=== PATIENT | male | born 1945 | race Caucasian/White ===

== ENCOUNTER 2024-06-14 10:34 | Outpatient (AMB) | payer MEDICAID, SELFPAY ==
--- NOTE | 2024-06-14 10:36 | A.OFFVIS_ITS ---
Vital Signs 06/14/24 10:45 Height 5 ft 6 in Weight 235 lb BMI 37.9 BP 143/76 H Blood Pressure Location Lt brachial Position Sitting Pulse 69 Intake Visit Reasons: Recurrent pilonidal cyst Intake Note: Patient is seen in office for a recurrent pilonidal cyst. Pt c/o: onset one month, irritated, no discharge Manager Gaming Required: No Accompanied by: Other Relationship Allergies Penicillins Allergy (Mild, Verified 06/14/24 10:43) Unknown HPI Comments Details: 70-year-old male patient presenting with complaints of pain over the lower spine for the past month. He reports a prior history of a pilonidal cyst which drained spontaneously in 1971. He denies any subsequent problems following this. He denies any recent fall or other trauma to his spine. He feels he has a new abscess which needs to be drained. He denies fever or chills. [facility] Medical History (Updated 06/14/24 @ 11:01 by Jeff Holder MD) Pilonidal cyst Surgical History Hx of melanoma excision (~2016) Hx of appendectomy (~1954) Hx of lithotripsy (~11/2021) Hx of cardiac pacemaker (~08/2021) Family History Sister FH: ovarian cancer Review of Systems Const Unobtainable due to mental condition Physical Exam Const General: no acute distress Nutritional Appearance: well nourished Orientation/consciousness: patient oriented x3 Limitations: wheelchair Resp Effort & Inspection: normal respiratory effort Back/Spine/Pelvis Other: Intergluteal cleft with an area of slight redness measuring approximately 3 cm in diameter. No fluctuance is palpable and no evidence of an active pilonidal cyst abscess. Area is tender to palpation however. Skin Other: Warm and dry Neuro General: patient oriented x3 Assessment & Plan Assessment & Plan (1) Cellulitis of buttock: Code(s): L03.317 - Cellulitis of buttock Category: Medical Plan 78-year-old male patient presenting with an area of tenderness in the intergluteal cleft suggestive of a pilonidal cyst however on examination there is some skin redness but no evidence of underlying fluctuance to indicate an abscess. I recommended starting antibiotics for 10 days and returning in 2 weeks for follow-up examination. He expressed understanding and agrees with the plan. Coding Level of Care Code New Pt Level 4 (91610) Diagnoses Cellulitis of buttock L03.317
[2024-06-14 10:45] VITALS: BP 143/76; PULSE 69; BMI 37.9
== END 2024-06-14 10:59 | disposition home or self-care (01) ==
PROVIDERS: PCP Emergency Medicine; Visit Provider Surgery
DX: L03.317 Cellulitis of buttock (principal)
CPT/HCPCS: 99204

== ENCOUNTER → 2024-06-14 10:34 | Outpatient (BNVA) | payer MEDICAID, SELFPAY | PROVIDERS: PCP Emergency Medicine; Visit Provider Surgery | DX: L03.317 Cellulitis of buttock (principal) | CPT/HCPCS: 99202 ==

== ENCOUNTER 2024-06-28 08:37 | Outpatient (AMB) | payer MEDICAID, SELFPAY ==
[2024-06-28 08:53] VITALS: BMI 37.9
--- NOTE | 2024-06-28 08:53 | A.OFFVIS_ITS ---
Vital Signs 06/28/24 08:53 Height 5 ft 6 in Weight 234 lb 15.992 oz BMI 37.9 Intake Visit Reasons: 2 week follow up Recurrent pilonidal cyst Intake Note: Patient is seen in office for 2 week follow up, following recurrent pilonidal cyst. Pt c/o: reports no complaints at this time. Hoop Flaring Machine Operator Required: No Accompanied by: IT WEB DEVELOPMENT CONSULTANT Allergies Penicillins Allergy (Mild, Verified 06/28/24 08:59) Unknown Medication List - Last Reconciled 06/28/24 by Jeff Holder MD acetaminophen 650 mg PO Q6H PRN albuterol sulfate 90 mcg/actuation 1 inh inhalation QID allopurinol 200 mg PO DAILY apixaban 5 mg PO BID aspirin (Adult Aspirin Regimen) 81 mg PO DAILY atorvastatin 80 mg PO DAILY cholecalciferol (vitamin D3) (Optimal D3) 1,250 mcg PO QWEEK dextrose 40% 10 grams PO Q15M PRN docusate sodium 100 mg PO DAILY epinephrine 0.3 mg IM Q10M PRN fluoride (sodium) 1.1% (PreviDent 5000 Booster Plus) 1 appl dental BEDTIME furosemide 40 mg PO QAM gabapentin 100 mg PO BID glucagon mg subcut guaifenesin ER 600 mg PO Q12H PRN ipratropium-albuterol 18-103 mcg/actuation sprays inhalation mecobalamin (vitamin B12) mcg PO metoprolol succinate ER 12.5 mg PO DAILY naloxone 0.4 mg subcut Q2M PRN polyethylene glycol 3350 17 grams PO DAILY potassium chloride ER 10 mEq PO DAILY tamsulosin 0.4 mg PO DAILY thiamine HCl (vitamin B1) 100 mg PO DAILY umeclidinium 62.5 mcg/actuation (Incruse Ellipta) 1 inh inhalation DAILY HPI Comments Details: Patient returns for follow-up examination for possible pilonidal cyst. He reports continued pain but denies any redness. He does report a history of trauma to the area several years ago while being transported to the hospital. He is concerned that it could be bone injury to the spine. Denies any bleeding or discharge from the skin. [facility] Medical History Pilonidal cyst Surgical History Hx of melanoma excision (~2016) Hx of appendectomy (~195) Hx of lithotripsy (~11/2021) Hx of cardiac pacemaker (~08/2021) Family History Sister FH: ovarian cancer Social History Unable to assess alcohol history related to: Unknown Patient Tobacco Use Status: Tobacco use Unknown Review of Systems Const Unobtainable due to mental condition Physical Exam Vital Signs: BMI result Body Mass Index 37.9 Const General: no acute distress Nutritional Appearance: well nourished Orientation/consciousness: patient oriented x3 Limitations: wheelchair Resp Effort & Inspection: normal respiratory effort Back/Spine/Pelvis Other: Intergluteal cleft with an area of slight redness measuring approximately 3 cm in diameter. No fluctuance is palpable and no evidence of an active pilonidal cyst abscess. Area is tender to palpation however over the coccyx, well below the area of redness.. Skin Other: Warm and dry Neuro General: patient oriented x3 Assessment & Plan Assessment & Plan (1) Coccydynia: Code(s): M53.3 - Sacrococcygeal disorders, not elsewhere classified Category: Medical Plan Finding is suggestive of coccydynia possibly arthritic or posttraumatic. Suggest obtaining CT of the pelvis to evaluate region of pain. Patient will return following the study to discuss results. Orders: Orders CT pelvis wo IV con Today M53.3 - Sacrococcygeal disorders, not elsewhere classified Coding Level of Care Code Est Pt Level 3 (50938) Diagnoses Coccydynia M53.3
== END 2024-06-28 09:24 | disposition home or self-care (01) ==
LOC: HO.HGS 08:37
PROVIDERS: PCP Emergency Medicine; Visit Provider Surgery
DX: M53.3 Sacrococcygeal disorders, not elsewhere classified (principal)
CPT/HCPCS: 99213

== ENCOUNTER → 2024-06-28 08:37 | Outpatient (BNVA) | payer MEDICAID, SELFPAY | PROVIDERS: PCP Emergency Medicine; Visit Provider Surgery | DX: M53.3 Sacrococcygeal disorders, not elsewhere classified (principal) | CPT/HCPCS: 99212 ==

== ENCOUNTER 2024-08-09 12:48 | Outpatient (REF) | payer MEDICAID, SELFPAY | END 2024-08-09 12:49 | disposition home or self-care (01) | LOC: HO.CT 12:48 | PROVIDERS: PCP Emergency Medicine; Visit Provider Surgery | DX: M53.3 Sacrococcygeal disorders, not elsewhere classified (principal) | CPT/HCPCS: 72192 ==

== ENCOUNTER → 2024-08-09 12:51 | Outpatient (BNV) | payer MEDICAID, SELFPAY | PROVIDERS: PCP Emergency Medicine; Visit Provider Radiology Diagnostic Radiology | DX: M53.3 Sacrococcygeal disorders, not elsewhere classified (principal) | CPT/HCPCS: 72192 ==

== ENCOUNTER 2024-09-17 08:17 | Outpatient (AMB) | payer MEDICAID, SELFPAY ==
--- OUTSIDE RECORDS SUMMARY | 2024-09-17 08:38 | XMS_ITS | Encounter Summary ---
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 Social History Tobacco Use Types Packs/Day Years Used Date Smoking Tobacco: Never Assessed Sex and Gender Information Value Date Recorded Sex Assigned at Not on file Gender Identity Not on file Sexual Orientation Not on file documented as of this encounter Plan of Treatment Not on file documented as of this encounter Procedures Procedure Name Priority Date/Time Associated Diagnosis Comments DRUG ABUSE SCREEN, URINE Routine 08/05/2024 12:00 AM EST Other snf (current) drug therapy documented in this encounter Results * Drug abuse screen, urine (08/05/2024 12:00 AM EST) Amphetamines Urine Negative Cutoff=10 00 ng/mL 08/08/2024 11:05 AM EST [facility] Comment:Amphetamine test inc ludes Amphetamine and Methamphetamine. Barbiturate Negative Cutoff=30 0 ng/mL 08/08/2024 11:05 AM EST [facility] Benzodiazepines Negative Cutoff=30 0 ng/mL 08/08/2024 11:05 AM EST [facility] Cannabinoid Negative Cutoff=50 ng/mL 08/08/2024 11:05 AM EST [facility] Cocaine (Metabolite) Screen Urine Negative Cutoff=30 0 ng/mL 08/08/2024 11:05 AM EST [facility] Opiates Negative Cutoff=30 0 ng/mL 08/08/2024 11:05 AM EST [facility] Comment:Opiate test includes Codeine and Morphine only. Phencyclidine (PCP) Negative Cutoff=25 ng/mL 08/08/2024 11:05 AM EST [facility] Ethanol Urine Negative Cutoff=0. 020 % 08/08/2024 11:05 AM EST [facility] Urine Urine specimen obtained by clean catch procedure / Unknown Non-blood Collection / Unknown 08/05/2024 08/06/2024 11:10 AM EST Narrative [facility] - 08/08/2024 11:05 AM EST Performed at: ??01 - [facility] [address] [place], [place] ??[id number] R Programmer: Lavelle Johnson PhD, Phone: ??[phone] Homar Watson MD LAB URINE ORDERABLES [facility] documented in this encounter Visit Diagnoses Diagnosis Other snf (current) drug therapy documented in this encounter Care Teams Manager Night Relationship Specialty Start Date End Date Homar Watson MD [address] [place] [address] PCP - General Family Medicine 07/11/24 documented as of this encounter
--- OUTSIDE RECORDS SUMMARY | 2024-09-17 08:39 | XMS_ITS | Encounter Summary ---
Author Organization [employer] Address [address] [place] [address] Care Team Providers Care Digital Marketing Lead Name Role Phone Homar Watson MD Primary Care Provider Encounter Details Date Type Department Care Team (Latest Contact Info) Description 07/11/2024 Lab Requisition [facility] - Main Lab [address] [facility] [place] [address] Homar Watson MD [facility] [address] [place], [place] [id number] Chronic kidney disease, unspecified; Type 2 diabetes mellitus without complications (CMS/HCC) Social History Tobacco Use Types Packs/Day Years Used Date Smoking Tobacco: Never Assessed Sex and Gender Information Value Date Recorded Sex Assigned at Not on file Gender Identity Not on file Sexual Orientation Not on file documented as of this encounter Plan of Treatment Not on file documented as of this encounter Procedures Procedure Name Priority Date/Time Associated Diagnosis Comments BASIC METABOLIC PANEL Routine 07/11/2024 5:11 AM EST Chronic kidney disease, unspecified Type 2 diabetes mellitus without complications (CMS/HCC) documented in this encounter Results * (ABNORMAL) Basic metabolic panel (07/11/2024 5:11 AM EST) Sodium 141 133 - 145 mmol/L LAB CHEMISTRY METHOD 07/11/2024 9:03 AM [facility] LAB Potassium 4.5 3.5 - 5.5 mmol/L LAB CHEMISTRY METHOD 07/11/2024 9:03 AM EST [facility] LAB Chloride 102 96 - 110 mmol/L LAB CHEMISTRY METHOD 07/11/2024 9:03 AM [facility] LAB CO2 34(H) 21 - 32 mmol/L LAB CHEMISTRY METHOD 07/11/2024 9:03 AM EST [facility] LAB Anion Gap 5 3 - 11 LAB CHEMISTRY METHOD 07/11/2024 9:03 AM [facility] LAB Glucose 134(H) 70 - 100 mg/dL LAB CHEMISTRY METHOD 07/11/2024 9:03 AM [facility] BUN 21 5 - 25 mg/dL LAB CHEMISTRY METHOD 07/11/2024 9:03 AM [facility] LAB Creatinine 1.31(H) 0.70 - 1.30 mg/dL LAB CHEMISTRY METHOD 07/11/2024 9:03 AM [facility] LAB eGFR 56(L) >=60 mL/min/1. 73m2 LAB CHEMISTRY METHOD 07/11/2024 9:03 AM [facility] LAB Comment:Calculation based on the??Chronic Kidney Disease Epidemiology Collaboration (CKD-EPI) equation refit??without adjustment for race. BUN/Creatinine Ratio 16.0 LAB CHEMISTRY METHOD 07/11/2024 9:03 AM [facility] LAB Calcium 9.3 8.5 - 10.5 mg/dL LAB CHEMISTRY METHOD 07/11/2024 9:03 AM [facility] LAB Blood Venous blood specimen / Unknown Venipuncture / Unknown 07/11/2024 5:11 AM EST 07/11/2024 7:54 AM EST Homar Watson MD LAB BLOOD ORDERABLES [facility] LAB [address] [place] [address], documented in this encounter Visit Diagnoses Diagnosis Chronic kidney disease, unspecified Type 2 diabetes mellitus without complications (CMS/HCC) documented in this encounter Care Teams Digital Marketing Lead Relationship Specialty Start Date End Date Homar Watson MD [address] [place] [address] PCP - General Family Medicine 07/11/24 documented as of this encounter
--- OUTSIDE RECORDS SUMMARY | 2024-09-17 08:39 | XMS_ITS | Encounter Summary ---
Author Organization [employer] Address [address] [place] [address] Care Team Providers Care Recreational Therapy Technician Name Role Phone Homar Watson MD Primary Care Provider Encounter Details Date Type Department Care Team (Late st Contact Info) Description 07/22/2024 Lab Requisition [facility] - Main Lab [address] [facility] [place] [address] Homar Watson MD [address] [place] [address] Elevated urine levels of drugs, medicaments and biological substances; Encounter for blood-alcohol and blood-drug test Social History Tobacco Use Types Packs/Day Years Used Date Smoking Tobacco: Never Assessed Sex and Gender Information Value Date Recorded Sex Assigned at Not on file Gender Identity Not on file Sexual Orientation Not on file documented as of this encounter Plan of Treatment Not on file documented as of this encounter Procedures Procedure Name Priority Date/Time Associated Diagnosis Comments DRUG ABUSE SCREEN 8A PANEL, URINE Routine 07/21/2024 11:00 AM EST Elevated urine levels of drugs, medicaments and biological substances Encounter for blood-alcohol and blood-drug test documented in this encounter Results * Drug abuse screen 8a panel, urine (07/21/2024 11:00 AM EST) Amphetamine Screen, Ur Negative Negative LAB CHEMISTRY METHOD 07/22/2024 3:17 PM EST [facility] Comment:Certain OTC medicati ons containing ephedrine, phenylephrine, pseudoephedrine and phenylpropanolamine can cause false positive results. Barbiturate Screen, Ur Negative Negative LAB CHEMISTRY METHOD 07/22/2024 3:17 PM EST [facility] Benzodiazepine Screen, Ur Negative Negative LAB CHEMISTRY METHOD 07/22/2024 3:17 PM EST [facility] Cocaine Screen, Ur Negative Negative LAB CHEMISTRY METHOD 07/22/2024 3:17 PM EST [facility] Opiate Screen, Ur Negative Negative LAB CHEMISTRY METHOD 07/22/2024 3:17 PM EST [facility] Cannabinoid (THC) Screen, Ur Negative Negative LAB CHEMISTRY METHOD 07/22/2024 3:17 PM EST [facility] Comment:Specimens from patie nts taking pantoprazole sodium (Protonix) have been shown to produce false positive results. Oxycodone Screen, Ur Negative Negative LAB CHEMISTRY METHOD 07/22/2024 3:17 PM EST [facility] Fentanyl, Ur Negative Negative LAB CHEMISTRY METHOD 07/22/2024 3:17 PM EST [facility] Urine Urine specimen obtained by clean catch procedure / Unknown 07/21/2024 11:00 AM EST 07/22/2024 11:41 AM EST Narrative [facility] - 07/22/2024 3:17 PM EST Assay cutoffs: Amphetamines ? 1000 ng/mL Barbiturates ?200 ng/mL Benzodiazepines ?? 200 ng/mL Cocaine ? 300 ng/mL Fentanyl ?1 ng/mL Opiates ? 300 ng/mL Oxycodone ? 100 ng/mL THC ?50 ng/mL Semi-quantitative assay for screening purposes only. Unconfirmed screening result should not be used for non-medical purposes. *ALTERNATE METHOD CONFIRMATION DONE UPON REQUEST ONLY* Homar Watson MD LAB URINE ORDERABLES [facility] LAB [address] [place] [address], documented in this encounter Visit Diagnoses Diagnosis Elevated urine levels of drugs, medicaments and biological substances Encounter for blood-alcohol and blood-drug test documented in this encounter Care Teams Recreational Therapy Technician Relationship Specialty Start Date End Date Homar Watson MD [address] [place] [address] PCP - General Family Medicine 07/11/24 documented as of this encounter
--- OUTSIDE RECORDS SUMMARY | 2024-09-17 08:40 | XMS_ITS | Clinical Summary ---
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 07/22/2024 Lab Requisition [facility] Lab [address] [place] [phone] Homar Watson MD Elevated urine levels of drugs, medicaments and biological substances; Encounter for blood-alcohol and blood-drug test 07/11/2024 Lab Requisition [facility] Lab [address] [place] [phone] Homar Watson MD Chronic kidney disease, unspecified; Type 2 diabetes mellitus without complications (CMS/HCC) from Last 3 Months Social History Tobacco Use Types Packs/Day Years Used Date Smoking Tobacco: Never Assessed Sex and Gender Information Value Date Recorded Sex Assigned at Not on file Gender Identity Not on file Sexual Orientation Not on file Plan of Treatment Health Maintenance Due Date Last Done Comments Pneumococcal Vaccine: 65+ Ye ars (1 of 2 - PCV) 1951 Diabetes: Annual Foot Exam 1955 Diabetes: Annual Retina Eye Exam 1955 DTaP,Tdap,and Td Vaccines (1 - Tdap) 1964 Zoster Vaccines (1 of 2) 1995 RSV Immunization Patients 60 + Years Old (1 - 1-dose 75+ series) 2020 COVID-19 Vaccine ( - 2023-2 5 season) 2024 Influenza Vaccine (#1) 2024 Cholesterol Screening (Lipid Panel) 06/16/2024 Depression Screening 06/16/2024 Falls Risk Assessment 06/16/2024 Hepatitis C Screening 06/16/2024 Social Influencers of Health Screening 06/16/2024 Diabetes: Annual Urine Albumin-Creatinine Ratio (uACR) 07/11/2024 Diabetes: Blood Sugar Contro l Test (HGBA1C) 07/11/2024 Diabetes: Annual GFR (Glomer ular Filtration Rate) 07/11/2025 07/11/2024 HIB Vaccines Aged Out No longer eligi ble based on patient's age to complete this topic HPV Vaccines Aged Out No longer eligi ble based on patient's age to complete this topic Hepatitis A Vaccines Aged Out No long er eligible based on patient's age to complete this topic Hepatitis B Vaccines Aged Out No long er eligible based on patient's age to complete this topic IPV Vaccines Aged Out No longer eligi ble based on patient's age to complete this topic MMR Vaccines Aged Out No longer eligi ble based on patient's age to complete this topic Meningococcal ACWY Vaccine Aged Out N o longer eligible based on patient's age to complete this topic RSV Immunization Patients Un mayo 20 months Aged Out No longer eligible b ased on patient's age to complete this topic Varicella Vaccines Aged Out No longer eligible based on patient's age to complete this topic Procedures Procedure Name Priority Date/Time Associated Diagnosis Comments DRUG ABUSE SCREEN, URINE Routine 08/05/2024 12:00 AM EST Other fci (current) drug therapy DRUG ABUSE SCREEN 8A PANEL, URINE Routine 07/21/2024 11:00 AM EST Elevated urine levels of drugs, medicaments and biological substances Encounter for blood-alcohol and blood-drug test BASIC METABOLIC PANEL Routine 07/11/2024 5:11 AM EST Chronic kidney disease, unspecified Type 2 diabetes mellitus without complications (CMS/HCC) from Last 3 Months Results * Drug abuse screen, urine (08/05/2024 [...] AM EST Performed at: ??01 - [facility] [address] [place], [place] ??[id number] Mechanics Supervisor: Lavelle Johnson PhD, Phone: ??[phone] Homar Watson MD LAB URINE ORDERABLES [facility] * Drug abuse screen 8a panel, urine [...] Negative LAB CHEMISTRY METHOD 07/22/2024 3:[address] [facility] Urine Urine specimen obtained by clean catch procedure / Unknown 07/21/2024 11:00 AM EST 07/22/2024 11:41 AM EST [facility] - 07/22/2024 3:17 PM EST Assay [...] ONLY* Homar Watson MD LAB URINE ORDERABLES [facility] LAB [address] [place] [address], * (ABNORMAL) Basic metabolic panel (07/11/2024 5:11 AM EST) Sodium 141 133 - 145 mmol/L LAB CHEMISTRY METHOD 07/11/2024 9:[address] [facility] Potassium 4.5 3.5 - 5.5 mmol/L LAB CHEMISTRY METHOD 07/11/2024 9:[address] [facility] Chloride 102 96 - 110 mmol/L LAB CHEMISTRY METHOD 07/11/2024 9:[address] [facility] CO2 34(H) 21 - 32 mmol/L LAB CHEMISTRY METHOD 07/11/2024 9:[address] [facility] Anion Gap 5 3 - 11 LAB CHEMISTRY METHOD 07/11/2024 9:[address] [facility] Glucose 134(H) 70 - 100 mg/dL LAB CHEMISTRY METHOD 07/11/2024 9:[address] [facility] BUN 21 5 - 25 mg/dL LAB CHEMISTRY METHOD 07/11/2024 9:[address] [facility] Creatinine 1.31(H) 0.70 - 1.30 mg/dL LAB CHEMISTRY METHOD 07/11/2024 9:[address] [facility] eGFR 56(L) >=60 mL/min/1. 73m2 LAB CHEMISTRY METHOD 07/11/2024 9:[address] [facility] Comment:Calculation based on the??Chronic Kidney Disease Epidemiology Collaboration (CKD-EPI) equation refit??without adjustment for race. BUN/Creatinine Ratio 16.0 LAB CHEMISTRY METHOD 07/11/2024 9:[address] [facility] Calcium 9.3 8.5 - 10.5 mg/dL LAB CHEMISTRY METHOD 07/11/2024 9:[address] [facility] Blood Venous blood specimen / Unknown Venipuncture / Unknown 07/11/2024 5:11 AM EST 07/11/2024 7:54 AM EST Homar Watson MD LAB BLOOD ORDERABLES [facility] LAB [address] [place] [address], from Last 3 Months Care Teams Wheel Assembler Relationship Specialty Start Date End Date Homar Watson MD [address] [place] [address] PCP - General Family Medicine 07/11/24
--- NOTE | 2024-09-17 08:47 | MHC.OFFVIS ---
Vital Signs 09/17/24 08:55 Height 5 ft 6 in Weight 230 lb BMI 37.1 BP 124/58 L Blood Pressure Location Lt brachial Position Sitting Pulse 70 Intake Visit Reasons: CT Reults (Dr Holder patient) Intake Note: Dr. Holder out this morning. Patient being seen by Dr. Florez. Patient here to discuss Pelvis CT results. CT~ 08-09-2024. Director Commercial Sales Required: No Accompanied by: Thelma BENNETT from [facility] Allergies Penicillins Allergy (Mild, Verified 09/17/24 08:57) Unknown HPI Comments Details: Patient presents with a family member. He is wheelchair bound. Dr. Holder was unable to see the patient this morning and I am reviewing the patient's CT scan results with him. 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 A copy of the scan results were given to the patient. [facility] Medical History Pilonidal cyst Surgical History Hx of melanoma excision (~2016) Hx of appendectomy (~1954) Hx of lithotripsy (~11/2021) Hx of cardiac pacemaker (~08/2021) Family History Sister FH: ovarian cancer Social History Unable to assess alcohol history related to: Unknown Patient Tobacco Use Status: Tobacco use Unknown Physical Exam Vital Signs: Last Vital Signs Pulse 70 09/17/24 08:55 BP 124/58 L 09/17/24 08:55 BMI result Body Mass Index 37.1 Back/Spine/Pelvis Other: Status quo Assessment & Plan Assessment & Plan (1) Coccydynia: Code(s): M53.3 - Sacrococcygeal disorders, not elsewhere classified Category: Surgical Plan I discussed with the patient therapeutic options which include conservative therapy with is taking analgesics, consideration for evaluation by other chronic pain clinic or neurosurgery. He would like to pursue chronic pain clinic and arrangements were made for this. All questions answered. Patient will otherwise follow-up p.r.n.. No acute surgical issues to be addressed at this time. Coding Level of Care Code Est Pt Level 3 (53428) Diagnoses Coccydynia M53.3
[2024-09-17 08:55] VITALS: BP 124/58; PULSE 70; BMI 37.1
== END 2024-09-17 09:14 | disposition home or self-care (01) ==
PROVIDERS: PCP Emergency Medicine; Visit Provider Surgery
DX: M53.3 Sacrococcygeal disorders, not elsewhere classified (principal)
CPT/HCPCS: 99213

== ENCOUNTER → 2024-09-17 08:17 | Outpatient (BNVA) | payer MEDICAID, SELFPAY | PROVIDERS: PCP Emergency Medicine; Visit Provider Surgery | DX: M53.3 Sacrococcygeal disorders, not elsewhere classified (principal) | CPT/HCPCS: 99212 ==

== ENCOUNTER 2025-05-02 04:59 | Observation (INO) | payer MEDICAID, SELFPAY ==
--- NOTE | 2025-05-02 | ECG_ITS ---
Test Reason : CP Blood Pressure : */* mmHG Vent. Rate : 70 BPM Atrial Rate : 256 BPM P-R Int : * ms QRS Dur : 188 ms QT Int : 520 ms P-R-T Axes : * -84 93 degrees QTcB Int : 561 ms Atrial flutter with Ventricular-paced rhythm Abnormal ECG No previous ECGs available Referred By: Generic ED Physician Electronically Signed By: RODOLFO FITZGERALD MD
--- NOTE | ~2025-05-02 | XR_ITS ---
CLINICAL HISTORY: chest pain 1 view chest x-ray. Comparison: None Findings: Normal lung volumes. Mild pleural-parenchymal disease left lower lobe. No pneumothorax Cardiomegaly. Single chamber pacemaker. Post median sternotomy aortic closure device placement. No passive venous congestion. No midline shift or tracheal deviation. No acute fracture. Impression: 1. Mild pleural-parenchymal disease left lower lobe. This document has been electronically signed by: Sea Stoner MD on 05/02/2025 05:48:48
[2025-05-02 05:06] VITALS: BP 122/67; BP 146/74; PULSE 69; PULSE 80; RESP 16; TEMP 36.4; O2SAT 95; O2SAT 96; BMI 36.6
[2025-05-02 05:11] VITALS: BP 122/67; PULSE 69; RESP 16; TEMP 36.4; O2SAT 95
--- NOTE | 2025-05-02 05:15 | ED.CHESTPAIN ---
HPI - Chest Pain General Chief Complaint: Chest Pain Stated Complaint: CHEST PAIN Time Seen by Provider: 05/02/25 05:09 Source: patient and EMS Limitations: no limitations History of Present Illness ED Provider: HPI narrative: 79-year-old male reports history of [place] in the past, quadruple bypass, reports woke up from sleep with midsternal chest pain nonradiating no nausea no vomiting no diaphoresis, but he was given aspirin and nitroglycerin by the time of my evaluation he was chest pain-free. He reports to be a remote smoker but not in many years. Related Data Home Medications ?Medication ?Instructions ?Recorded ?Confirmed acetaminophen 325 mg capsule 650 mg PO Q6H PRN 06/14/24 09/17/24 albuterol sulfate 90 mcg/actuation 1 inh inhalation QID 06/14/24 09/17/24 aerosol inhaler allopurinol 200 mg tablet 200 mg PO DAILY 06/14/24 09/17/24 apixaban 5 mg tablet 5 mg PO BID 06/14/24 09/17/24 aspirin 81 mg tablet,delayed 81 mg PO DAILY 06/14/24 09/17/24 release (Adult Aspirin Regimen) atorvastatin 80 mg tablet 80 mg PO DAILY 06/14/24 09/17/24 cholecalciferol (vitamin D3) 1,250 1,250 mcg PO QWEEK 06/14/24 09/17/24 mcg (50,000 unit) capsule (Optimal D3) dextrose 40 % oral gel 10 g PO Q15M PRN 06/14/24 09/17/24 docusate sodium 100 mg capsule 100 mg PO DAILY 06/14/24 09/17/24 epinephrine 0.3 mg/0.3 mL 0.3 mg IM Q10M PRN 06/14/24 09/17/24 injection syringe fluoride (sodium) 1.1 % dental 1 appl dental BEDTIME 06/14/24 09/17/24 paste (PreviDent 5000 Booster Plus) furosemide 20 mg tablet 40 mg PO QAM 06/14/24 09/17/24 gabapentin 100 mg capsule 100 mg PO BID 06/14/24 09/17/24 glucagon 1 mg/0.2 mL subcutaneous mg subcut 06/14/24 09/17/24 auto-injector guaifenesin 600 mg tablet, 600 mg PO Q12H PRN 06/14/24 09/17/24 extended release 12 hr ipratropium 18 mcg-albuterol 103 spray inhalation 06/14/24 09/17/24 mcg/actuation aerosol inhaler mecobalamin (vitamin B12) 500 mcg mcg PO 06/14/24 09/17/24 chewable tablet metoprolol succinate 25 mg 12.5 mg PO DAILY 06/14/24 09/17/24 tablet,extended release 24 hr naloxone 0.4 mg/mL injection 0.4 mg subcut Q2M PRN 06/14/24 09/17/24 solution polyethylene glycol 3350 17 17 g PO DAILY 06/14/24 09/17/24 gram/dose oral powder potassium chloride 10 mEq 10 meq PO DAILY 06/14/24 09/17/24 capsule,extended release tamsulosin 0.4 mg capsule 0.4 mg PO DAILY 06/14/24 09/17/24 thiamine HCl (vitamin B1) 100 mg 100 mg PO DAILY 06/14/24 09/17/24 tablet umeclidinium 62.5 mcg/actuation 1 inh inhalation DAILY 06/14/24 09/17/24 blister powder for inhalation (Incruse Ellipta) Allergies Allergy/AdvReac Type Severity Reaction Status Date / Time Penicillins Allergy Mild Unknown Verified 05/02/25 05:11 Review of Systems Constitutional: Constitutional: Reports as per [facility] Past Medical History Medical History Pilonidal cyst Surgical History Hx of melanoma excision (~2016) Hx of appendectomy (~1954) Hx of lithotripsy (~11/2021) Hx of cardiac pacemaker (~08/2021) Family History Family History Sister FH: ovarian cancer Social History Social History Unable to assess alcohol history related to: Unknown Patient Tobacco Use Status: Tobacco use Unknown Smoked in Last 30 Days: No Use of substances other than those prescribed or required for medical reasons: No Advance Directives: No Advance Directives Information Provided: Yes Physical Exam Vital Signs: Vital Signs: Last Vital Signs Temp 97.6 F 05/02/25 05:11 Pulse 70 05/02/25 09:07 Resp 14 05/02/25 09:07 BP 124/37 L 05/02/25 09:07 Pulse Ox 97 05/02/25 09:07 O2 Del Method Room Air 05/02/25 09:07 BMI result Body Mass Index 36.6 Const: Other: Gen: ?Overall well-appearing patient HEENT: PERRLA, EOMI, MMM, Neck: Supple, no LAD CV: S1-S2 radial pulses +2, mid incisional scar Resp: ?No wheezing rales rhonchi no stridor moving air well Abd: ?Bowel sounds are present, no tenderness no rebound no rigidity MSK: FROM, strength 5/5 all extremities, no lower extremity edema Skin: Warm, dry, intact, Neuro: ?Alert and oriented x3, moving upper and lower extremities symmetrically, no obvious facial asymmetry noted Course Reevaluation(s) Reevaluation #1: Patient was signed out to me pending repeat troponin, who presented from the intermediate with chest pain he has a paced rhythm by EKG,initial tropi 111 repeat 121.8 I spoke with the taker off braker machine on-call Dr. Aponte because history of CABG in the past because of the EKG he is full paste he recommend admission he recommend cardiac echo. Discussed with the hospitalist Time: 09:29 Medical Decision Making Medical Decision Making [facility] Narrative: 5:39 AM 05/02/2025 (Dr. Julio Breen): Patient is presenting with chest pain, in the setting of CAD, he was given nitroglycerin and aspirin EN route, currently chest pain-free, anticipate cardiac enzymes x2 2 hours apart, ECG with V paced rhythm negative Sgarbossa criteria, chest x-ray without pneumothorax, no mediastinal widening, this is not severe chest pain radiating to the back to suspect aortic dissection and no hypoxia tachycardic to suspect PE. Patient's care will be signed out to incoming provider pending 2nd troponin at 7:30 AM Differential Diagnosis Differential Diagnoses: The differential diagnosis associated with the presentation includes (ACS, pneumothorax, aortic dissection, PE, Boerhaave syndrome) Admission/Observation Consideration of admission/observation: Escalation of care including admission/observation considered Lab Data [facility] Lab Attestation statement: I reviewed the patient's lab results. 05/02/25 05:20 05/02/25 05:20 Labs: Lab Results 05/02/25 05/02/25 Range/Units 05:20 07:57 WBC 8.8 (4.8-10.8) X10*3/uL RBC 3.72 L (4.60-5.80) X10*6/uL Hgb 12.8 L (14.0-18.0) g/dl Hct 36.7 L (42.0-52.0) % MCV 98.7 H (80.0-98.0) fL MCH 34.4 H (27.0-33.0) pg MCHC 34.9 (31.0-36.0) g/dl RDW 13.8 (11.0-16.0) % Plt Count 163 (160-400) X10*3/uL MPV 11.0 (9.4-12.4) fL Immature Gran % (Auto) 0.3 (0.0-0.4) % Neut % (Auto) 70.9 (45-73) % Lymph % (Auto) 15.0 L (20-40) % Saunders % (Auto) 10.5 (2-11) % Eos % (Auto) 2.8 (0-4) % Baso % (Auto) 0.5 (0-2) % Lymph # (Auto) 1.3 (1.2-4.9) X10*3/uL Saunders # (Auto) 0.9 (0.1-1.2) X10*3/uL Eos # (Auto) 0.3 (0.0-0.4) X10*3/uL Baso # (Auto) 0.0 (0.0-0.2) X10*3/uL Abs Immat Gran (auto) 0.03 (0.00-0.03) X10*3/uL Absolute Neuts (auto) 6.2 (2.0-8.3) x10*3/uL Absolute Nucleated RBC 0.000 (0.0-0.012) X10*3/uL Nucleated RBC % (auto) 0.0 (0.0-0.2) /100WBC Sodium 141 (135-145) mmol/L Potassium 3.6 (3.3-5.1) mmol/L Chloride 103 (96-108) mmol/L Carbon Dioxide 27 (22-29) mmol/L Anion Gap 15 (12-20) BUN 25 H (9-16) mg/dL Creatinine 1.15 (0.5-1.4) mg/dL Estim Creat Clear Calc 58.5 Estimated GFR > 60 Random Glucose 148 H (60-115) mg/dL Calcium 9.0 (8.4-10.2) mg/dL Total Bilirubin 0.7 (0.0-1.0) mg/dL AST 36 (5-37) U/L ALT 31 (0-40) U/L Alkaline Phosphatase 98 (39-117) U/L Troponin I High Sens 111.5 H* 121.8 H* (<3.5-35.0) ng/L Total Protein 7.1 (6.5-8.0) g/dL Albumin 3.9 (3.5-5.0) g/dL Lipase 17 (8-78) U/L Independent Interpretation I performed an independent interpretation of an: EKG (70 beats per minute, ventricular paced rhythm) and Plain X-Ray (Pacemaker in place, sternotomy wires in place, no consolidations no mediastinal widening, no pneumothorax) Radiology Impression Discussion of test interpretation with radiology: I have reviewed the radiologist's reading. Independent Historian Clinical information obtained from an independent historian. History obtained from or confirmed by: EMS Chronic Conditions Patient?s care impacted by: Hypertension Discharge Plan Discharge Clinical Impression: Chest pain, precordial Patient Disposition: Admitted As Inpatient Print Language: Latvian
--- NOTE | 2025-05-02 05:23 | MHC.EDTECH ---
Patient BIBA,changed into hospital attire,EKG completed per order and signed by provider, pt placed on the potline monitor, vitals taken,labs drawn and sent to lab,call weiss in reach
[2025-05-02 05:25] LABS: MANUAL DIFF FLAG NO
[2025-05-02 05:26] LABS: Hematocrit 36.7 % (42.0-52.0); Hemoglobin 12.8 g/dl (14.0-18.0); Imm Gran Abs Auto 0.03 X10*3/uL (0.00-0.03); Imm Gran Pct Auto 0.3 % (0.0-0.4); Lymphocytes Absolute Auto 1.3 X10*3/uL (1.2-4.9); Mean Corpuscular HGB Conc 34.9 g/dl (31.0-36.0); Mean Corpuscular Hemoglobin 34.4 pg (27.0-33.0); Mean Corpuscular Volume 98.7 fL (80.0-98.0); NRBC Abs Auto 0.000 X10*3/uL (0.0-0.012); NRBC Pct Auto 0.0 /100WBC (0.0-0.2); Platelet Count 163 X10*3/uL (160-400); Red Blood Count 3.72 X10*6/uL (4.60-5.80); White Blood Count 8.8 X10*3/uL (4.8-10.8)
[2025-05-02 05:39] LABS: Alanine Aminotransferase 31 U/L (0-40); Albumin Level 3.9 g/dL (3.5-5.0); Alkaline Phosphatase 98 U/L (39-117); Anion Gap 15 (12-20); Aspartate Amino Transferase 36 U/L (5-37); Blood Urea Nitrogen 25 mg/dL (9-16); Calcium 9.0 mg/dL (8.4-10.2); Carbon Dioxide 27 mmol/L (22-29); Chloride 103 mmol/L (96-108); Creatinine Clr Calc Pharmacy 58.5; Estimated Glomerular Filt Rate > 60; Lipase 17 U/L (8-78); Potassium 3.6 mmol/L (3.3-5.1); Sodium 141 mmol/L (135-145); Total Protein 7.1 g/dL (6.5-8.0)
[2025-05-02 05:49] LABS: Troponin-I High Sensitivity 111.5 ng/L (<3.5-35.0)
--- OUTSIDE RECORDS SUMMARY | 2025-05-02 06:12 | XMS_ITS | Encounter Summary ---
Author Organization [employer] Address [address] [place] [address] Care Team Providers Care Postdoctoral Scientist Name Role Phone Homar Watson MD Primary Care Provider [phone] Encounter Details Date Type Department Care Team (Late st Contact Info) Description 10/15/2024 Lab Requisition [facility] - Main Lab [address] [facility] [place] [address] Homar Watson MD [facility] [address] Chronic systolic (congestive) heart failure (CMS/HCC V24, CMS/HCC V28); Anemia, unspecified; Chronic kidney disease, unspecified; Chronic obstructive pulmonary disease, unspecified (CMS/HCC V24, CMS/HCC V28) Social History Tobacco Use Types Packs/Day Years Used Date Smoking Tobacco: Never Assessed Sex and Gender Information Value Date Recorded Sex Assigned at Not on file Legal Sex Male 3:40 PM EDT Gender Identity Not on file Sexual Orientation Not on file documented as of this encounter Plan of Treatment Not on file documented as of this encounter Procedures Procedure Name Priority Date/Time Associated Diagnosis Comments COMPLETE BLOOD COUNT Routine 10/15/2024 6:14 AM EST Chronic systolic (congestive) heart failure (CMS/HCC) Anemia, unspecified Chronic kidney disease, unspecified Chronic obstructive pulmonary disease, unspecified (CMS/HCC) B-TYPE NATRIURETIC PEPTIDE Routine 10/15/2024 6:14 AM EST Chronic systolic (congestive) heart failure (CMS/HCC) Anemia, unspecified Chronic kidney disease, unspecified Chronic obstructive pulmonary disease, unspecified (CMS/HCC) BASIC METABOLIC PANEL Routine 10/15/2024 6:14 AM EST Chronic systolic (congestive) heart failure (CMS/HCC) Anemia, unspecified Chronic kidney disease, unspecified Chronic obstructive pulmonary disease, unspecified (CMS/HCC) documented in this encounter Results * (ABNORMAL) B-type natriuretic peptide (10/15/2024 6:14 AM EST) Pathologist [facility] BNP 113(H) <=100 pcg/mL LAB CHEMISTRY METHOD 10/15/2024 12:22 PM [facility] Blood Venous blood specimen / Unknown Venipuncture / Unknown 10/15/2024 6:14 AM EST 10/15/2024 10:50 AM EST us Homar Watson MD LAB BLOOD ORDERABLES Final R esult [facility] [address] [place] [address], [place] [phone] * (ABNORMAL) Basic metabolic panel (10/15/2024 6:14 AM EST) [facility] Sodium 139 133 - 145 mmol/L LAB CHEMISTRY METHOD 10/15/2024 1:01 PM [facility] Potassium 4.4 3.5 - 5.5 mmol/L LAB CHEMISTRY METHOD 10/15/2024 1:01 PM [facility] Chloride 100 96 - 110 mmol/L LAB CHEMISTRY METHOD 10/15/2024 1:01 PM [facility] CO2 30 21 - 32 mmol/L LAB CHEMISTRY METHOD 10/15/2024 1:01 PM [facility] Anion Gap 9 3 - 11 LAB CHEMISTRY METHOD 10/15/2024 1:01 PM [facility] Glucose 107(H) 70 - 100 mg/dL LAB CHEMISTRY METHOD 10/15/2024 1:01 PM [facility] BUN 30(H) 5 - 25 mg/dL LAB CHEMISTRY METHOD 10/15/2024 1:01 PM [facility] Creatinine 1.57(H) 0.70 - 1.30 mg/dL LAB CHEMISTRY METHOD 10/15/2024 1:01 PM [facility] eGFR 45(L) >=60 mL/min/1. 73m2 LAB CHEMISTRY METHOD 10/15/2024 1:01 PM [facility] Comment:Calculation based on the Chronic Kidney Disease Epidemiology Collaboration (CKD-EPI) equation refit without adjustment for race. BUN/Creatinine Ratio 19.1 LAB CHEMISTRY METHOD 10/15/2024 1:01 PM [facility] Calcium 8.9 8.5 - 10.5 mg/dL LAB CHEMISTRY METHOD 10/15/2024 1:01 PM [facility] Blood Venous blood specimen / Unknown Venipuncture / Unknown 10/15/2024 6:14 AM EST 10/15/2024 10:50 AM EST Homar Watson MD LAB BLOOD ORDERABLES Final R esult [facility] [address] [place] [address], * (ABNORMAL) Complete blood count (10/15/2024 6:14 AM EST) WBC 7.0 4.8 - 10.8 K/[facility] LAB HEMETOLOGY METHOD 10/15/2024 12:09 PM [facility] RBC 3.70(L) 4.50 - 5.50 M/[facility] LAB HEMETOLOGY METHOD 10/15/2024 12:09 PM [facility] Hemoglobin 12.2(L) 13.5 - 17.5 g/dL LAB HEMETOLOGY METHOD 10/15/2024 12:09 PM [facility] Hematocrit 38.4(L) 42.0 - 54.0 % LAB HEMETOLOGY METHOD 10/15/2024 12:09 PM [facility] MCV 104.6(H) 79.0 - 98.0 FL LAB HEMETOLOGY METHOD 10/15/2024 12:09 PM [facility] MCH 33.2(H) 27.0 - 32.0 pcg LAB HEMETOLOGY METHOD 10/15/2024 12:09 PM [facility] MCHC 31.8(L) 32.0 - 37.0 g/dL LAB HEMETOLOGY METHOD 10/15/2024 12:09 PM [facility] RDW 13.7 11.0 - 15.0 % LAB HEMETOLOGY METHOD 10/15/2024 12:09 PM [facility] Platelets 168 130 - 400 K/mcL LAB HEMETOLOGY METHOD 10/15/2024 12:09 PM [facility] MPV 12.2(H) 7.0 - 11.0 FL LAB HEMETOLOGY METHOD 10/15/2024 12:09 PM [facility] NRBC 0.0 <1.0 % LAB HEMETOLOGY METHOD 10/15/2024 12:09 PM [facility] NRBC Absolute 0.00 <0.10 K/mcL LAB HEMETOLOGY METHOD 10/15/2024 12:09 PM [facility] Blood Venous blood specimen / Unknown Venipuncture / Unknown 10/15/2024 6:14 AM EST 10/15/2024 10:50 AM EST us Homar Watson MD LAB BLOOD ORDERABLES Final R esult [facility] [address] [place] [address], documented in this encounter Visit Diagnoses Diagnosis Chronic systolic (congestive) heart failure (CMS/HCC V24, CMS/HCC V28) Anemia, unspecified Chronic kidney disease, unspecified Chronic obstructive pulmonary disease, unspecified (CMS/HCC V24, CMS/HCC V28) documented in this encounter Care Teams Postdoctoral Scientist Relationship Specialty Start Date End Date Homar Watson MD [address] [place] [address] PCP - General Family Medicine 07/11/24 documented as of this encounter
--- OUTSIDE RECORDS SUMMARY | 2025-05-02 06:12 | XMS_ITS | Encounter Summary ---
Author Organization [employer] Address [address] [place] [address] Care Team Providers Care Cane Weigher Name Role Phone Homar Watson MD Primary Care Provider [phone] Encounter Details Date Type Department Care Team (Late st Contact Info) Description 03/18/2025 Lab Requisition [facility] - Main Lab [address] [facility] [place] [address] Homar Watson MD [address] [place] [address] Other dietary vitamin B12 deficiency anemia; Anemia, unspecified Social History Tobacco Use Types Packs/Day Years [...] Procedure Name Priority Date/Time Associated Diagnosis Comments SST - GOLD Routine 03/18/2025 8:16 AM EDT Other dietary vitamin B12 deficiency anemia Anemia, unspecified SST - GOLD Routine 03/18/2025 8:16 AM EDT Other dietary vitamin B12 deficiency anemia Anemia, unspecified SST - GOLD Routine 03/18/2025 8:16 AM EDT Other dietary vitamin B12 deficiency anemia Anemia, unspecified SJOGRENS ANTIBODIES, SSA AND SSB Routine 03/18/2025 8:16 AM EDT Other dietary vitamin B12 deficiency anemia Anemia, unspecified CYCLIC CITRULLINATED PEPTIDE, IGG AND IGA Routine 03/18/2025 8:16 AM EDT Other dietary vitamin B12 deficiency anemia Anemia, unspecified ROGER IFA WITH TITER AND PATTERN Routine 03/18/2025 8:16 AM EDT Other dietary vitamin B12 deficiency anemia Anemia, unspecified IRON AND TIBC Routine 03/18/2025 8:16 AM EDT Other dietary vitamin B12 deficiency anemia Anemia, unspecified ANTI-SCLERODERMA ANTIBODY Routine 03/18/2025 8:16 AM EDT Other dietary vitamin B12 deficiency anemia Anemia, unspecified RHEUMATOID FACTOR Routine 03/18/2025 8:1 6 AM EDT Other dietary vitamin B12 deficiency anemia Anemia, unspecified FOLATE Routine 03/18/2025 8:16 AM EDT Other dietary vitamin B12 deficiency anemia Anemia, unspecified FERRITIN Routine 03/18/2025 8:16 AM EDT Other dietary vitamin B12 deficiency anemia Anemia, unspecified VITAMIN B12 Routine 03/18/2025 8:16 AM EDT Other dietary vitamin B12 deficiency anemia Anemia, unspecified documented in this encounter Results * SST tube (03/18/2025 8:16 AM EDT) Extra Tube Hold for add-ons. 03/18/2025 11:01 AM EDT [facility] Comment:Auto resulted. Blood Venous blood specimen / Unknown Venipuncture / Unknown 03/18/2025 8:16 AM EDT 03/18/2025 9:07 AM EDT us Homar Watson MD LAB BLOOD ORDERABLES Final R esult [facility] [address] [place] [address], * SST tube (03/18/2025 8:16 AM EDT) Extra Tube Hold for add-ons. 03/18/2025 11:01 AM EDT [facility] Comment:Auto resulted. Blood Venous blood specimen / Unknown Venipuncture / Unknown 03/18/2025 8:16 AM EDT 03/18/2025 9:07 AM EDT Homar Watson MD LAB BLOOD ORDERABLES Final R esult Performing Organization Address City/[facility]/ZIP Co de Phone Number [facility] [address] [place] [address], [place] [phone] * SST tube (03/18/2025 8:16 AM EDT) Pathologist [facility] Extra Tube Hold for add-ons. 03/18/2025 11:01 AM EDT [facility] Comment:Auto resulted. Blood Venous blood specimen / Unknown Venipuncture / Unknown 03/18/2025 8:16 AM EDT 03/18/2025 9:07 AM EDT Homar Watson MD LAB BLOOD ORDERABLES Final R esult Performing Organization Address [facility] Co de Phone Number [facility] [address] [place] [address], [place] [phone] * Rheumatoid factor (03/18/2025 8:16 AM EDT) Rheumatoid Factor <10.0 <15.0 I Unit/mL LAB CHEMISTRY METHOD 03/18/2025 10:46 AM EDT [facility] Blood Venous blood specimen / Unknown Venipuncture / Unknown 03/18/2025 8:16 AM EDT 03/18/2025 9:07 AM EDT us Homar Watson MD LAB BLOOD ORDERABLES Final R esult Performing Organization Address City/[facility]/ZIP Co de Phone Number [facility] [address] [place] [address], [place] [phone] * Anti-scleroderma antibody (03/18/2025 8:16 AM EDT) Scleroderma SCL - 70 Negative Negative LAB CHEMISTRY METHOD 03/22/2025 1:11 PM EDT [facility] Blood Venous blood specimen / Unknown Venipuncture / Unknown 03/18/2025 8:16 AM EDT 03/18/2025 9:07 AM EDT Homar Watson MD LAB BLOOD ORDERABLES Final R esult Performing Organization Address [facility]/ZIP Co de Phone Number [facility] [address] [place] [address], * Sjogrens antibodies, SSA and SSB (03/18/2025 8:16 AM EDT) Sjogren's SS-A (Ro) Ab Quant 1 <20 units LAB CHEMISTRY METHOD 03/22/2025 1:11 PM EDT [facility] Sjogren's SS-A (Ro) Ab Negative Negative LAB CHEMISTRY METHOD 03/22/2025 1:11 PM EDT [facility] Sjogren's SS-B (La) Ab Quant 3 <20 units LAB CHEMISTRY METHOD 03/22/2025 1:11 PM EDT [facility] Sjogren's SS-B (La) Ab Negative Negative LAB CHEMISTRY METHOD 03/22/2025 1:11 PM EDT [facility] Blood Venous blood specimen / Unknown Venipuncture / Unknown 03/18/2025 8:16 AM EDT 03/18/2025 9:07 AM EDT Homar Watson MD LAB BLOOD ORDERABLES Final R esult Performing Organization Address City/[facility]/ZIP Co de Phone Number [facility] [address] [place] [address], * Cyclic citrullinated peptide, IgG and IgA (03/18/2025 8:16 AM EDT) [facility] CCP AB Quant 7 <20 Units LAB CHEMISTRY METHOD 03/25/2025 10:29 AM EDT [facility] Cyclic Citrullinated Peptide (CCP) Antibody Negative Negative LAB CHEMISTRY METHOD 03/25/2025 10:29 AM EDT [facility] Blood Venous blood specimen / Unknown Venipuncture / Unknown 03/18/2025 8:16 AM EDT 03/18/2025 9:07 AM EDT us Homar Watson MD LAB BLOOD ORDERABLES Final R esult Performing Organization Address City/[facility]/ZIP Co de Phone Number [facility] [address] [place] [address], [place] [phone] * ROGER IFA with titer and pattern (03/18/2025 8:16 AM EDT) [facility] ROGER Negative Negative 03/19/2025 10:12 AM EDT [facility] Blood Venous blood specimen / Unknown Venipuncture / Unknown 03/18/2025 8:16 AM EDT 03/18/2025 9:07 AM EDT Homar Watson MD LAB BLOOD ORDERABLES Final R esult [facility] [address] [place] [address], [place] [phone] * Vitamin B12 (03/18/2025 8:16 AM EDT) [facility] Vitamin B-12 772 250 - 900 pcg/mL LAB CHEMISTRY METHOD 03/18/2025 11:08 AM EDT [facility] Blood Venous blood specimen / Unknown Venipuncture / Unknown 03/18/2025 8:16 AM EDT 03/18/2025 9:07 AM EDT Homar Watson MD LAB BLOOD ORDERABLES Final R esult Performing Organization Address City/[facility]/ZIP Co de Phone Number [facility] [address] [place] [address], [place] [phone] * Folate (03/18/2025 8:16 AM EDT) Folate 9.6 2.8 - 17.0 ng/ml LAB CHEMISTRY METHOD 03/18/2025 11:08 AM EDT [facility] Blood Venous blood specimen / Unknown Venipuncture / Unknown 03/18/2025 8:16 AM EDT 03/18/2025 9:07 AM EDT Homar Watson MD LAB BLOOD ORDERABLES Final R esult Performing Organization Address [facility] Co de Phone Number [facility] [address] [place] [address], [place] [phone] * Iron and TIBC (03/18/2025 8:16 AM EDT) [facility] Iron 66 50 - 160 mcg/dL LAB CHEMISTRY METHOD 03/18/2025 10:46 AM EDT [facility] TIBC 320 250 - 450 mcg/dL LAB CHEMISTRY METHOD 03/18/2025 10:46 AM EDT [facility] Iron Saturation 21 20 - 50 % LAB CHEMISTRY METHOD 03/18/2025 10:46 AM EDT [facility] Blood Venous blood specimen / Unknown Venipuncture / Unknown 03/18/2025 8:16 AM EDT 03/18/2025 9:07 AM EDT Homar Watson MD LAB BLOOD ORDERABLES Final R esult Performing Organization Address City/[facility]/ZIP Co de Phone Number [facility] [address] [place] [address], [place] [phone] * Ferritin (03/18/2025 8:16 AM EDT) Ferritin 156 26 - 388 ng/mL LAB CHEMISTRY METHOD 03/18/2025 11:08 AM EDT [facility] Blood Venous blood specimen / Unknown Venipuncture / Unknown 03/18/2025 8:16 AM EDT 03/18/2025 9:07 AM EDT Homar Watson MD LAB BLOOD ORDERABLES Final R esult [facility] [address] [place] [address], [place] [phone] documented in this encounter Visit Diagnoses Diagnosis Other dietary vitamin B12 deficiency anemia Anemia, unspecified documented in this encounter Care Teams Cane Weigher Relationship Specialty Start Date End Date Homar Watson MD [address] [place] [address] PCP - General Family Medicine 07/11/24 documented as of this encounter
--- OUTSIDE RECORDS SUMMARY | 2025-05-02 06:12 | XMS_ITS | Clinical Summary ---
Author Organization [address] [facility] Address [address] [place] [address] Phone Care Team Providers Care Dairy Hand Name Role Phone Homar Watson MD Primary Care Provider Encounters Date Type Department Care Team Description 04/22/2025 Lab Requisition [facility] [address] [place] [phone] Homar Watson MD Encounter for screening, unspecified; Encounter for other administrative examinations 03/19/2025 Lab Requisition [facility] [address] [place] [phone] Homar Watson MD Anemia, unspecified; Type 2 diabetes mellitus without complications ([facility] V24, [facility] V28) 03/18/2025 Lab Requisition [facility] [address] [place] [phone] Homar Watson MD Anemia, unspecified; Type 2 diabetes mellitus without complications ([facility] V24, [facility] V28) 03/18/2025 Lab Requisition [facility] [address] [place] [phone] Homar Watson MD Other dietary vitamin B12 deficiency anemia; Anemia, unspecified 03/13/2025 Lab Requisition [facility] [address] [place] [phone] Homar Watson MD Essential (primary) hypertension 02/17/2025 Lab Requisition [facility] [address] [place] [phone] Homar Watson MD Personal history of other diseases of the respiratory system; Anemia, unspecified from Last 3 Months Social History Tobacco Use Types Packs/Day Years Used Date Smoking Tobacco: Never Assessed Sex and Gender Information Value Date Recorded Sex Assigned at Not on file Legal Sex Male 3:40 PM EDT Gender Identity Not on file Sexual Orientation Not on file Plan of Treatment Health Maintenance Due Date Last Done Comments Diabetes: Annual Foot Exam 1955 Diabetes: Annual Retina Eye Exam 1955 DTaP,Tdap,and Td Vaccines (1 - Tdap) 1964 Hepatitis A Vaccines (1 of 2 - Risk 2-dose series) 1964 Pneumococcal Vaccine: 50+ Years (1 of 2 - PCV) 1964 Zoster Vaccines (1 of 2) 1995 RSV Immunization Adult Patients (1 - 1-dose 75+ series) 2020 Cholesterol Screening (Lipid Panel) 06/16/2024 Falls Risk Assessment 06/16/2024 Hepatitis C Screening 06/16/2024 Social Influencers of Health Screening 06/16/2024 Depression Screening 08/21/2024 Diabetes: Annual Urine Albumin-Creatinine Ratio (uACR) 03/18/2025 Diabetes: Blood Sugar Control Test (HGBA1C) 03/18/2025 COVID-19 Vaccine ( season) 2025 Influenza Vaccine (#1) 2025 Diabetes: Annual GFR (Glomerular Filtration Rate) 03/13/2026 03/13/2025, 02/17/2025, 10/15/2024, Additional history exists Hypertension/CHF/CAD Annual BMP Blood Test 03/13/2026 03/13/2025, 02/17/2025, 10/15/2024, Additional history exists HIB Vaccines Aged Out No longer eligi [...] patient's age to complete this topic Meningococcal B Vaccine Aged Out No l onger eligible based on patient's age to complete this topic RSV Immunization Patients Under 20 months Aged Out No longer eligible based on patient's age to complete this topic Varicella Vaccines Aged Out No longer eligible based on patient's age to complete this topic Procedures Procedure Name Priority Date/Time Associated Diagnosis Comments DRUG ABUSE SCREEN 8A PANEL, URINE Routine 04/21/2025 7:00 AM EDT Encounter for screening, unspecified Encounter for other administrative examinations SST - GOLD Routine 03/18/2025 8:16 AM [...] dietary vitamin B12 deficiency anemia Anemia, unspecified BASIC METABOLIC PANEL Routine 03/13/2025 5:59 AM EDT Essential (primary) hypertension COMPLETE BLOOD COUNT Routine 03/13/2025 5:59 AM EDT Essential (primary) hypertension BASIC METABOLIC PANEL Routine 02/17/2025 7:17 AM EDT Personal history of other diseases of the respiratory system Anemia, unspecified COMPLETE BLOOD COUNT Routine 02/17/2025 7:17 AM EDT Personal history of other diseases of the respiratory system Anemia, unspecified from Last 3 Months Results * Drug abuse screen 8a panel, urine (04/21/2025 7:00 AM EDT) [facility] Amphetamine Screen, Ur Negative Negative LAB CHEMISTRY METHOD 04/22/2025 1:[address] [facility] Comment:Certain OTC medicati ons containing ephedrine, phenylephrine, pseudoephedrine and phenylpropanolamine can cause false positive results. Barbiturate Screen, Ur Negative Negative LAB CHEMISTRY METHOD 04/22/2025 1:[address] [facility] Benzodiazepine Screen, Ur Negative Negative LAB CHEMISTRY METHOD 04/22/2025 1:[address] [facility] Cocaine Screen, Ur Negative Negative [facility] Opiate Screen, Ur Negative Negative LAB CHEMISTRY METHOD 04/22/2025 1:[address] [facility] Cannabinoid (THC) Screen, Ur Negative Negative LAB CHEMISTRY METHOD 04/22/2025 1:[address] [facility] Comment:Specimens from patie nts taking pantoprazole sodium (Protonix) have been shown to produce false positive results. Oxycodone Screen, Ur Negative Negative LAB CHEMISTRY METHOD 04/22/2025 1:[address] [facility] Fentanyl, Ur Negative Negative LAB CHEMISTRY METHOD 04/22/2025 1:[address] [facility] Urine Urine specimen from urethra / Unknown Non-blood Collection / Unknown 04/21/2025 7:00 AM EDT 04/22/2025 10:[address] [facility] - 04/22/2025 1:20 PM EDT Assay cutoffs: Amphetamines 1000 ng/mL Barbiturates 200 ng/mL Benzodiazepines 200 ng/mL Cocaine 300 ng/mL Fentanyl 1 ng/mL Opiates 300 ng/mL Oxycodone 100 ng/mL THC 50 ng/mL Semi-quantitative assay for screening purposes only. Unconfirmed screening result should not be used for non-medical purposes. *ALTERNATE METHOD CONFIRMATION DONE UPON REQUEST ONLY* Homar Watson MD LAB URINE ORDERABLES Final R esult Performing Organization Address City/[facility]/ZIP Co de Phone Number [facility] [address] [place] [address], [place] [phone] * SST tube (03/18/2025 8:16 AM EDT) Only the most recent of3 resultswithin the time period is included. Extra Tube Hold for add-ons. 03/18/2025 11:[address] [facility] Comment:Auto resulted. Blood Venous blood specimen / Unknown Venipuncture / Unknown 03/18/2025 8:16 AM EDT 03/18/2025 9:07 AM EDT Homar Watson MD LAB BLOOD ORDERABLES Final R esult Performing Organization Address City/[facility]/ZIP Co de Phone Number [facility] [address] [place] [address], [place] [phone] * Sjogrens antibodies, SSA and SSB (03/18/2025 8:16 AM EDT) Sjogren's SS-A (Ro) Ab Quant 1 <20 units LAB CHEMISTRY METHOD 03/22/2025 1:[address] [facility] Sjogren's SS-A (Ro) Ab Negative Negative LAB CHEMISTRY METHOD 03/22/2025 1:[address] [facility] Sjogren's SS-B (La) Ab Quant 3 <20 units LAB CHEMISTRY METHOD 03/22/2025 1:[address] [facility] Sjogren's SS-B (La) Ab Negative Negative LAB CHEMISTRY METHOD 03/22/2025 1:[address] [facility] Blood Venous blood specimen / Unknown Venipuncture / Unknown 03/18/2025 8:16 AM EDT 03/18/2025 9:07 AM EDT Homar Watson MD LAB BLOOD ORDERABLES Final R esult [facility] [address] [place] [address], * Cyclic citrullinated peptide, IgG and IgA (03/18/2025 8:16 AM EDT) CCP AB Quant 7 <20 Units LAB CHEMISTRY METHOD 03/25/2025 10:[address] [facility] Cyclic Citrullinated Peptide (CCP) Antibody Negative Negative LAB CHEMISTRY METHOD 03/25/2025 10:[address] [facility] Blood Venous blood specimen / Unknown Venipuncture / Unknown 03/18/2025 8:16 AM EDT 03/18/2025 9:07 AM EDT Homar Watson MD LAB BLOOD ORDERABLES Final R esult [facility] [address] [place] [address], [place] [phone] * ROGER IFA with titer and pattern (03/18/2025 8:16 AM EDT) [facility] ROGER Negative Negative 03/19/2025 10:[address] [facility] Blood Venous blood specimen / Unknown Venipuncture / Unknown 03/18/2025 8:16 AM EDT 03/18/2025 9:07 AM EDT Homar Watson MD LAB BLOOD ORDERABLES Final R esult [facility] [address] [place] [address], [place] [phone] * Iron and TIBC (03/18/2025 8:16 AM EDT) [facility] Iron 66 50 - 160 mcg/dL LAB CHEMISTRY METHOD 03/18/2025 10:[address] [facility] TIBC 320 250 - 450 mcg/dL LAB CHEMISTRY METHOD 03/18/2025 10:[address] [facility] Iron Saturation 21 20 - 50 % LAB CHEMISTRY METHOD 03/18/2025 10:[address] [facility] Blood Venous blood specimen / Unknown Venipuncture / Unknown 03/18/2025 8:16 AM EDT 03/18/2025 9:07 AM EDT Homar Watson MD LAB BLOOD ORDERABLES Final R esult [facility] [address] [place] [address], [place] [phone] * Anti-scleroderma antibody (03/18/2025 8:16 AM EDT) [facility] Scleroderma SCL - 70 Negative Negative LAB CHEMISTRY METHOD 03/22/2025 1:[address] [facility] Blood Venous blood specimen / Unknown Venipuncture / Unknown 03/18/2025 8:16 AM EDT 03/18/2025 9:07 AM EDT Homar Watson MD LAB BLOOD ORDERABLES Final R esult Performing Organization Address City/[facility]/ZIP Co de Phone Number [facility] [address] [place] [address], [place] [phone] * Rheumatoid factor (03/18/2025 8:16 AM EDT) Pathologist [facility] Rheumatoid Factor <10.0 <15.0 I Unit/mL LAB CHEMISTRY METHOD 03/18/2025 10:[address] [facility] Blood Venous blood specimen / Unknown Venipuncture / Unknown 03/18/2025 8:16 AM EDT 03/18/2025 9:07 AM EDT Homar Watson MD LAB BLOOD ORDERABLES Final R esult Performing Organization Address [facility]/ZIP Co de Phone Number [facility] [address] [place] [address], [place] [phone] * Folate (03/18/2025 8:16 AM EDT) Pathologist [facility] Folate 9.6 2.8 - 17.0 ng/ml LAB CHEMISTRY METHOD 03/18/2025 11:[address] [facility] Blood Venous blood specimen / Unknown Venipuncture / Unknown 03/18/2025 8:16 AM EDT 03/18/2025 9:07 AM EDT us Homar Watson MD LAB BLOOD ORDERABLES Final R esult Performing Organization Address City/[facility]/ZIP Co de Phone Number [facility] [address] [place] [address], [place] [phone] * Ferritin (03/18/2025 8:16 AM EDT) Ferritin 156 26 - 388 ng/mL LAB CHEMISTRY METHOD 03/18/2025 11:[address] [facility] Blood Venous blood specimen / Unknown Venipuncture / Unknown 03/18/2025 8:16 AM EDT 03/18/2025 9:07 AM EDT Homar Watson MD LAB BLOOD ORDERABLES Final R esult [facility] [address] [place] [address], [place] [phone] * Vitamin B12 (03/18/2025 8:16 AM EDT) Pathologist [facility] Vitamin B-12 772 250 - 900 pcg/mL LAB CHEMISTRY METHOD 03/18/2025 11:[address] [facility] Blood Venous blood specimen / Unknown Venipuncture / Unknown 03/18/2025 8:16 AM EDT 03/18/2025 9:07 AM EDT Homar Watson MD LAB BLOOD ORDERABLES Final R esult [facility] [address] [place] [address], [place] [phone] * (ABNORMAL) Complete blood count (03/13/2025 5:59 AM EDT) Only the most recent of2 resultswithin the time period is included. WBC 6.9 4.8 - 10.8 K/mcL LAB HEMETOLOGY METHOD 03/13/2025 10:[address] [facility] RBC 3.90(L) 4.50 - 5.50 M/mcL LAB HEMETOLOGY METHOD 03/13/2025 10:[address] [facility] Hemoglobin 13.0(L) 13.5 - 17.5 g/dL LAB HEMETOLOGY METHOD 03/13/2025 10:[address] [facility] Hematocrit 41.6(L) 42.0 - 54.0 % LAB HEMETOLOGY METHOD 03/13/2025 10:[address] [facility] MCV 106.1(H) 79.0 - 98.0 FL LAB HEMETOLOGY METHOD 03/13/2025 10:[address] [facility] MCH 33.2(H) 27.0 - 32.0 pcg LAB HEMETOLOGY METHOD 03/13/2025 10:[address] [facility] MCHC 31.3(L) 32.0 - 37.0 g/dL LAB HEMETOLOGY METHOD 03/13/2025 10:[address] [facility] RDW 14.3 11.0 - 15.0 % LAB HEMETOLOGY METHOD 03/13/2025 10:[address] [facility] Platelets 191 130 - 400 K/mcL LAB HEMETOLOGY METHOD 03/13/2025 10:[address] [facility] MPV 12.4(H) 7.0 - 11.0 FL LAB HEMETOLOGY METHOD 03/13/2025 10:[address] [facility] NRBC 0.0 <1.0 % LAB HEMETOLOGY METHOD 03/13/2025 10:[address] [facility] NRBC Absolute 0.00 <0.10 K/mcL LAB HEMETOLOGY METHOD 03/13/2025 10:[address] [facility] Blood Venous blood specimen / Unknown Venipuncture / Unknown 03/13/2025 5:59 AM EDT 03/13/2025 10:16 AM EDT us Homar Watson MD LAB BLOOD ORDERABLES Final R esult [facility] [address] [place] [address], * (ABNORMAL) Basic metabolic panel (03/13/2025 5:59 AM EDT) Only the most recent of2 resultswithin the time period is included. Sodium 138 133 - 145 mmol/L LAB CHEMISTRY METHOD 03/13/2025 11:[address] [facility] Potassium 4.1 3.5 - 5.5 mmol/L LAB CHEMISTRY METHOD 03/13/2025 11:[address] [facility] Chloride 99 96 - 110 mmol/L LAB CHEMISTRY METHOD 03/13/2025 11:[address] [facility] CO2 34(H) 21 - 32 mmol/L LAB CHEMISTRY METHOD 03/13/2025 11:[address] [facility] Anion Gap 5 3 - 11 LAB CHEMISTRY METHOD 03/13/2025 11:[address] [facility] Glucose 135(H) 70 - 100 mg/dL LAB CHEMISTRY METHOD 03/13/2025 11:[address] [facility] BUN 19 5 - 25 mg/dL LAB CHEMISTRY METHOD 03/13/2025 11:[address] [facility] Creatinine 1.17 0.70 - 1.30 mg/dL LAB CHEMISTRY METHOD 03/13/2025 11:[address] [facility] eGFR 63 >=60 mL/min/1. 73m2 LAB CHEMISTRY METHOD 03/13/2025 11:[address] [facility] Comment:Calculation based on the Chronic Kidney Disease Epidemiology Collaboration (CKD-EPI) equation refit without adjustment for race. BUN/Creatinine Ratio 16.2 LAB CHEMISTRY METHOD 03/13/2025 11:[address] [facility] Calcium 9.1 8.5 - 10.5 mg/dL LAB CHEMISTRY METHOD 03/13/2025 11:[address] [facility] Blood Venous blood specimen / Unknown Venipuncture / Unknown 03/13/2025 5:59 AM EDT 03/13/2025 10:16 AM EDT Homar Watson MD LAB BLOOD ORDERABLES Final R esult [facility] [address] [place] [address], from Last 3 Months Insurance MEDICAID - [place] Care Teams Dairy Hand Relationship Specialty Start Date End Date Homar Watson MD [address] [place] [address] PCP - General Family Medicine 07/11/24
--- OUTSIDE RECORDS SUMMARY | 2025-05-02 06:12 | XMS_ITS | Encounter Summary ---
Author Organization [employer] Address [address] [place] [address] Care Team Providers Care Inside Channel Account Manager Name Role Phone Homar Watson MD Primary Care Provider [phone] Encounter Details Date Type Department Care Team (Late st Contact Info) Description 10/12/2024 Lab Requisition [facility] [address] [facility] [place] [address] Homar Watson MD [address] [place] [address] Acute sinusitis, unspecified Social History Tobacco Use Types Packs/Day [...] Procedure Name Priority Date/Time Associated Diagnosis Comments CULTURE SPUTUM Routine 10/11/2024 7:30 PM EST Acute sinusitis, unspecified documented in this encounter Results * (ABNORMAL) Culture sputum (10/11/2024 7:30 PM EST) Culture, Sputum No pathogens isolated. 10/15/2024 8:43 AM [facility] Gram Stain Result >25 WBCs, 10-25 Epithelials - Acceptable for Culture(A) 10/15/2024 8:43 AM EST [facility] Gram Stain Result Many Polymorphonuclear leukocytes(A) 10/15/2024 8:43 AM [facility] Gram Stain Result Rare Epithelial cells(A) 10/15/2024 8:43 AM [facility] Gram Stain Result Moderate Gram positive cocci in pairs(A) 10/15/2024 8:43 AM EST [facility] Sputum, expectorated Lung structure / Unknown Non-blood Collection / Unknown 10/11/2024 7:30 PM EST 10/12/2024 10:30 AM EST us Homar Watson MD LAB MICROBIOLOGY - GENERAL O RDERABLES Final Result [facility] [address] [place] [address], documented in this encounter Visit Diagnoses Diagnosis Acute sinusitis, unspecified documented in this encounter Care Teams Inside Channel Account Manager Relationship Specialty Start Date End Date Homar Watson MD [address] [place] [address] PCP - General Family Medicine 07/11/24 documented as of this encounter
--- OUTSIDE RECORDS SUMMARY | 2025-05-02 06:12 | XMS_ITS ---
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 Name Role Phone [place] Unavailable Unavailable Homar Watson Unavailable Unavailable Homar Patel Unavailable Unavailable Vandana Keita Unavailable Unavailable Minerva Montano Unavailable Angelina vailable Allergies and adverse reactions Code CodeSystem Substance Reaction Severity StartDate Concern Status [id number] SNOMED CT Penicillins Unknown 02/21/2024 activ e Care Team Name Role Address Phone Organization Dates Homar Patel PCP [address] [place] [address], [id number], [place] (Office): : [facility] 02/27/2024 - present Irma Beach [address] [place] [address], [address], [place] (Office): : [facility] 02/27/2024 - present Homar Watson [address], [address], [place] (Office): : [facility] 02/27/2024 - present Vandana Keita [facility], [place], [address], [place] (Fax): [facility] 02/27/2024 - present Minerva Montano [address] [place], [place], [phone], [facility] (Office): : [facility] 02/27/2024 - present Encounters EncounterType Code CodeSystem Description Performer ServiceDe liveryLocation Date Ambulatory Encounter CPT Code = [address] Disorder of nervous system due to type 2 diabetes mellitus [id number] [facility] Address: [address] [place] [address], [address] [place] [address]. 02/26 Ambulatory Encounter CPT Code = [address] Acute exacerbation of chronic obstructive pulmonary disease [id number] [facility] Address: [address] [place] [address], [address] [place] [address]. 02/26 Ambulatory Encounter CPT Code = [address] Bronchitis [id number] [facility] Address: [address] [place] [address], [address] [place] [address], [facility]. 02/26 Ambulatory Encounter CPT Code = [address] Hypertensive heart and chronic kidney disease [id number] [facility] Address: [address] [place] [address], [address] [place] [address]. 02/26 Ambulatory Encounter CPT Code = [address] Chronic cough [id number] [facility] Address: [address] [place] [address], [address] [place] [address], [facility]. 02/26 Ambulatory Encounter CPT Code = [address]38 [address] Chronic kidney disease [id number] [facility] Address: [address] [place] [address], [address] [place] [address]. 02/26 Ambulatory Encounter CPT Code = [address] Spondylosis [id number] [facility] Address: [address] [place] [address], [address] [place] [address]. 02/26 Ambulatory Encounter CPT Code = [address] Pain [id number] [facility] Address: [address] [place] [address], [address] [place] [address]. 02/26 Ambulatory Encounter CPT Code = [address] Nicotine dependence [id number] [facility] Address: [address] [place] [address], [address] [place] [address]. 02/26 Ambulatory Encounter CPT Code = [address] Cough [id number] [facility] Address: [address] [place] [address], [address] [place] [address]. 02/26 Ambulatory Encounter CPT Code = [address] Disorder of skin and/or subcutaneous tissue [id number] [facility] Address: [address] [place] [address], [address] [place] [address]. 02/26 Ambulatory Encounter CPT Code = [address] Muscle pain [id number] [facility] Address: [address] [place] [address], [address] [place] [address], [facility]. 02/26 Ambulatory Encounter CPT Code = [address] Adjustment disorder with anxious mood [id number] [facility] Address: [address] [place] [address], [address] [place] [address]. 02/26 Ambulatory Encounter CPT Code = [address] Combined form of senile cataract [id number] [facility] Address: [address] [place] [address], [address] [place] [address], [facility]. 02/26 Ambulatory Encounter CPT Code = [address] Presbyopia [id number] [facility] Address: [address] [place] [address], [address] [place] [address]. 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 02/26 Ambulatory Encounter CPT Code = [address] Dystrophia unguium [id number] [facility] Address: [address] [place] [address], [address] [place] [address]. 02/26 Ambulatory Encounter CPT Code = [address] Onychomycosis due to dermatophyte [id number] [facility] Address: [address] [place] [address], [address] [place] [address]. 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 02/26 Ambulatory Encounter CPT Code = [address] Adjustment disorder [id number] [facility] Address: [address] [place] [address], [address] [place] [address]. 02/26 Ambulatory Encounter CPT Code = 43654 [address] Congestive heart failure [id number] [facility] Address: [address] [place] [address], [address] [place] [address]. 02/26 Ambulatory Encounter CPT Code = [address] Atrial flutter [id number] [facility] Address: [address] [place] [address], [address] [place] [address]. 02/26 Ambulatory Encounter CPT Code = [address] Hypertensive heart failure [id number] [facility] Address: [address] [place] [address], [address] [place] [address], [facility]. 02/26 Ambulatory Encounter CPT Code = [address] Benign prostatic hyperplasia [id number] [facility] Address: [address] [place] [address], [address] [place] [address]. 02/26 Ambulatory Encounter CPT Code = 42882 1400[address] Muscle weakness [id number] [facility] Address: [address] [place] [address], [id number], [facility]. 02/26 Ambulatory Encounter CPT Code = [address] Sick sinus syndrome [id number] [facility] Address: [address] [place] [address], [address] [place] [address], [facility]. 02/26 Ambulatory Encounter CPT Code = [address] Abnormal gait [id number] [facility] Address: [address] [place] [address], [phone], [facility]. 02/26 Ambulatory Encounter CPT Code = [address] Chronic kidney disease due to type 2 diabetes mellitus [id number] [facility] Address: [address] [place] [address], [address] [place] [address]. 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 02/26 Ambulatory Encounter CPT Code = 54054 9913517 4501192 [address] Bilateral localized swelling of lower limbs [id number] [facility] Address: [address] [place] [address], [address] [place] [address], [facility]. 02/26 Ambulatory Encounter CPT Code = [address] Constipation [id number] [facility] Address: [address] [place] [address], [phone], [facility]. 02/26 Ambulatory Encounter CPT Code = [address]131 [address] Localized edema [id number] [facility] Address: [address] [place] [address], [address] [place] [address], [facility]. 02/26 Ambulatory Encounter CPT Code = 71081 [address]12[address] Long-term current use of anticoagulant [id number] [facility] Address: [address] [place] [address], [address] [place] [address]. 02/26 Ambulatory Encounter CPT Code = [address] Type 2 diabetes mellitus without complication [id number] [facility] Address: [address] [place] [address], [address] [place] [address]. 02/26 Ambulatory Encounter CPT Code = [address] Asteatosis cutis [id number] [facility] Address: [address] [place] [address], [address] [place] [address]. 02/26 Ambulatory Encounter CPT Code = [address]409 [address] Typical atrial flutter [id number] [facility] Address: [address] [place] [address], [address] [place] [address]. 02/26 Ambulatory Encounter CPT Code = [address] Gout [id number] [facility] Address: [address] [place] [address], [address] [place] [address]. 02/26 Ambulatory Encounter CPT Code = [address] Primary gout [id number] [facility] Address: [address] [place] [address], [address] [place] [address]. 02/26 Ambulatory Encounter CPT Code = [address]503 [address] Long-term current use of drug therapy [id number] [facility] Address: [address] [place] [address], [address] [place] [address]. 02/26 Ambulatory Encounter CPT Code = 67092 3725006 23978[address] Long-term current use of aspirin [id number] [facility] Address: [address] [place] [address], [address] [place] [address]. 02/26 Ambulatory Encounter CPT Code = [address] Hypokalemia [id number] [facility] Address: [address] [place] [address], [address] [place] [address]. 02/26 Ambulatory Encounter CPT Code = 73051 [address]69[address] Congestive heart failure [id number] [facility] Address: [address] [place] [address], [address] [place] [address], [facility]. 02/26 Ambulatory Encounter CPT Code = [address] Urinary tract infectious disease [id number] [facility] Address: [address] [place] [address], [address] [place] [address], [facility]. 02/26 Ambulatory Encounter CPT Code = [address]18 [address] Subsequent non-ST segment elevation myocardial infarction [id number] [facility] Address: [address] [place] [address], [address] [place] [address], [facility]. 02/26 Ambulatory Encounter CPT Code = [address] Angina pectoris [id number] [facility] Address: [address] [place] [address], [address] [place] [address], [facility]. 02/26 Ambulatory Encounter CPT Code = [address] Old myocardial infarction [id number] [facility] Address: [address] [place] [address], [address] [place] [address], [facility]. 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 02/26 Ambulatory Encounter CPT Code = [address]19 [address] Hyperlipidemia [id number] [facility] Address: [address] [place] [address], [address] [place] [address], [facility]. 02/26 Ambulatory Encounter CPT Code = [address] Low blood pressure [id number] [facility] Address: [address] [place] [address], [address] [place] [address], [facility]. 02/26 Ambulatory Encounter CPT Code = [address] Neck pain [id number] [facility] Address: [address] [place] [address], [address] [place] [address], [facility]. 02/26 Ambulatory Encounter CPT Code = [address] Lumbago with sciatica [id number] [facility] Address: [address] [place] [address], [address] [place] [address], [facility]. 02/26 Ambulatory Encounter CPT Code = [address]84 [address] Kyphosis of thoracic spine [id number] [facility] Address: [address] [place] [address], [address] [place] [address], [facility]. 02/26 Ambulatory Encounter CPT Code = [address] Thiamine deficiency [id number] [facility] Address: [address] [place] [address], [address] [place] [address], [facility]. 02/26 Ambulatory Encounter CPT Code = [address] Retention of urine [id number] [facility] Address: [address] [place] [address], [address] [place] [address]. 02/26 Ambulatory Encounter CPT Code = [address] Essential hypertension [id number] [facility] Address: [address] [place] [address], [address] [place] [address], [facility]. 02/26 Ambulatory Encounter CPT Code = [address] Obesity [id number] [facility] Address: [address] [place] [address], [address] [place] [address], [facility]. 02/26 Ambulatory Encounter CPT Code = 81443 [address] Peripheral vascular disease [id number] [facility] Address: [address] [place] [address], [address] [place] [address], [facility]. 02/26 Ambulatory Encounter CPT Code = [address] Vitamin D deficiency [id number] [facility] Address: [address] [place] [address], [address] [place] [address], [facility]. 02/26 Ambulatory Encounter CPT Code = [address] Fall [id number] [facility] Address: [address] [place] [address], [address] [place] [address]. 02/26 Ambulatory Encounter CPT Code = [address] Body mass index 30+ - obesity [id number] [facility] Address: [address] [place] [address], [address] [place] [address], [facility]. 02/26 Ambulatory Encounter CPT Code = [address] Anemia [id number] [facility] Address: [address] [place] [address], [address] [place] [address], [facility]. 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 02/26 Ambulatory Encounter CPT Code = [address]953 [address] Anemia in chronic kidney disease [id number] [facility] Address: [address] [place] [address], [address] [place] [address]. 02/26 Ambulatory Encounter CPT Code = 72843 9332475 [address] Need for personal care assistance [id number] [facility] Address: [address] [place] [address], [address] [place] [address], [facility]. 02/26 Ambulatory Encounter CPT Code = [address] Dyspnea [id number] [facility] Address: [address] [place] [address], [address] [place] [address], [facility]. 02/26 Ambulatory Encounter CPT Code = [address] Chest pain [id number] [facility] Address: [address] [place] [address], [address] [place] [address], [facility]. 02/26 Ambulatory Encounter CPT Code = [address]353 [address]102136 [address] Benign prostatic hyperplasia with outflow obstruction [id number] [facility] Address: [address] [place] [address], [address] [place] [address]. 02/26 Ambulatory Encounter CPT Code = 15[address] Aortocoronary bypass graft present [id number] [facility] Address: [address] [place] [address], [address] [place] [address]. 02/26 Ambulatory Encounter CPT Code = [address] Chronic obstructive pulmonary disease [id number] [facility] Address: [address] [place] [address], [address] [place] [address]. 02/26 Ambulatory Encounter CPT Code = 87989 5693875 [address]4554[address] Atherosclerosi s of coronary artery without angina pectoris [id number] [facility] Address: [address] [place] [address], [address] [place] [address]. 02/26 Ambulatory Encounter CPT Code = [address] Atrial fibrillation [id number] [facility] Address: [address] [place] [address], [address] [place] [address]. 02/26 Ambulatory Encounter CPT Code = 97725 [address]01264 [address] Chronic kidney disease stage 3 [id number] [facility] Address: [address] [place] [address], [address] [place] [address]. 02/26 Ambulatory Encounter CPT Code = [address] Primary gout [id number] [facility] Address: [address] [place] [address], [address] [place] [address], [facility]. 02/26 Ambulatory Encounter CPT Code = [address] Complete atrioventricul ar block [id number] [facility] Address: [address] [place] [address], [address] [place] [address], [facility]. 02/26 Ambulatory Encounter CPT Code = [address] Osteoarthritis [id number] [facility] Address: [address] [place] [address], [address] [place] [address], [facility]. 02/26 Ambulatory Encounter CPT Code = [address] Urinary tract obstruction [id number] [facility] Address: [address] [place] [address], [address] [place] [address]. 02/26 Ambulatory Encounter CPT Code = [address] Congenital malformation of the respiratory system [id number] [facility] Address: [address] [place] [address], [address], [facility]. 02/26 Ambulatory Encounter CPT Code = [address] Recurrent pneumonia [id number] [facility] Address: [address] [place] [address], [address], [facility]. 02/26 Ambulatory Encounter CPT Code = [address] Implantation procedure [id number] [facility] Address: [address] [place] [address], [address], [facility]. 02/26 Goals Section Goals Description Status Target Date I understand the risk and be nefits of receiving the COVID vaccine and understand if I change my mind I may receive it in the future (as available). Active 08/06/2025 I will accept care with no m ore than 3 attempts through the next review. Active 08/06/2025 I will be able to discuss op enly with the facility oncology social work any feelings or coping impairments I may be having related to my chronic medical condition, it's treatments and any impact on my psychosocial wellbeing through my next review. Active 025 I will be able to make basic needs known on a daily basis. Resident is usually able to make his needs known and usually understands through the review date. Active 08/06/2025 I will be clean, well groome d, and will be dressed to maintain my dignity through next review. All my ADLs will be met on a daily bases, with resident doing as much as possible for self within limits of my medical condition. Active 08/06/2025 I will be free from complica tions of cardiac problems through the review date. Active 08/06/2025 I will be free from discomfo rt or adverse reactions related to anticoagulant use through the review date. Active 08/06/2025 I will be free of distress o r dissatisfaction related to my placement on the program unit x90 days Active 08/06/2025 I will be free of symptoms o f dehydration and maintain moist mucous membranes, good skin turgor. Active 08/06/2025 I will be maintained on the lowest, most effective dose of psychotropic medication through my next review. Active 08/06/2025 I will be redirected with mi nimal verbal cues if exhibiting socially inappropriate behavior towards others and will vent feeling in a non-confrontational manner through the next review. Active 08/06/2025 I will choose and pursue my own leisure activities of interest daily until next review. Active 08/06/2025 I will comply with mouth care at least daily thr ough review date. Active 08/06/2025 I will have no adverse side effects of psychotropic medication use through my next review. Active 08/06/2025 I will have no complications related to SOB though the review date. Active 08/06/2025 I will have no complications related to diabetes through the review date. Active 08/06/2025 I will have no ill effect on my refusals of care through next review date. Active 08/06/2025 I will have no ill effects r elated to my choices through my next review. Active 08/06/2025 I will have no indications o f acute eye problems through the review date. Active 08/06/2025 I will have no indications o f psychosocial well being problem by/through review date. Active 08/06/2025 I will have no signs of or w orsening symptoms of congestive heart failure through next review. Active 08/06/2025 I will maintain adequate nut ritional status as evidenced by maintaining weight within 5% of 225, no s/sx of malnutrition/dhd, and consuming at least 50% of at least 3 meals daily through review date. Active 08/06/2025 I will not be in violation o f my conditions of probation and will continue to exercise my rights t o self-determination until next review. Active 08/06/2025 I will not be misidentified. Active I will not develop any signs or symptoms of pneumonia through my next review. Active 08/06/2025 I will not develop any signs or symptoms of the flu through my next review Active 08/06/2025 I will not develop complicat ions related to obesity, including skin breakdown, ineffective breathing pattern, altered cardiac output, diabetes, impaired mobility through review date. Active 08/06/2025 I will not sustain serious injury through the re view date. Active 08/06/2025 I will remain asymptomatic through my next revie w. Active 08/06/2025 I will remain free from injury or harm x90 days Active 08/06/2025 I will remain satisfied with my choice of long t erm residency Active 08/06/2025 I will verbalize adequate re lief of pain or ability to cope with incompletely relieved pain through the review date. Active I will verbalize concerns/ i ssues to staff of choice through the next review. Active 08/06/2025 I will verbalize understandi ng of need to control verbally abusive behavior through the review date. Active 08/06/2025 My Advanced Directives Wishes Will Be Known Acti ve 08/06/2025 My comfort will be maintained through my next re view. Active 08/06/2025 My skin will remain intact through my next revie w. Active 08/06/2025 My skin will remain intact through my next revie w. Active 08/06/2025 Functional Status Code Name Recorded Time Value Entered By Chair/ofd-fj-ybgwy transfer 05/02/2025 Independent vacevedo Does the resident use a wheelchair and/or scooter? 05/02/2025 Yes (qualifier value) vacevedo Eating 05/02/2025 Independent vacevedo Indicate the type of wheelchair or scooter used 05/02/2025 Manual wheelchair (physical object) vacevedo Indicate the type of wheelchair or scooter used 04/14/2025 Independent rdziuba Lower body dressing 05/02/2025 Independent vacevedo Lying to sitting on side of bed 05/02/2025 Independent vacevedo Oral hygiene 05/02/2025 Independent vacevedo Personal hygiene 05/02/2025 Setup or clean-up assist ance vacevedo Picking up object 05/02/2025 Independent vacevedo Putting on/taking off footwear 05/02/2025 Independen t vacevedo Roll left and right 05/02/2025 Independent vacevedo Shower/bathe self 04/29/2025 Setup or clean-up lesvia merino pmiller Sit to lying 05/02/2025 Independent vacevedo Sit to stand 05/02/2025 Independent vacevedo Toilet transfer 05/02/2025 Independent vacevedo Toileting hygiene 05/02/2025 Independent vacevedo Upper body dressing 05/02/2025 Independent vacevedo Walk 10 feet 05/02/2025 Independent vacevedo Walk 150 feet 05/02/2025 Independent vacevedo Walking 10 feet on uneven surfaces 04/14/2025 Not assessed rdziuba Wheel 150 feet 04/14/2025 Independent rdziuba Wheel 50 feet with two turns 05/02/2025 Independent vacevedo Immunizations Immunization Status Vaccine Details Vaccine Code CodeSystem Date Notes Influenza cancelled Influenza, high-dose, split virus, quadrivalent, injectable, preservative free 197 CVX created date: 4 consent date: 4 FLU cancelled influenza virus vaccine, unspecified formulation 88 CVX created date: 4 consent date: 4 Resident refused flu vaccine this shift. patient objection TDAP cancelled tetanus toxoid, reduced diphtheria toxoid, and acellular pertussis vaccine, adsorbed 115 CVX created date: 4 consent date: 2 patient objection HepA cancelled hepatitis A vaccine, unspecified formulation 85 CVX created date: 4 consent date: 8 Refused series patient objection PneumoPCV cancelled created date: 4 consent date: 4 PneumoPPV cancelled pneumococcal polysaccharide vaccine, 23 valent 33 CVX created date: 4 consent date: 4 Resident refused [email or web address] vaccine this shift. patient objection PneumoPPV cancelled pneumococcal polysaccharide vaccine, 23 valent 33 CVX created date: 4 consent date: 2 patient objection RSV cancelled Respiratory syncytial virus (RSV), mRNA, injectable, preservative free 326 CVX created date: 4 consent date: 4 patient objection COVID-19 cancelled SARS-COV-2 (COVID-19) vaccine, mRNA, spike protein, LNP, preservative free, trino-sucrose, 30 mcg/0.3 mL dose 309 CVX created date: 4 consent date: 4 Educated by Judy Casanova LPN on 05/06/2024 COVID-19 cancelled SARS-COV-2 (COVID-19) vaccine, UNSPECIFIED 213 CVX created date: 4 consent date: 4 Resident refused covid vaccination this shift, patient objection COVID-19 completed SARS-COV-2 (COVID-19) vaccine, UNSPECIFIED 213 CVX created date: 4 administe red date: 1 COVID-19 completed SARS-COV-2 (COVID-19) vaccine, UNSPECIFIED 213 CVX created date: 4 administe red date: 1 COVID-19 completed SARS-COV-2 (COVID-19) vaccine, UNSPECIFIED 213 CVX created date: 4 administe red date: 1 HepB cancelled hepatitis B vaccine, unspecified formulation 45 CVX created date: 4 consent date: 8 Refused series patient objection [id number] COVID cancelled SARS-COV-2 (COVID-19) vaccine, mRNA, spike protein, LNP, preservative free, trino-sucrose, 30 mcg/0.3 mL dose 309 CVX created date: 5 consent date: 5 Educated by on 11/21/2024 Influenza cancelled Influenza, adjuvanted, inactivated, trivalent, injectable, preservative free 168 CVX created date: 5 consent date: 5 Educated by Radha Casanova LPN on 04/25/2025 COVID cancelled SARS-COV-2 (COVID-19) vaccine, mRNA, spike protein, LNP, preservative free, trino-sucrose, 30 mcg/0.3 mL dose 309 CVX created date: 5 consent date: 5 Educated by on 04/25/2025 Medications Section Medication Name Status Code CodeSystem Dose Route Frequency Admin Type Sig Text Start Date End Date Indication Tamsulosin HCl Cap 0.4 MG active 04954 9 RXNORM 1 alice t Oral one time a day Routin e Give 1 alice t orall y one time a day relat ed to Shruthi n prost atic hyper plasi a with lower urina ry tract symp (N40. 1) 2023 - - Insta-Gluco se Oral Gel 77.4 % active 00118 22 RXNORM 1 dose Oral as needed PRN Give 1 dose by mouth as neede d for hypog lycem ia relat ed to Type 2 diabe kya nicholas tus with diabe tic neuro dai , unsp (E11. 40) very 15 minut es as neede d.--> Insta -Gluc ose (with dextr in) 24 gram/ 31 gram oral gel BS LESS THAN 60 WITH S/S: (IF RESID ENT IS ABLE TO TAKE BY MOUTH ) GIVE ORAL GLUCO SE 1 TUBE BY MOUTH - RECHE CK & RE-TR EAT EVERY 15 MIN UNTIL GREAT ER THAN 100 BS 2023 - hypoglycemi a Albuterol Sulfate Inhal Aero 108 MCG/ACT (90MCG Base Equiv) active 97001 11 RXNORM 1 puff Inhala tion as needed PRN 1 puff inhal e orall y every 8 hours as neede d for Wheez ing relat ed to Chron ic obstr uctiv e pulmo nary disea se, unspe cifie d (J44. 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 91) 2023 - - Naloxone HCl Injection Solution 0.4 MG/ML active 71757 29 RXNORM 1 ml Intram uscula r as needed PRN Injec t 1 ml intra muscu larly as neede d for suspe cted opioi d overd ose may repea t in 2-3 minut es if no rever ger effec t is noted . Signs of overd ose may inclu de pinpo int pupil s, resp. depre ssion or diffi cult arous ing resid ent. Call 911-U joaquina RENDON 2023 - suspected opioid overdose Naloxone HCl Nasal Liquid 4 MG/0.1ML active 77640 59 RXNORM 1 spray in nostri l as needed PRN 1 spray in nostr il as neede d for suspe cted opioi d overd ose may repea t in 2-3 minut es if no rever ger effec t is noted . Signs of overd ose may inclu de pinpo int pupil s, resp. depre ssion or diffi cult arous ing resid ent. Call 911-U joaquina RENDON 2023 - suspected opioid overdose Acetaminoph en Tablet 325 MG active 34949 2 RXNORM 2 table t Oral as needed PRN Give 2 table t by mouth every 8 hours as neede d for gener al disco mfort /temp above 101 relat ed to UNSPE CIFIE D OSTEO ARTHR ITIS, UNSPE CIFIE D SITE (M19. 90) not to excee d 3gm/2 4hour s from all [facility] es 2023 - general discomfort/ temp above 101 GuaiFENesin ER Tablet Extended Release 12 Hour 600 MG active 35450 2 RXNORM 1 table t Oral every 12 hours Routin e Give 1 table t by mouth every 12 hours for COUGH ING relat ed to CHRON IC OBSTR UCTIV E PULMO NARY DISEA SE, UNSPE CIFIE D (J44. 9) 2023 - COUGHING EPINEPHrine Injection Solution Auto-inject or 0.3 MG/0.3ML active 62997 05 RXNORM 0.3 ml Intram uscula r as needed PRN Injec t 0.3 ml intra muscu larly as neede d for Anaph ylaxi s may repea t in 3-5 minut es for 2 doses 2023 - Anaphylaxis PreviDent 5000 Booster Plus Dental Paste 1.1 % active 86557 4 RXNORM 1 appli catio n Dental one time a day Routin e 1 appli catio n denta l one time a day for Denta l Care Resid ent able to compl ete on own with set up help. 2023 - Dental Care Optimal D3 Oral Capsule 1.25 MG (47183 UT) active 1 capsu le Oral one time a day Routin e Give 1 capsu le by mouth one time a day start ing on the and endin g on the every month relat ed to [facility] IN D DEFIC IENCY , UNSPE CIFIE D (E55. 9) 2023 - - Docusate Sodium Oral Capsule 100 MG active 48594 05 RXNORM 1 capsu le Oral as needed PRN Give 1 capsu le by mouth every 12 hours as neede d for const ipati on relat ed to CONST IPATI ON, UNSPE CIFIE D (K59. 00) 2023 - constipatio n Torsemide Oral Tablet 20 MG active 1 RXNORM 2 table t Oral one time a day Routin e Give 2 table t by mouth one time a day relat ed to UNSPE CIFIE D DIAST OLIC (NADIA ESTIV E) HEART FAILU RE (I50. 30) 2 tabs = TD 40mg 2023 - - Lidocaine External Patch 4 % active 03624 94 RXNORM n/a n/a Topica l one time a day Routin e Apply to to lower back topic ally one time a day relat ed to [facility] GO WITH SCIAT ICA, UNSPE CIFIE D SIDE (M54. 40) put on in am and remov ed 12 hours later and remov e per sched ule 2023 - - GlycoLax Powder active 42276 3 RXNORM 17 gram Oral as needed PRN Give 17 gram by mouth every 12 hours as neede d for const ipati on relat ed to CONST IPATI ON, UNSPE CIFIE D (K59. 00) mix with 4-6oz fluid of prefe rence unles s contr aindi cated 2023 - constipatio n Ipratropium -Albuterol Inhalation Solution 0.5-2.5 (3) MG/3ML active 10300 02 RXNORM 1 vial Inhala tion as needed PRN 1 vial inhal e orall y every 6 hours as neede d for Cough relat ed to SHORT NESS OF BREAT H (R06. 02);C HRONI C OBSTR UCTIV E PULMO NARY DISEA SE, UNSPE CIFIE D (J44. 9) For cough or wheez e AND 1 vial inhal e orall y three times a day for wheez ing/s ob for 5 Days 2024 - Cough 60403 02 RXNORM 1 vial Inhala tion three times a day Routin e 1 vial inhal e orall y every 6 hours as neede d for Cough relat ed to SHORT NESS OF BREAT H (R06. 02);C HRONI C OBSTR UCTIV E PULMO NARY DISEA SE, UNSPE CIFIE D (J44. 9) For cough or wheez e AND 1 vial inhal e orall y three times a day for wheez ing/s ob for 5 Days 10/30 wheezing/so b Allopurinol Oral Tablet 100 MG active 34295 9 RXNORM 2 table t Oral one time a day Routin e Give 2 table t by mouth one time a day relat ed to IDIOP ATHIC GOUT, RIGHT ANKLE AND FOOT (M10. 071) 2024 - - Gabapentin Oral Capsule 100 MG active 42023 0 RXNORM 2 capsu le Oral at bedtime Routin e Give 2 capsu le by mouth at bedti me relat ed to TYPE 2 DIABE KYA MELLI TUS WITH DIABE TIC NEURO DAI , UNSPE CIFIE D (E11. 40) 2024 - - Aspirin Tab Delayed Release 81 MG active 62788 6 RXNORM 1 table t Oral one time a day Routin e Give 1 table t orall y one time a day relat ed to Unspe cifie d atria l fibri llati on (I48. 91) 2024 - - Thiamine HCl Tab 100 MG active 43692 3 RXNORM 1 table t Oral one time a day Routin e Give 1 table t orall y one time a day relat ed to Kendy ine defic iency , unspe cifie d (E51. 9) 2024 - - Atorvastati n Calcium Tab 80 MG (Base Equivalent) active 11638 5 RXNORM 1 table t Oral one time a day Routin e Give 1 table t orall y one time a day relat ed to Hyper lipid emia, unspe cifie d (E78. 5) 2024 - - Potassium Chloride Tab ER 10 mEq active 90338 3 RXNORM 1 table t Oral one time a day Routin e Give 1 table t orall y one time a day relat ed to Hypok alemi a (E87. 6) 2024 - - Vitamin B12 Oral Tablet 500 MCG active 1 table t Oral one time a day Routin e Give 1 table t by mouth one time a day relat ed to Vitam in B12 defic iency anemi a, unspe cifie d (D51. 9) 2024 - - Iron Oral Tablet 325 (65 Fe) MG active 325 mg Oral in the morning Routin e Give 325 mg by mouth in the [facility] 2024 - anaemia Ascorbic Acid Tablet 500 MG active 01806 2 RXNORM 1 table t Oral one time a day Routin e Give 1 table t by mouth one time a day for immun e syste m suppo rt 2024 - immune system support Metoprolol Succinate ER Oral Tablet Extended Release 24 Hour 25 MG active 15219 7 RXNORM 0.5 table t Oral in the evening Routin e Give 0.5 table t by mouth in the [facility] relat ed to ESSEN TIAL (PRIM TAM) HYPER TENSI ON (I10) Hold for SBP <100 2024 - - oxyCODONE HCl Oral Tablet 5 [place] 17926 21 RXNORM 1 table t Oral as needed PRN Give 1 table t by mouth every 12 hours as neede d for Pain for 30 Days Re-ev aluat e in 30 days 04/13 Pain Arnuity Ellipta Inhalation Aerosol Powder Breath Activated 200 MCG/ACT active 10393 68 RXNORM 1 inhal ation Inhala tion one time a day Routin e 1 inhal ation inhal e orall y one time a day for ? ild 07/29/ 2025 - ? ild Flonase Allergy Relief Nasal Suspension 50 MCG/ACT active 54168 33 RXNORM 1 spray Nasal one time a day Routin e 1 spray in both nostr ils one time a day relat ed to SICK SINUS SYNDR OME (I49. 5) 2024 - - Singulair Oral Tablet Chewable 5 MG active 20576 3 RXNORM 1 table t Oral at bedtime Routin e Give 1 table t by mouth at bedti me relat ed to CHRON IC OBSTR UCTIV E PULMO NARY DISEA SE, UNSPE CIFIE D (J44. 9) 2024 - - Nitroglycer in Sublingual Tablet Sublingual 0.3 MG active 01643 8 RXNORM 1 table t Sublin gual one time only One Time Only Give 1 table t subli ngual ly one time only for chest pain until 05/02 23:59 05/03 chest pain Mental Status Section Date Assessment Total Score Description 04/27/2025 BIMS 15 cognitively int act CAM 0 No delirium ind icated PHQ-9 00 02/02/2025 BIMS 15 cognitively int act CAM 0 No delirium ind icated PHQ-9 00 Plan of Treatment Section Interventions Intervention Code Code System Display Name Proposed D ate Problems Problem # Description Date of onset Resolved Date Code CodeSystem Concern Status 1 CHRONIC OBSTRUCTIVE PULMONARY DISEASE WITH (ACUTE) EXACERBATION 10/31/[address] active 2 BRONCHITIS, NOT SPECIFIED ACUTE OR CHRONIC 10/29/[address] active 3 HYPERTENSIVE HEART AND CHRONIC KIDNEY DISEASE WITHOUT HEART FAILURE, WITH STAGE 1 THROUGH STAGE 4 CHRONIC KIDNEY DISEASE, OR UNSPECIFIED CHRONIC KIDNEY DISEASE 10/26/[address] active 4 CHRONIC COUGH 10/22/[address] active 5 CHRONIC KIDNEY DISEASE, UNSPECIFIED 10/22/[address] active 6 PAIN, UNSPECIFIED 10/01/[address] active 7 PERSONAL HISTORY OF NICOTINE DEPENDENCE 10/01/[address] active 8 SPONDYLOSIS, UNSPECIFIED 10/01/[address] active 9 COUGH, UNSPECIFIED 09/16/[address] active 10 MYALGIA, OTHER SITE 05/23/[address] active 11 PERSONAL HISTORY OF DISEASES OF THE SKIN AND SUBCUTANEOUS TISSUE 05/23/[address] active 12 ADJUSTMENT DISORDER WITH ANXIETY 03/25/[address] active 13 COMBINED FORMS OF AGE-RELATED CATARACT, BILATERAL 03/13/[address] active 14 PRESBYOPIA 03/13/[address] active 15 NAIL DYSTROPHY 03/11/[address] active 16 TINEA UNGUIUM 03/11/[address] active 17 TYPE 2 DIABETES MELLITUS WITH OTHER CIRCULATORY COMPLICATIONS 03/11/[address] active 18 UNSPECIFIED ATHEROSCLEROSIS OF [place] ARTERIES OF EXTREMITIES, BILATERAL LEGS 03/11/[address] active 19 ADJUSTMENT DISORDER, UNSPECIFIED 03/04/[address] active 20 BENIGN PROSTATIC HYPERPLASIA WITHOUT LOWER URINARY TRACT SYMPTOMS 02/29/[address] active 21 HYPERTENSIVE HEART DISEASE WITH HEART FAILURE 02/29/[address] active 22 MUSCLE WEAKNESS (GENERALIZED) 02/29/[address] active 23 SICK SINUS SYNDROME 02/29/[address] active 24 TYPE 2 DIABETES MELLITUS WITH DIABETIC CHRONIC KIDNEY DISEASE 02/29/[address] active 25 TYPE 2 DIABETES MELLITUS WITH DIABETIC PERIPHERAL ANGIOPATHY WITHOUT GANGRENE 02/29/[address] active 26 UNSPECIFIED ABNORMALITIES OF GAIT AND MOBILITY 02/29/[address] active 27 UNSPECIFIED ATRIAL FLUTTER 02/29/[address] active 28 UNSPECIFIED DIASTOLIC (CONGESTIVE) HEART FAILURE 02/29/[address] active 29 ANEMIA IN CHRONIC KIDNEY DISEASE 02/21/[address] active 30 ANEMIA, UNSPECIFIED 02/21/[address] active 31 ANGINA PECTORIS, UNSPECIFIED 02/21/[address] active 32 ATHEROSCLEROSIS OF CORONARY ARTERY BYPASS GRAFT(S) WITHOUT ANGINA PECTORIS 02/21/[address] active 33 ATHEROSCLEROTIC HEART DISEASE OF [place] CORONARY ARTERY WITHOUT ANGINA PECTORIS 02/21/[address] active 34 ATRIOVENTRICULAR BLOCK, COMPLETE 02/21/[address] active 35 BENIGN PROSTATIC HYPERPLASIA WITH LOWER URINARY TRACT SYMPTOMS 02/21/[address] active 36 BODY MASS INDEX [BMI] 37.0-37.9, ADULT 02/21/[address] active 37 CERVICALGIA 02/21/[address] active 38 CHEST PAIN, UNSPECIFIED 02/21/[address] active 39 CHRONIC DIASTOLIC (CONGESTIVE) HEART FAILURE 02/21/[address] active 40 CHRONIC KIDNEY DISEASE, STAGE 3 UNSPECIFIED 02/21/[address] active 41 CHRONIC OBSTRUCTIVE PULMONARY DISEASE, UNSPECIFIED 02/21/[address] active 42 CONSTIPATION, UNSPECIFIED 02/21/[address] active 43 ESSENTIAL (PRIMARY) HYPERTENSION 02/21/[address] active 44 GOUT, UNSPECIFIED 02/21/[address] active 45 HISTORY OF FALLING 02/21/[address] active 46 HYPERLIPIDEMIA, UNSPECIFIED 02/21/[address] active 47 HYPOKALEMIA 02/21/[address] active 48 HYPOTENSION, UNSPECIFIED 02/21/[address] active 49 IDIOPATHIC GOUT, LEFT ANKLE AND FOOT 02/21/[address] active 50 IDIOPATHIC GOUT, RIGHT ANKLE AND FOOT 02/21/[address] active 51 LOCALIZED EDEMA 02/21/[address] active 52 LOCALIZED SWELLING, MASS AND LUMP, LOWER LIMB, BILATERAL 02/21/[address] active 53 SENIOR CARE (CURRENT) USE OF ANTICOAGULANTS 02/21/[address] active 54 SENIOR CARE (CURRENT) USE OF ASPIRIN 02/21/[address] active 55 LUMBAGO WITH SCIATICA, UNSPECIFIED SIDE 02/21/[address] active 56 NEED FOR ASSISTANCE WITH PERSONAL CARE 02/21/[address] active 57 OBESITY, UNSPECIFIED 02/21/[address] active 58 OBSTRUCTIVE AND REFLUX UROPATHY, UNSPECIFIED 02/21/[address] active 59 OLD MYOCARDIAL INFARCTION 02/21/[address] active 60 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 02/21/[address] active 61 PERIPHERAL VASCULAR DISEASE, UNSPECIFIED 02/21/[address] active 62 PERSONAL HISTORY OF URINARY (TRACT) INFECTIONS 02/21/[address] active 63 PRESENCE OF AORTOCORONARY BYPASS GRAFT 02/21/[address] active 64 RETENTION OF URINE, UNSPECIFIED 02/21/[address] active 65 SHORTNESS OF BREATH 02/21/[address] active 66 SUBSEQUENT NON-ST ELEVATION (NSTEMI) MYOCARDIAL INFARCTION 02/21/[address] active 67 THIAMINE DEFICIENCY, UNSPECIFIED 02/21/[address] active 68 TYPE 2 DIABETES MELLITUS WITH DIABETIC NEUROPATHY, UNSPECIFIED 02/21/[address] active 69 TYPE 2 DIABETES MELLITUS WITHOUT COMPLICATIONS 02/21/[address] active 70 TYPICAL ATRIAL FLUTTER 02/21/[address] active 71 UNSPECIFIED ATRIAL FIBRILLATION 02/21/[address] active 72 UNSPECIFIED KYPHOSIS, THORACIC REGION 02/21/[address] active 73 UNSPECIFIED OSTEOARTHRITIS, UNSPECIFIED SITE 02/21/[address] active 74 VITAMIN B12 DEFICIENCY ANEMIA, UNSPECIFIED 02/21/[address] active 75 VITAMIN D DEFICIENCY, UNSPECIFIED 02/21/[address] active 76 XEROSIS CUTIS 02/21/[address] active 77 PERSONAL HISTORY OF (CORRECTED) CONGENITAL MALFORMATIONS OF RESPIRATORY SYSTEM 09/05/[address] active 78 PERSONAL HISTORY OF OTHER DISEASES OF THE RESPIRATORY SYSTEM 09/05/[address] active 79 PRESENCE OF CARDIAC PACEMAKER 08/21/[address] active Reason for Referral No Reasons for Referral Entered Social History Social History Observation Description Start Date End Date Code Code System Current Smoking Status Tobacco smoking consumption unknown 313788139 SNOMED CT Sex Assigned At Male 1945 86504-3 [facility] Gender Identity Sexual Orientation Vital Signs Code Code System Vitals Name Values and Units Timing Information 48171-0 [facility] Pain Level Value=8.0 05/02/2025 9279-1 [facility] Respiratory Rate Value=18.0 Units=/m in 05/02/2025 8462-4 [facility] Blood Pressure-Diastolic Value=68 Un its=mmHg 05/02/2025 8480-6 [facility] Blood Pressure-Systolic Xhmzi=976 Un its=mmHg 05/02/2025 8310-5 [facility] Body Temperature Value=97.9 Units= F 05/02/2025 8867-4 [facility] Heart rate Value=70.0 Units=/min 07/2025 93512-2 [facility] O2 % dC Oximetry Value=95.0 Units= % 05/02/2025 42255-7 [facility] Weight Doafx=377.0 Units=Lbs 12/2024 8302-2 [facility] Height Value=66.0 Units=Inches 01/28/2025
--- OUTSIDE RECORDS SUMMARY | 2025-05-02 06:12 | XMS_ITS | Encounter Summary ---
Author Organization [employer] Address [address] [place] [address] Care Team Providers Care Care Transition Mgr Name Role Phone Homar Watson MD Primary Care Provider [phone] Encounter Details Date Type Department Care Team (Latest Contact Info) Description 03/18/2025 Lab Requisition [facility] - Main Lab [address] [facility] [place] [address] Homar Watson MD [address] [place] [id number] Anemia, unspecified; Type 2 diabetes mellitus without complications (CMS/HCC V24, CMS/[facility] V28) Social History Tobacco Use Types Packs/Day Years Used Date Smoking Tobacco: Never Assessed Sex and Gender Information Value Date Recorded Sex Assigned at Not on file Legal Sex Male 3:40 PM EDT Gender Identity Not on file Sexual Orientation Not on file documented as of this encounter Plan of Treatment Not on file documented as of this encounter Visit Diagnoses Diagnosis Anemia, unspecified Type 2 diabetes mellitus without complications (CMS/HCC V24, CMS/[facility] V28) documented in this encounter Care Teams Care Transition Mgr Relationship Specialty Start Date End Date Homar Watson MD [address] [place] [address] PCP - General Family Medicine 07/11/24 documented as of this encounter
--- OUTSIDE RECORDS SUMMARY | 2025-05-02 06:12 | XMS_ITS | Encounter Summary ---
Author Organization [employer] Address [address] [place] [address] Care Team Providers Care Wetland Scientist Name Role Phone Homar Watson MD Primary Care Provider [phone]- [phone] Encounter Details Date Type Department Care Team (Late st Contact Info) Description 10/24/2024 Lab Requisition [facility] - Main Lab [address] [place] [address] Homar Watson MD [address] [place] [address] Acute cough Social History Tobacco Use Types Packs/Day Years [...] Procedure Name Priority Date/Time Associated Diagnosis Comments [id number], RSV, FLU A AND B QUALITATIVE RT-PCR, LOCAL REFERENCE LAB Routine 10/23/2024 12:00 AM EST Acute cough documented in this encounter Results * [id number], RSV, Influenza A and B qualitative RT-PCR (10/23/2024 12:00 AM EST) SARS COV-2 Not Detected Not Detected LAB MOLECULAR DIAGNOSTICS METHOD 10/24/2024 3:42 PM EST [facility] Comment: Disclaimer: The manner in which this information is used to guide patient care is the responsibility of the healthcare provider. Testing was performed using the The [employer] m SARS-CoV-2 test. This test has been authorized by FDA under an Emergency Use Authorization (EUA). This test is only authorized for the duration of time the declaration that circumstances exist justifying the authorization of the emergency use of in vitro diagnostic tests for detection of SARS-CoV-2 virus and/or diagnosis of COVID-19 infection under section 564(b)(1) of the Act, 21 U.S.C. 360bbb- 3(b)(1), unless the authorization is terminated or revoked sooner. Fact sheet for Healthcare Providers can be found at: https://www.fda.gov/media/411318/download Fact sheet for Patients can be found at: https://www.fda.gov/media/205196/download Influenza A PCR Not Detected Not Detected LAB MOLECULAR DIAGNOSTICS METHOD 10/24/2024 3:42 PM EST [facility] Influenza B PCR Not Detected Not Detected LAB MOLECULAR DIAGNOSTICS METHOD 10/24/2024 3:42 PM EST [facility] RSV PCR Not Detected Not Detected LAB MOLECULAR DIAGNOSTICS METHOD 10/24/2024 3:42 PM EST [facility] Swab Nasopharyngeal structure / Unknown 10/23/2024 10/24/2024 10:52 AM EST Homar Watson MD LAB MICROBIOLOGY - GENERAL O RDERABLES Final Result [facility] [address] [place] [address], documented in this encounter Visit Diagnoses Diagnosis Acute cough documented in this encounter Care Teams Wetland Scientist Relationship Specialty Start Date End Date Homar Watson MD [address] [place] [address] PCP - General Family Medicine 07/11/24 documented as of this encounter
--- OUTSIDE RECORDS SUMMARY | 2025-05-02 06:12 | XMS_ITS | Encounter Summary ---
Author Organization [employer] Address [address] [place] [address] Care Team Providers Care Retort Unloader Name Role Phone Homar Watson MD Primary Care Provider [phone]- [phone] Encounter Details Date Type Department Care Team (Late st Contact Info) Description 02/17/2025 Lab Requisition [facility] - Main Lab [address] [place] [address] Homar Watson MD [address] [place] [address] Personal history of other diseases of the respiratory system; Anemia, unspecified Social History Tobacco Use Types [...] Associated Diagnosis Comments COMPLETE BLOOD COUNT Routine 02/17/2025 7:17 AM EDT Personal history of other diseases of the respiratory system Anemia, unspecified BASIC METABOLIC PANEL Routine 02/17/2025 7:17 AM EDT Personal history of other diseases of the respiratory system Anemia, unspecified documented in this encounter Results * (ABNORMAL) Basic metabolic panel (02/17/2025 7:17 AM EDT) Sodium 138 133 - 145 mmol/L LAB CHEMISTRY METHOD 02/17/2025 11:34 AM EDT [facility] Potassium 3.6 3.5 - 5.5 mmol/L LAB CHEMISTRY METHOD 02/17/2025 11:34 AM EDT [facility] Chloride 99 96 - 110 mmol/L LAB CHEMISTRY METHOD 02/17/2025 11:34 AM [facility] CO2 29 21 - 32 mmol/L LAB CHEMISTRY METHOD 02/17/2025 11:34 AM [facility] Anion Gap 10 3 - 11 LAB CHEMISTRY METHOD 02/17/2025 11:34 AM [facility] Glucose 173(H) 70 - 100 mg/dL LAB CHEMISTRY METHOD 02/17/2025 11:34 AM [facility] BUN 25 5 - 25 mg/dL LAB CHEMISTRY METHOD 02/17/2025 11:34 AM [facility] Creatinine 1.30 0.70 - 1.30 mg/dL LAB CHEMISTRY METHOD 02/17/2025 11:34 AM [facility] eGFR 56(L) >=60 mL/min/1. 73m2 LAB CHEMISTRY METHOD 02/17/2025 11:34 AM [facility] Comment:Calculation based on the Chronic Kidney Disease Epidemiology Collaboration (CKD-EPI) equation refit without adjustment for race. BUN/Creatinine Ratio 19.2 LAB CHEMISTRY METHOD 02/17/2025 11:34 AM [facility] Calcium 8.6 8.5 - 10.5 mg/dL LAB CHEMISTRY METHOD 02/17/2025 11:34 AM [facility] Blood Venous blood specimen / Unknown Venipuncture / Unknown 02/17/2025 7:17 AM EDT 02/17/2025 10:42 AM EDT us Homar Watson MD LAB BLOOD ORDERABLES Final R esult [facility] [address] [place] [address], * (ABNORMAL) Complete blood count (02/17/2025 7:17 AM EDT) WBC 12.6(H) 4.8 - 10.8 K/mcL LAB HEMETOLOGY METHOD 02/17/2025 11:21 AM [facility] RBC 3.70(L) 4.50 - 5.50 M/mcL LAB HEMETOLOGY METHOD 02/17/2025 11:21 AM [facility] Hemoglobin 12.9(L) 13.5 - 17.5 g/dL LAB HEMETOLOGY METHOD 02/17/2025 11:21 AM [facility] Hematocrit 39.5(L) 42.0 - 54.0 % LAB HEMETOLOGY METHOD 02/17/2025 11:21 AM [facility] MCV 106.5(H) 79.0 - 98.0 FL LAB HEMETOLOGY METHOD 02/17/2025 11:21 AM [facility] MCH 34.8(H) 27.0 - 32.0 pcg LAB HEMETOLOGY METHOD 02/17/2025 11:21 AM [facility] MCHC 32.7 32.0 - 37.0 g/dL LAB HEMETOLOGY METHOD 02/17/2025 11:21 AM [facility] RDW 14.5 11.0 - 15.0 % LAB HEMETOLOGY METHOD 02/17/2025 11:21 AM [facility] Platelets 181 130 - 400 K/mcL LAB HEMETOLOGY METHOD 02/17/2025 11:21 AM [facility] MPV 12.6(H) 7.0 - 11.0 FL LAB HEMETOLOGY METHOD 02/17/2025 11:21 AM [facility] NRBC 0.0 <1.0 % LAB HEMETOLOGY METHOD 02/17/2025 11:21 AM [facility] NRBC Absolute 0.00 <0.10 K/mcL LAB HEMETOLOGY METHOD 02/17/2025 11:21 AM EDT [facility] Blood Venous blood specimen / Unknown Venipuncture / Unknown 02/17/2025 7:17 AM EDT 02/17/2025 10:42 AM EDT Homar Watson MD LAB BLOOD ORDERABLES Final R esult [facility] [address] [place] [address], documented in this encounter Visit Diagnoses Diagnosis Personal history of other diseases of the respiratory system Anemia, unspecified documented in this encounter Care Teams Retort Unloader Relationship Specialty Start Date End Date Homar Watson MD [address] [place] [address] PCP - General Family Medicine 07/11/24 documented as of this encounter
--- OUTSIDE RECORDS SUMMARY | 2025-05-02 06:12 | XMS_ITS | Encounter Summary ---
Author Organization [email or web address] Address [address] [place] [address] Care Team Providers Care Paper Products Machine Operator Name Role Phone Homar Watson MD Primary Care Provider [phone]- [phone] Encounter Details Date Type Department Care Team (Latest Contact Info) Description 04/22/2025 Lab Requisition [facility] - Main Lab [address] [facility] [place] [address] Homar Watson MD [facility] [place] [address] Encounter for screening, unspecified; Encounter for other administrative examinations Social History Tobacco Use Types Packs/Day Years [...] screening, unspecified Encounter for other administrative examinations documented in this encounter Results * Drug abuse screen 8a panel, urine (04/21/2025 7:00 AM EDT) Amphetamine Screen, Ur Negative Negative LAB CHEMISTRY METHOD 04/22/2025 1:20 PM EDT [facility] Comment:Certain OTC medicati ons containing ephedrine, phenylephrine, pseudoephedrine and phenylpropanolamine can cause false positive results. Barbiturate Screen, Ur Negative Negative LAB CHEMISTRY METHOD 04/22/2025 1:20 PM EDT [facility] Benzodiazepine Screen, Ur Negative Negative LAB CHEMISTRY METHOD 04/22/2025 1:20 PM EDT [facility] Cocaine Screen, Ur Negative Negative LAB CHEMISTRY METHOD 04/22/2025 1:20 PM EDT [facility] Opiate Screen, Ur Negative Negative LAB CHEMISTRY METHOD 04/22/2025 1:20 PM T [facility] Cannabinoid (THC) Screen, Ur Negative Negative LAB CHEMISTRY METHOD 04/22/2025 1:20 PM T [facility] Comment:Specimens from patie nts taking pantoprazole sodium (Protonix) have been shown to produce false positive results. Oxycodone Screen, Ur Negative Negative LAB CHEMISTRY METHOD 04/22/2025 1:20 PM EDT [facility] Fentanyl, Ur Negative Negative LAB CHEMISTRY METHOD 04/22/2025 1:20 PM [facility] Urine Urine specimen from urethra / Unknown Non-blood Collection / Unknown 04/21/2025 7:00 AM EDT 04/22/2025 10:42 AM EDT Narrative [facility] - 04/22/2025 1:20 PM EDT Assay cutoffs: Amphetamines 1000 ng/mL Barbiturates 200 ng/mL Benzodiazepines 200 ng/mL Cocaine 300 ng/mL Fentanyl 1 ng/mL Opiates 300 ng/mL Oxycodone 100 ng/mL THC 50 ng/mL Semi-quantitative assay for screening purposes only. Unconfirmed screening result should not be used for non-medical purposes. *ALTERNATE METHOD CONFIRMATION DONE UPON REQUEST ONLY* us Homar Watson MD LAB URINE ORDERABLES Final R esult [facility]) [facility] [address] [place] [address], documented in this encounter Visit Diagnoses Diagnosis Encounter for screening, unspecified Encounter for other administrative examinations documented in this encounter Care Teams Paper Products Machine Operator Relationship Specialty Start Date End Date Homar Watson MD [address] [place] [address] PCP - General Family Medicine 07/11/24 documented as of this encounter
--- OUTSIDE RECORDS SUMMARY | 2025-05-02 06:12 | XMS_ITS | Encounter Summary ---
Author Organization [employer] Address [address] [place] [address] Care Team Providers Care Cut To Length Operator Name Role Phone Homar Watson MD Primary Care Provider [phone]- [phone] Encounter Details Date Type Department Care Team (Latest Contact Info) Description 03/19/2025 Lab Requisition [facility] - Main Lab [address] [facility] [place] [address] Homar Watson MD [address] [place] [address] Anemia, unspecified; Type 2 diabetes mellitus without complications (CMS/HCC V24, CMS/[facility] V28) Social History Tobacco Use Types Packs/Day [...] 2 diabetes mellitus without complications (CMS/HCC V24, CMS/[facility] V28) documented in this encounter Care Teams Cut To Length Operator Relationship Specialty Start Date End Date Homar Watson MD [address] [place] [address] PCP - General Family Medicine 07/11/24 documented as of this encounter
--- OUTSIDE RECORDS SUMMARY | 2025-05-02 06:12 | XMS_ITS | Encounter Summary ---
Author Organization [employer] Address [address] [place] [address] Care Team Providers Care Income Tax Auditor Name Role Phone Homar Watson MD Primary Care Provider [phone]- [phone] Encounter Details Date Type Department Care Team (Late st Contact Info) Description 03/13/2025 Lab Requisition [facility] - Main Lab [address] [facility] [employer] [place] [address] Homar Watson MD [address] [place] [address] Essential (primary) hypertension Social History Tobacco Use Types Packs/Day Years [...] Associated Diagnosis Comments COMPLETE BLOOD COUNT Routine 03/13/2025 5:59 AM EDT Essential (primary) hypertension BASIC METABOLIC PANEL Routine 03/13/2025 5:59 AM EDT Essential (primary) hypertension documented in this encounter Results * (ABNORMAL) Basic metabolic panel (03/13/2025 5:59 AM EDT) Sodium 138 133 - 145 mmol/L LAB CHEMISTRY METHOD 03/13/2025 11:23 AM EDT [facility] Potassium 4.1 3.5 - 5.5 mmol/L LAB CHEMISTRY METHOD 03/13/2025 11:23 AM EDT [facility] Chloride 99 96 - 110 mmol/L LAB CHEMISTRY METHOD 03/13/2025 11:23 AM EDT [facility] CO2 34(H) 21 - 32 mmol/L LAB CHEMISTRY METHOD 03/13/2025 11:23 AM [facility] Anion Gap 5 3 - 11 LAB CHEMISTRY METHOD 03/13/2025 11:23 AM [facility] Glucose 135(H) 70 - 100 mg/dL LAB CHEMISTRY METHOD 03/13/2025 11:23 AM [facility] BUN 19 5 - 25 mg/dL LAB CHEMISTRY METHOD 03/13/2025 11:23 AM [facility] Creatinine 1.17 0.70 - 1.30 mg/dL LAB CHEMISTRY METHOD 03/13/2025 11:23 AM [facility] eGFR 63 >=60 mL/min/1. 73m2 LAB CHEMISTRY METHOD 03/13/2025 11:23 AM [facility] Comment:Calculation based on the Chronic Kidney Disease Epidemiology Collaboration (CKD-EPI) equation refit without adjustment for race. BUN/Creatinine Ratio 16.2 LAB CHEMISTRY METHOD 03/13/2025 11:23 AM [facility] Calcium 9.1 8.5 - 10.5 mg/dL LAB CHEMISTRY METHOD 03/13/2025 11:23 AM [facility] Blood Venous blood specimen / Unknown Venipuncture / Unknown 03/13/2025 5:59 AM EDT 03/13/2025 10:16 AM EDT us Homar Watson MD LAB BLOOD ORDERABLES Final R esult [facility] [address] [place] [address], * (ABNORMAL) Complete blood count (03/13/2025 5:59 AM EDT) WBC 6.9 4.8 - 10.8 K/mcL LAB HEMETOLOGY METHOD 03/13/2025 10:58 AM [facility] RBC 3.90(L) 4.50 - 5.50 M/mcL LAB HEMETOLOGY METHOD 03/13/2025 10:58 AM [facility] Hemoglobin 13.0(L) 13.5 - 17.5 g/dL LAB HEMETOLOGY METHOD 03/13/2025 10:58 AM [facility] Hematocrit 41.6(L) 42.0 - 54.0 % LAB HEMETOLOGY METHOD 03/13/2025 10:58 AM [facility] MCV 106.1(H) 79.0 - 98.0 FL LAB HEMETOLOGY METHOD 03/13/2025 10:58 AM [facility] MCH 33.2(H) 27.0 - 32.0 pcg LAB HEMETOLOGY METHOD 03/13/2025 10:58 AM [facility] MCHC 31.3(L) 32.0 - 37.0 g/dL LAB HEMETOLOGY METHOD 03/13/2025 10:58 AM [facility] RDW 14.3 11.0 - 15.0 % LAB HEMETOLOGY METHOD 03/13/2025 10:58 AM [facility] Platelets 191 130 - 400 K/mcL LAB HEMETOLOGY METHOD 03/13/2025 10:58 AM [facility] MPV 12.4(H) 7.0 - 11.0 FL LAB HEMETOLOGY METHOD 03/13/2025 10:58 AM [facility] NRBC 0.0 <1.0 % LAB HEMETOLOGY METHOD 03/13/2025 10:58 AM [facility] NRBC Absolute 0.00 <0.10 K/mcL LAB HEMETOLOGY METHOD 03/13/2025 10:58 AM [facility] Blood Venous blood specimen / Unknown Venipuncture / Unknown 03/13/2025 5:59 AM EDT 03/13/2025 10:16 AM EDT us Homar Watson MD LAB BLOOD ORDERABLES Final R esult [facility] [address] [place] [address], documented in this encounter Visit Diagnoses Diagnosis Essential (primary) hypertension Unspecified essential hypertension documented in this encounter Care Teams Income Tax Auditor Relationship Specialty Start Date End Date Homar Watson MD [address] [place] [address] PCP - General Family Medicine 07/11/24 documented as of this encounter
--- OUTSIDE RECORDS SUMMARY | 2025-05-02 06:12 | XMS_ITS | Encounter Summary ---
Author Organization [employer] Address [address] [place] [address] Care Team Providers Care Director Inbound Sales Name Role Phone Homar Watson MD Primary Care Provider Encounter Details Date Type Department Care Team (Late st Contact Info) Description 07/22/2024 Lab Requisition [facility] - Main Lab [address] [place] [address] Homar Watson MD [address] [place] [address] Elevated urine levels of drugs, medicaments and [...] LAB CHEMISTRY METHOD 07/22/2024 3:17 PM EST [facility] Comment:Certain OTC medicati ons containing ephedrine, phenylephrine, pseudoephedrine and phenylpropanolamine can cause false positive results. Barbiturate Screen, Ur Negative Negative LAB CHEMISTRY METHOD 07/22/2024 3:17 PM EST [facility] Benzodiazepine Screen, Ur Negative Negative LAB CHEMISTRY METHOD 07/22/2024 3:17 PM EST [facility] Cocaine Screen, Ur Negative Negative LAB CHEMISTRY METHOD 07/22/2024 3:17 PM [facility] Opiate Screen, Ur Negative Negative LAB CHEMISTRY METHOD 07/22/2024 3:17 PM [facility] Cannabinoid (THC) Screen, Ur Negative Negative LAB CHEMISTRY METHOD 07/22/2024 3:17 PM EST [facility] Comment:Specimens from patie nts taking pantoprazole sodium (Protonix) have been shown to produce false positive results. Oxycodone Screen, Ur Negative Negative LAB CHEMISTRY METHOD 07/22/2024 3:17 PM [facility] Fentanyl, Ur Negative Negative LAB CHEMISTRY METHOD 07/22/2024 3:17 PM [facility] Urine Urine specimen obtained by clean catch procedure / Unknown 07/21/2024 11:00 AM EST 07/22/2024 11:[address] [facility] - 07/22/2024 3:17 PM EST Assay cutoffs: Amphetamines 1000 ng/mL Barbiturates 200 ng/mL Benzodiazepines 200 ng/mL Cocaine 300 ng/mL Fentanyl 1 ng/mL Opiates 300 ng/mL Oxycodone 100 ng/mL THC 50 ng/mL Semi-quantitative assay for screening purposes only. Unconfirmed screening result should not be used for non-medical purposes. *ALTERNATE METHOD CONFIRMATION DONE UPON REQUEST ONLY* us Homar Watson MD LAB URINE ORDERABLES Final R esult [facility]) [facility] [address] [place] [address], documented in this encounter Visit Diagnoses Diagnosis Elevated urine levels of drugs, medicaments and biological substances Encounter for blood-alcohol and blood-drug test documented in this encounter Care Teams Director Inbound Sales Relationship Specialty Start Date End Date Homar Watson MD [address] [place] [address] PCP - General Family Medicine 07/11/24 documented as of this encounter
--- OUTSIDE RECORDS SUMMARY | 2025-05-02 06:12 | XMS_ITS | Encounter Summary ---
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 Social History Tobacco Use [...] Procedure Name Priority Date/Time Associated Diagnosis Comments URINALYSIS WITH REFLEX MICROSCOPIC AND CULTURE Routine 10/20/2024 2:00 PM EST Other long term care administrator (current) drug therapy URINALYSIS WITH REFLEX MICROSCOPIC AND CULTURE Routine 10/20/2024 2:00 PM EST Other long-term (current) drug therapy documented in this encounter Results * Urinalysis with reflex microscopic and culture (10/20/2024 2:00 PM EST) Specific [place] Urine 1.012 1.003 - 1.030 LAB URINALYSIS - AUTOMATED METHOD 10/21/2024 12:58 PM EST [facility] pH, Urine 5.5 5.0 - 8.0 pH LAB URINALYSIS - AUTOMATED METHOD 10/21/2024 12:58 PM EST [facility] Leukocytes, Urine Negative Negative LAB URINALYSIS - AUTOMATED METHOD 10/21/2024 12:58 PM [facility] Nitrite, Urine Negative Negative LAB URINALYSIS - AUTOMATED METHOD 10/21/2024 12:58 PM [facility] Protein, Urine Negative <=Trace mg/dL LAB URINALYSIS - AUTOMATED METHOD 10/21/2024 12:58 PM [facility] Glucose, Urine Negative Negative mg/dL LAB URINALYSIS - AUTOMATED METHOD 10/21/2024 12:58 PM [facility] Ketones, Urine Negative Negative mg/dL LAB URINALYSIS - AUTOMATED METHOD 10/21/2024 12:58 PM [facility] Urobilinogen, Urine 0.2 0.2 - 1.0 mg/dL LAB URINALYSIS - AUTOMATED METHOD 10/21/2024 12:58 PM [facility] Bilirubin, Urine Negative Negative LAB URINALYSIS - AUTOMATED METHOD 10/21/2024 12:58 PM [facility] Blood, Urine Negative Negative LAB URINALYSIS - AUTOMATED METHOD 10/21/2024 12:58 PM [facility] Urine Urine specimen obtained by clean catch procedure / Unknown Non-blood Collection / Unknown 10/20/2024 2:00 PM EST 10/21/2024 12:18 PM EST us Homar Watson MD LAB URINE ORDERABLES Final R esult [facility] [address] [place] [address], [place] [phone] documented in this encounter Visit Diagnoses Diagnosis Other long-term (current) drug therapy documented in this encounter Care Teams Franchise Manager Relationship Specialty Start Date End Date Homar Watson MD [address] [place] [address] PCP - General Family Medicine 07/11/24 documented as of this encounter
--- OUTSIDE RECORDS SUMMARY | 2025-05-02 06:12 | XMS_ITS | Encounter Summary ---
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 Social History Tobacco Use [...] URINE Routine 08/05/2024 12:00 AM EST Other terminal gauger supervisor (current) drug therapy documented in this encounter [...] - 08/08/2024 11:05 AM EST Performed at: 01 - [facility] [address] [place], [place] [id number] Toolroom Attendant: Lavelle Johnson PhD, Phone: [phone] us Homar Watson MD LAB URINE ORDERABLES Final R esult [facility] documented in this encounter Visit Diagnoses Diagnosis Other detention (current) drug therapy documented in this encounter Care Teams Drill Grinder Relationship Specialty Start Date End Date Homar Watson MD [address] [place] [address] PCP - General Family Medicine 07/11/24 documented as of this encounter
--- OUTSIDE RECORDS SUMMARY | 2025-05-02 06:12 | XMS_ITS | Encounter Summary ---
Author Organization [employer] Address [address] [place] [address] Care Team Providers Care Stevedore Dock Name Role Phone Hoamr Watson MD Primary Care Provider [phone] Encounter Details Date Type Department Care Team (Latest Contact Info) Description 07/11/2024 Lab Requisition [facility] - Main Lab [address] [place] [address] Homar Watson MD [facility] [place] [address] Chronic kidney disease, unspecified; Type 2 diabetes mellitus without complications (CMS/HCC V24, CMS/[facility] V28) Social History Tobacco Use Types [...] unspecified Type 2 diabetes mellitus without complications ([facility]) documented in this encounter Results * (ABNORMAL) Basic metabolic panel (07/11/2024 5:11 AM EST) Sodium 141 133 - 145 mmol/L LAB CHEMISTRY METHOD 07/11/2024 9:03 AM EST [facility] Potassium 4.5 3.5 - 5.5 mmol/L LAB CHEMISTRY METHOD 07/11/2024 9:03 AM EST [facility] Chloride 102 96 - 110 mmol/L LAB CHEMISTRY METHOD 07/11/2024 9:03 AM EST [facility] CO2 34(H) 21 - 32 mmol/L LAB CHEMISTRY METHOD 07/11/2024 9:03 AM [facility] Anion Gap 5 3 - 11 LAB CHEMISTRY METHOD 07/11/2024 9:03 AM [facility] Glucose 134(H) 70 - 100 mg/dL LAB CHEMISTRY METHOD 07/11/2024 9:03 AM [facility] BUN 21 5 - 25 mg/dL LAB CHEMISTRY METHOD 07/11/2024 9:03 AM [facility] Creatinine 1.31(H) 0.70 - 1.30 mg/dL LAB CHEMISTRY METHOD 07/11/2024 9:03 AM [facility] eGFR 56(L) >=60 mL/min/1. 73m2 LAB CHEMISTRY METHOD 07/11/2024 9:03 AM [facility] Comment:Calculation based on the Chronic Kidney Disease Epidemiology Collaboration (CKD-EPI) equation refit without adjustment for race. BUN/Creatinine Ratio 16.0 LAB CHEMISTRY METHOD 07/11/2024 9:03 AM [facility] Calcium 9.3 8.5 - 10.5 mg/dL LAB CHEMISTRY METHOD 07/11/2024 9:03 AM [facility] Blood Venous blood specimen / Unknown Venipuncture / Unknown 07/11/2024 5:11 AM EST 07/11/2024 7:54 AM EST us Homar Watson MD LAB BLOOD ORDERABLES Final R esult [facility] [address] [place] [address], documented in this encounter Visit Diagnoses Diagnosis Chronic kidney disease, unspecified Type 2 diabetes mellitus without complications (CMS/HCC V24, CMS/HCC V28) documented in this encounter Care Teams Stevedore Dock Relationship Specialty Start Date End Date Homar Watson MD [address] [place] [address] PCP - General Family Medicine 07/11/24 documented as of this encounter
--- OUTSIDE RECORDS SUMMARY | 2025-05-02 06:12 | XMS_ITS | Encounter Summary ---
Author Organization [employer] Address [address] [place] [address] Care Team Providers Care Specialty Foods Cook Name Role Phone Homar Watson MD Primary Care Provider [phone] Encounter Details Date Type Department Care Team (Late st Contact Info) Description 10/22/2024 Lab Requisition [facility] - Main Lab [address] [place] [address] Homar Watson MD [address] [place] [address] Drug abuse counseling and surveillance of drug abuser Social History Tobacco Use Types Packs/Day Years [...] Date/Time Associated Diagnosis Comments DRUG ABUSE SCREEN EXPANDED WITH REFLEX CONFIRMATION, URINE Routine 10/22/2024 1:45 AM EST Drug abuse counseling and surveillance of drug abuser documented in this encounter Results * Drug abuse screen expanded with reflex confirmation, urine (10/22/2024 1:45 AM EST) Amphetamine Screen, Ur Negative Negative LAB CHEMISTRY METHOD 10/22/2024 10:02 AM [facility] Comment:Certain OTC medicati ons containing ephedrine, phenylephrine, pseudoephedrine and phenylpropanolamine can cause false positive results. Barbiturate Screen, Ur Negative Negative LAB CHEMISTRY METHOD 10/22/2024 10:02 AM EST [facility] Benzodiazepine Screen, Ur Negative Negative LAB CHEMISTRY METHOD 10/22/2024 10:02 AM [facility] Cocaine Screen, Ur Negative Negative LAB CHEMISTRY METHOD 10/22/2024 10:02 AM [facility] Opiate Screen, Ur Negative Negative LAB CHEMISTRY METHOD 10/22/2024 10:02 AM [facility] Cannabinoid (THC) Screen, Ur Negative Negative LAB CHEMISTRY METHOD 10/22/2024 10:02 AM [facility] Comment:Specimens from patie nts taking pantoprazole sodium (Protonix) have been shown to produce false positive results. Fentanyl, Ur Negative Negative LAB CHEMISTRY METHOD 10/22/2024 10:02 AM [facility] Oxycodone Screen, Ur Negative Negative LAB CHEMISTRY METHOD 10/22/2024 10:02 AM [facility] Urine Urine specimen obtained by clean catch procedure / Unknown Non-blood Collection / Unknown 10/22/2024 1:45 AM EST 10/22/2024 9:[address] [facility] - 10/22/2024 10:02 AM EST Assay cutoffs: Amphetamines 1000 ng/mL Barbiturates 200 ng/mL Benzodiazepines 200 ng/mL Cocaine 300 ng/mL Fentanyl 1 ng/mL Opiates 300 ng/mL Oxycodone 100 ng/mL THC 50 ng/mL Semi-quantitative assay for screening purposes only. Unconfirmed screening result should not be used for non-medical purposes. *POSITIVE RESULTS ARE AUTOMATICALLY SENT FOR ALTERNATE METHOD CONFIRMATION* us Homar Watson MD LAB URINE ORDERABLES Final R esult [facility] [address] [place] [address], documented in this encounter Visit Diagnoses Diagnosis Drug abuse counseling and surveillance of drug abuser documented in this encounter Care Teams Specialty Foods Cook Relationship Specialty Start Date End Date Homar Watson MD [address] [place] [address] PCP - General Family Medicine 07/11/24 documented as of this encounter
--- OUTSIDE RECORDS SUMMARY | 2025-05-02 06:12 | XMS_ITS | Encounter Summary ---
Author Organization [employer] Address [address] [place] [address] Care Team Providers Care Geospatial Program Management Officer Name Role Phone Homar Watson MD Primary Care Provider [phone] Encounter Details Date Type Department Care Team (Late st Contact Info) Description 10/26/2024 Lab Requisition [facility] - Main Lab [address] [facility] [place] [address] Homar Watson MD [address] [place] [phone] Anemia, unspecified; Heart failure, unspecified (CMS/HCC V24, CMS/HCC V28) Social History [...] this encounter Visit Diagnoses Diagnosis Anemia, unspecified Heart failure, unspecified (CMS/HCC V24, CMS/HCC V28) Heart failure, unspecified documented in this encounter Care Teams Geospatial Program Management Officer Relationship Specialty Start Date End Date Homar Watson MD [address] [place] [id number] PCP - General Family Medicine 07/11/24 documented as of this encounter
--- OUTSIDE RECORDS SUMMARY | 2025-05-02 06:12 | XMS_ITS | Encounter Summary ---
Author Organization [employer] Address [address] [place] [address] Care Team Providers Care Poultry Slaughterer Name Role Phone Homar Watson MD Primary Care Provider [phone]- [phone] Encounter Details Date Type Department Care Team (Late st Contact Info) Description 01/20/2025 Lab Requisition [facility] - Main Lab [address] [facility] [place] [address] Homar Watson MD [address] [place] [address] Elevated urine levels of drugs, medicaments and biological substances Social History Tobacco Use Types Packs/Day Years [...] DRUG ABUSE SCREEN 8A PANEL, URINE Routine 01/20/2025 5:44 AM EDT Elevated urine levels of drugs, medicaments and biological substances documented in this encounter Results * Drug abuse screen 8a panel, urine (01/20/2025 5:44 AM EDT) Amphetamine Screen, Ur Negative Negative LAB CHEMISTRY METHOD 01/20/2025 8:40 AM EDT [facility] Comment:Certain OTC medicati ons containing ephedrine, phenylephrine, pseudoephedrine and phenylpropanolamine can cause false positive results. Barbiturate Screen, Ur Negative Negative LAB CHEMISTRY METHOD 01/20/2025 8:40 AM EDT [facility] Benzodiazepine Screen, Ur Negative Negative LAB CHEMISTRY METHOD 01/20/2025 8:40 AM EDT [facility] Cocaine Screen, Ur Negative Negative LAB CHEMISTRY METHOD 01/20/2025 8:40 AM [facility] Opiate Screen, Ur Negative Negative LAB CHEMISTRY METHOD 01/20/2025 8:40 AM [facility] Cannabinoid (THC) Screen, Ur Negative Negative LAB CHEMISTRY METHOD 01/20/2025 8:40 AM [facility] Comment:Specimens from patie nts taking pantoprazole sodium (Protonix) have been shown to produce false positive results. Oxycodone Screen, Ur Negative Negative LAB CHEMISTRY METHOD 01/20/2025 8:40 AM [facility] Fentanyl, Ur Negative Negative LAB CHEMISTRY METHOD 01/20/2025 8:40 AM [facility] Urine Urine specimen obtained by clean catch procedure / Unknown 01/20/2025 5:44 AM EDT 01/20/2025 7:24 AM EDT Narrative [facility] - 01/20/2025 8:40 AM EDT Assay cutoffs: Amphetamines 1000 ng/mL Barbiturates 200 ng/mL Benzodiazepines 200 ng/mL Cocaine 300 ng/mL Fentanyl 1 ng/mL Opiates 300 ng/mL Oxycodone 100 ng/mL THC 50 ng/mL Semi-quantitative assay for screening purposes only. Unconfirmed screening result should not be used for non-medical purposes. *ALTERNATE METHOD CONFIRMATION DONE UPON REQUEST ONLY* us Homar Watson MD LAB URINE ORDERABLES Final R esult [facility] [address] [place] [address], documented in this encounter Visit Diagnoses Diagnosis Elevated urine levels of drugs, medicaments and biological substances documented in this encounter Care Teams Poultry Slaughterer Relationship Specialty Start Date End Date Homar Watson MD [address] [place] [address] PCP - General Family Medicine 07/11/24 documented as of this encounter
[2025-05-02 06:39] VITALS: BP 123/60; PULSE 70; RESP 14; O2SAT 97
[2025-05-02 08:30] LABS: Troponin-I High Sensitivity 121.8 ng/L (<3.5-35.0)
[2025-05-02 09:07] VITALS: BP 124/37; PULSE 70; RESP 14; O2SAT 97
--- NOTE | 2025-05-02 10:04 | PM.IMHP ---
History of Present Illness Date of Service: 05/02/25 Attending physician on admission: Sindhu Jordan Chief Complaint: chest pain This is a 79-year-old male with history of coronary artery disease who presents to the emergency department with chest pain. Patient states around 03:00 this morning his pain woke him up from sleep. He describes the pain to be in the middle to the left side of his chest with no radiation and is described as cramping in nature. He denies any associated symptoms. The pain was initially severe and EN route to the hospital he received nitro and aspirin and within the subsequent hour his pain had completely resolved. He has remained chest pain free since then. EKG with V paced rhythm. Initial troponin went 11.5, increased slightly to 121.8 on repeat. Patient will be admitted overnight for observation. Review of Systems Review of Systems: Yes all other systems are reviewed and are negative Constitutional: Constitutional: Denies chills and Denies fever(s) Cardiovascular: Cardiovascular: Reports chest pain, Denies palpitations and Denies dyspnea Respiratory: Respiratory: Reports cough and Denies dyspnea Endocrine: Endocrine: Denies palpitations [facility] Medical History Pilonidal cyst Family History Sister FH: ovarian cancer Surgical History Hx of melanoma excision (~2016) Hx of appendectomy (~1954) Hx of lithotripsy (~11/2021) Hx of cardiac pacemaker (~08/2021) Social History Unable to assess alcohol history related to: Unknown Patient Tobacco Use Status: Tobacco use Unknown Smoked in Last 30 Days: No Use of substances other than those prescribed or required for medical reasons: No Advance Directives: No Advance Directives Information Provided: Yes Meds Allergies Allergy/AdvReac Type Severity Reaction Status Date / Time Penicillins Allergy Mild Unknown Verified 05/02/25 05:11 Active Medications: Current Medications Acetaminophen (Acetaminophen 325 Mg Tablet) 650 mg PO Q6H PRN PRN Reason: Pain, Mild 1-3,fever,headache Calcium Carbonate (Calcium Carbonate 750 Mg Tab.Chew) 750 mg PO Q4H PRN PRN Reason: Heartburn Dextrose (Dextrose 50 % 25 Gm/50 Ml Syringe) 25 gm IVPUSH Q15M PRN; Protocol PRN Reason: per Hypoglycemia Standing Ord. Glucose (Glucose Gel 15 Gm Gel..Gram.) 15 gm PO Q15M PRN; Protocol PRN Reason: per Hypoglycemia Standing Ord. Insulin Human Lispro (Insulin Lispro 100 Unit/Ml 3 Ml Vial) 0 unit SUBCUT [facility]; Protocol Magnesium Hydroxide (Milk Of Magnesia 30 Ml Oral.Susp) 30 ml PO DAILY PRN PRN Reason: Constipation Melatonin (Melatonin 3 Mg Tablet) 6 mg PO BEDTIME PRN PRN Reason: Insomnia Sodium Chloride (0.9 % Sodium Chloride Flush 3 Ml Syringe) 3 ml IVFLUSH [facility] Home Medications ?Medication ?Instructions ?Recorded ?Confirmed ?Last Taken ?Type acetaminophen 325 mg capsule 650 mg PO Q8H PRN DISCOMFORT/TEMP 06/14/24 05/02/25 Unknown History >101 albuterol sulfate 90 mcg/actuation 1 inh inhalation Q8H PRN Wheezing 06/14/24 05/02/25 Unknown History aerosol inhaler allopurinol 200 mg tablet 200 mg PO DAILY 06/14/24 05/02/25 Unknown History apixaban 5 mg tablet 5 mg PO BID 06/14/24 05/02/25 Unknown History aspirin 81 mg tablet,delayed 81 mg PO DAILY 06/14/24 05/02/25 Unknown History release (Adult Aspirin Regimen) atorvastatin 80 mg tablet 80 mg PO DAILY 06/14/24 05/02/25 Unknown History cholecalciferol (vitamin D3) 1,250 1,250 mcg PO Q28D 06/14/24 05/02/25 04/17/25 History mcg (50,000 unit) capsule (Optimal D3) dextrose 40 % oral gel 10 g PO Q15M PRN Hypoglycemia 06/14/24 05/02/25 Unknown History docusate sodium 100 mg capsule 100 mg PO BID PRN Constipation 06/14/24 05/02/25 Unknown History epinephrine 0.3 mg/0.3 mL 0.3 mg IM Q10M PRN Anaphylaxis 06/14/24 05/02/25 Unknown History injection syringe fluoride (sodium) 1.1 % dental 1 appl dental BEDTIME 06/14/24 05/02/25 Unknown History paste (PreviDent 5000 Booster Plus) gabapentin 100 mg capsule 200 mg PO BEDTIME 06/14/24 05/02/25 Unknown History glucagon 1 mg/0.2 mL subcutaneous 1 mg subcut Q15M PRN Hypoglycemia 06/14/24 05/02/25 Unknown History auto-injector guaifenesin 600 mg tablet, 600 mg PO Q12H 06/14/24 05/02/25 Unknown History extended release 12 hr metoprolol succinate 25 mg 12.5 mg PO DAILY 06/14/24 05/02/25 Unknown History tablet,extended release 24 hr naloxone 0.4 mg/mL injection 0.4 mg subcut Q2M PRN OPIOD 06/14/24 05/02/25 Unknown History solution OVERDOSE polyethylene glycol 3350 17 17 g PO Q12H PRN Constipation 06/14/24 05/02/25 Unknown History gram/dose oral powder potassium chloride 10 mEq 10 meq PO DAILY 06/14/24 05/02/25 Unknown History capsule,extended release tamsulosin 0.4 mg capsule 0.4 mg PO DAILY 06/14/24 05/02/25 Unknown History thiamine HCl (vitamin B1) 100 mg 100 mg PO DAILY 06/14/24 05/02/25 Unknown History tablet ascorbic acid (vitamin C) 500 mg 500 mg PO DAILY 05/02/25 05/02/25 Unknown History tablet cyanocobalamin (vitamin B-12) 500 500 mcg PO DAILY 05/02/25 05/02/25 Unknown History mcg tablet ferrous sulfate 325 mg (65 mg 325 mg PO DAILY 05/02/25 05/02/25 Unknown History iron) tablet fluticasone furoate 200 1 inh inhalation DAILY 05/02/25 05/02/25 Unknown History mcg/actuation blister powder for inhalation (Arnuity Ellipta) fluticasone propionate 50 1 spray intranasal DAILY 05/02/25 05/02/25 Unknown History mcg/actuation nasal spray,suspension ipratropium 0.5 mg-albuterol 3 mg 3 ml inhalation Q6H PRN Cough 05/02/25 05/02/25 Unknown History (2.5 mg base)/3 mL nebulization soln lidocaine 4 % topical patch 1 patch topical DAILY 05/02/25 05/02/25 Unknown History montelukast 5 mg chewable tablet 5 mg PO BEDTIME 05/02/25 05/02/25 Unknown History torsemide 20 mg tablet 40 mg PO DAILY 05/02/25 05/02/25 Unknown History Physical Exam Vital Signs and Narrative: Vital Signs: Last Vital Signs Temp 97.6 F 05/02/25 05:11 Pulse 70 05/02/25 09:07 Resp 14 05/02/25 09:07 BP 124/37 L 05/02/25 09:07 Pulse Ox 97 05/02/25 09:07 O2 Del Method Room Air 05/02/25 09:07 BMI result Body Mass Index 36.6 Const: General: cooperative, comfortable, no acute distress, alert and awake Nutritional Appearance: obese Orientation/consciousness: patient oriented x3 Chest: Other: median sternotomy scar well healed; PM left side with well healed incision. very tender to palpation left side of chest even with light palpation (pt reports chronic since surgery) Resp: Effort & Inspection: normal respiratory effort, able to speak in complete sentences, no respiratory distress and no use of accessory muscles Auscultation: clear to auscultation bilaterally Cardio: Rate: regular rate GI: Inspection: No distended Palpation (GI): Soft to palpation Neuro: General: patient oriented x3, moves all extremities and CN's II-XI intact bilaterally Results Labs 05/02/25 05:20 05/02/25 05:20 Labs: Laboratory Results - last 24 hr 05/02/25 05:20 MCV 98.7 H MCH 34.4 H MCHC 34.9 RDW 13.8 Plt Count 163 MPV 11.0 Immature Gran % (Auto) 0.3 Neut % (Auto) 70.9 Lymph % (Auto) 15.0 L [place] % (Auto) 10.5 Eos % (Auto) 2.8 Baso % (Auto) 0.5 Lymph # (Auto) 1.3 [place] # (Auto) 0.9 Eos # (Auto) 0.3 Baso # (Auto) 0.0 Abs Immat Gran (auto) 0.03 Absolute Neuts (auto) 6.2 Absolute Nucleated RBC 0.000 Nucleated RBC % (auto) 0.0 Anion Gap 15 Estim Creat Clear Calc 58.5 Estimated GFR > 60 Random Glucose 148 H Calcium 9.0 Total Bilirubin 0.7 AST 36 ALT 31 Alkaline Phosphatase 98 Total Protein 7.1 Albumin 3.9 Lipase 17 Assessment and Plan (1) Chest pain, precordial: Status: Acute Plan This is a 79-year-old male with history of CAD s/p CABG '22, PAD, SSS s/p PPM, CKD3, HFpEF, T2DM, gout who presents to the ED with chest pain Chest pain/unstable angina trops relatively flat, will trend third troponin pain resolved at this time check echo cardiology evaluation continue AC with Eliquis T2DM SSI, POCs, ADA diet chronic cough cxr showing pleural/paranchymal dz LLL - chronic similar to images from [facility] currently undergoing work up with pulmonary at [facility] No change from baseline symptoms. No hypoxia Continue baseline inhalers Gout Continue allopurinol dvt ppx - eliquis code status - DNR/DNI Quality Stroke Does the patient have a stroke diagnosis?: No VTE Prior VTE?: No VTE Risk Level:: Medical - moderate - high VTE Device Contraindication: Treatment Not Indicated VTE Drug Contraindication: N/A - Med Ordered
--- NOTE | 2025-05-02 10:38 | PHA.MEDREC ---
Pharmacy Consult ? Medication Reconciliation Pharmacy has completed the medication reconciliation.med rec complete, utilized list from [facility]
--- NOTE | 2025-05-02 11:10 | PC.NURSE ---
Update given over the phone to RN at [facility]. She was informed at that time that he would be admitted. Pt is refusing admit at this time
--- NOTE | 2025-05-02 13:01 | P.CONCA_ITS ---
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 Patient is not a good historian. He said he is been [place] [facility] facility as he has not been able to take care of himself directly from the present. He said he was in the present 53 years. He said in 2021 had symptoms of shortness of breath chest discomfort at that time had [facility] in [place] he underwent 4 vessel coronary artery bypass grafting. He is not able to provide any further details. Since then he did have chest discomfort and went to [facility] and was prescribed medications. He said a year prior to his coronary artery bypass grafting in his undergone a pacemaker placement and he also has history of atrial fibrillation/flutter, on chronic anticoagulation. He said he is in his usual state of health does routine activities around the room going to the bathroom taking care of himself. He has not had any recent exertional symptoms. This morning he woke up and then developed retrosternal chest pressure similar to his prior symptoms and told the staff. The symptoms lasted for about an hour. He was then given aspirin and sublingual nitroglycerin by the time he was brought to the emergency room his symptoms had subsided. He does not have recurrent chest discomfort at this point time. EKGs showed atrial flutter with ventricularly paced rhythm and nondiagnostic for ischemia. Troponins were mildly elevated. Cardiology consult was sought because of his symptoms and prior history. Review of Systems 2 Constitutional: Constitutional: Reports no additional constitutional complaints Eyes: Eyes: Reports no additional eye complaints Cardiovascular: Cardiovascular: Reports chest pain at rest, Denies leg edema, Denies lightheadedness, Denies Loss of Consciousness, Denies palpitations, Denies dyspnea, Denies dyspnea on exertion and Denies orthopnea Respiratory: Respiratory: Reports no additional respiratory complaints, Denies dyspnea and Denies dyspnea on exertion Gastrointestinal: Gastrointestinal: Reports no additional gastrointestinal complaints Musculoskeletal: Musculoskeletal: Reports no additional musculoskeletal complaints Integumentary/Breasts: Skin/Breast: Reports system reviewed and no additional complaints, except as docu Neurologic: Reports system reviewed and no additional complaints, except as documented Psychiatric: Psychiatric: Reports no additional psychiatric complaints Endocrine: Endocrine: Denies palpitations PMFSH Past Medical History Medical History Pilonidal cyst Family History Family History Sister FH: ovarian cancer Surgical History Surgical History Hx of melanoma excision (~2016) Hx of appendectomy (~1954) Hx of lithotripsy (~11/2021) Hx of cardiac pacemaker (~08/2021) Social History Social History Unable to assess alcohol history related to: Unknown Patient Tobacco Use Status: Tobacco use Unknown Smoked in Last 30 Days: No Use of substances other than those prescribed or required for medical reasons: No Advance Directives: No Advance Directives Information Provided: Yes Meds Allergies Allergy/AdvReac Type Severity Reaction Status Date / Time Penicillins Allergy Mild Unknown Verified 05/02/25 05:11 Active Medications: Current Medications Acetaminophen (Acetaminophen 325 Mg Tablet) 650 mg PO Q6H PRN PRN Reason: Pain, Mild 1-3,fever,headache Albuterol Sulfate (Albuterol Sulfate 90 Mcg 8 Gm Inhaler) 1 puff INHALE Q8H PRN PRN Reason: Wheezing Albuterol/Ipratropium (Albuterol/Iprat 2.5/0.5mg 3 Ml Ampul.Neb) 3 ml INHALE Q6H PRN PRN Reason: Cough Allopurinol (Allopurinol 100 Mg Tablet) 200 mg PO DAILY [facility] Ascorbic Acid (Ascorbic Acid 500 Mg Tablet) 500 mg PO DAILY [facility] Aspirin (Aspirin Enteric Coated 81 Mg Tablet.) 81 mg PO DAILY [facility] Atorvastatin Calcium (Atorvastatin Calcium 80 Mg Tablet) 80 mg PO DAILY [facility] Last Admin: 05/02/25 12:23 Dose: Not Given Calcium Carbonate (Calcium Carbonate 750 Mg Tab.Chew) 750 mg PO Q4H PRN PRN Reason: Heartburn Dextrose (Dextrose 50 % 25 Gm/50 Ml Syringe) 25 gm IVPUSH Q15M PRN; Protocol PRN Reason: per Hypoglycemia Standing Ord. Ferrous Sulfate (Ferrous Sulfate 324 Mg Tablet.) 324 mg PO DAILY [facility] Fluticasone Propionate (Fluticasone Propionate 250 Mcg Blst.W.Dev) 1 puff INHALE RBID [facility] Fluticasone Propionate (Fluticasone Propionate Nasal 16 Gm [place]) 1 spray NOSTRIL-B DAILY [facility] Gabapentin (Gabapentin 100 Mg Capsule) 200 mg PO BEDTIME [facility] Glucose (Glucose Gel 15 Gm Gel..Gram.) 15 gm PO Q15M PRN; Protocol PRN Reason: per Hypoglycemia Standing Ord. Guaifenesin (Guaifenesin La 600 Mg Tab.Er.12h) 600 mg PO Q12H GISELA Last Admin: 05/02/25 12:23 Dose: Not Given Insulin Human Lispro (Insulin Lispro 100 Unit/Ml 3 Ml Vial) 0 unit SUBCUT QIDACHS [facility]; Protocol Last Admin: 05/02/25 12:23 Dose: Not Given Lidocaine (Lidocaine 4 % Patch Adh..Patch) 1 patch TRANSDERMA DAILY [facility]; Protocol Magnesium Hydroxide (Milk Of Magnesia 30 Ml Oral.Susp) 30 ml PO DAILY PRN PRN Reason: Constipation Melatonin (Melatonin 3 Mg Tablet) 6 mg PO BEDTIME PRN PRN Reason: Insomnia Metoprolol Succinate (Metoprolol Succinate Er 12.5 Mg Halftab.Er.24h) 12.5 mg PO DAILY [facility]; Protocol Last Admin: 05/02/25 12:23 Dose: Not Given Montelukast Sodium (Montelukast Sodium 10 Mg Tablet) 5 mg PO BEDTIME [facility] Nitroglycerin (Nitroglycerin 2 % Oint 1 Gm Packet) 0.5 inch TRANSDERMA RQ6H WHILE AWAKE [facility] Potassium Chloride (Potassium Chloride Er 10 Meq Tablet.Er) 10 meq PO DAILY [facility] Sodium Chloride (0.9 % Sodium Chloride Flush 3 Ml Syringe) 3 ml IVFLUSH QSHIFT [facility] Tamsulosin HCl (Tamsulosin Hcl 0.4 Mg Capsule) 0.4 mg PO DAILY [facility] Thiamine HCl (Thiamine Hcl 100 Mg Tablet) 100 mg PO DAILY [facility] Torsemide (Torsemide 20 Mg Tablet) 40 mg PO DAILY [facility]; Protocol Home Medications ?Medication ?Instructions ?Recorded ?Confirmed ?Last Taken ?Type acetaminophen 325 mg capsule 650 mg PO Q8H PRN DISCOMF ORT/TEMP 06/14/24 05/02/25 Unknown History >101 albuterol sulfate 90 mcg/actuation 1 inh inhalation Q8 H PRN Wheezing 06/14/24 05/02/25 Unknown History aerosol inhaler allopurinol 200 mg tablet 200 mg PO DAILY 06/14/2408/14 Unknown History apixaban 5 mg tablet 5 mg PO BID 06/14/24 5 Unknown History aspirin 81 mg tablet,delayed 81 mg PO DAILY 06/14/24 0 05/02/25 Unknown History release (Adult Aspirin Regimen) atorvastatin 80 mg tablet 80 mg PO DAILY 06/14/2404/21 Unknown History cholecalciferol (vitamin D3) 1,250 1,250 mcg PO Q28D 1 05/02/25 04/17/25 History mcg (50,000 unit) capsule (Optimal D3) dextrose 40 % oral gel 10 g PO Q15M PRN Hypoglycemi a 06/14/24 05/02/25 Unknown History docusate sodium 100 mg capsule 100 mg PO BID PRN Const ipation 06/14/24 05/02/25 Unknown History epinephrine 0.3 mg/0.3 mL 0.3 mg IM Q10M PRN Anaphylax is 06/14/24 05/02/25 Unknown History injection syringe fluoride (sodium) 1.1 % dental 1 appl dental BEDTIME 1 05/02/25 Unknown History paste (PreviDent 5000 Booster Plus) gabapentin 100 mg capsule 200 mg PO BEDTIME 06/14/24 0 05/02/25 Unknown History glucagon 1 mg/0.2 mL subcutaneous 1 mg subcut Q15M PRN Hypoglycemia 06/14/24 05/02/25 Unknown History auto-injector guaifenesin 600 mg tablet, 600 mg PO Q12H 06/14/2408/14 Unknown History extended release 12 hr metoprolol succinate 25 mg 12.5 mg PO DAILY 06/14/24 0 05/02/25 Unknown History tablet,extended release 24 hr naloxone 0.4 mg/mL injection 0.4 mg subcut Q2M PRN OPI OD 06/14/24 05/02/25 Unknown History solution OVERDOSE polyethylene glycol 3350 17 17 g PO Q12H PRN Constipat ion 06/14/24 05/02/25 Unknown History gram/dose oral powder potassium chloride 10 mEq 10 meq PO DAILY 06/14/2408/14 Unknown History capsule,extended release tamsulosin 0.4 mg capsule 0.4 mg PO DAILY 06/14/2408/14 Unknown History thiamine HCl (vitamin B1) 100 mg 100 mg PO DAILY 06/1405/02/25 Unknown History tablet ascorbic acid (vitamin C) 500 mg 500 mg PO DAILY 05/0205/02/25 Unknown History tablet cyanocobalamin (vitamin B-12) 500 500 mcg PO DAILY 08/1405/02/25 Unknown History mcg tablet ferrous sulfate 325 mg (65 mg 325 mg PO DAILY 05/02/25 05/02/25 Unknown History iron) tablet fluticasone furoate 200 1 inh inhalation DAILY 05/0205/02/25 Unknown History mcg/actuation blister powder for inhalation (Arnuity Ellipta) fluticasone propionate 50 1 spray intranasal DAILY 08/1405/02/25 Unknown History mcg/actuation nasal spray,suspension ipratropium 0.5 mg-albuterol 3 mg 3 ml inhalation Q6H PRN Cough 05/02/25 05/02/25 Unknown History (2.5 mg base)/3 mL nebulization soln lidocaine 4 % topical patch 1 patch topical DAILY 04/2105/02/25 Unknown History montelukast 5 mg chewable tablet 5 mg PO BEDTIME 05/0205/02/25 Unknown History torsemide 20 mg tablet 40 mg PO DAILY 05/02/2504/21 Unknown History Physical Exam 2 Vital Signs: Vital Signs: Last Vital Signs Temp 97.6 F 05/02/25 05:11 Pulse 70 05/02/25 09:07 Resp 14 05/02/25 09:07 BP 124/37 L 05/02/25 09:07 Pulse Ox 97 05/02/25 09:07 O2 Del Method Room Air 05/02/25 09:07 BMI result Body Mass Index 36.6 Const: General: cooperative, comfortable, no acute distress, alert and awake Nutritional Appearance: obese Orientation/consciousness: patient oriented x3 HEENT: Head: Yes normocephalic and Yes atraumatic Neck: Neck: Yes trachea midline, Yes supple and Yes no JVD Resp: Effort & Inspection: normal respiratory effort Auscultation: clear to auscultation bilaterally Cardio: Jugular venous distension: no JVD Rate: regular rate Rhythm: r egular rhythm Heart sounds: S1 normal heart sound present, S2 normal heart sound present, no click, no gallops, no murmurs and no rubs GI: Auscultation: normal bowel sounds Skin: General skin exam: no rashes or lesions noted Neuro: General: patient oriented x3 and no focal motor deficits Extrem: General: Yes no clubbing, cyanosis or edema Objective Labs and Meds 05/02/25 05:20 05/02/25 05:20 Lab results: Laboratory Results - last 24 hr 05/02/25 05/02/25 05:20 07:57 WBC 8.8 RBC 3.72 L Hgb 12.8 L Hct 36.7 L MCV 98.7 H MCH 34.4 H MCHC 34.9 RDW 13.8 Plt Count 163 MPV 11.0 Immature Gran % (Auto) 0.3 Neut % (Auto) 70.9 Lymph % (Auto) 15.0 L [place] % (Auto) 10.5 Eos % (Auto) 2.8 Baso % (Auto) 0.5 Lymph # (Auto) 1.3 [place] # (Auto) 0.9 Eos # (Auto) 0.3 Baso # (Auto) 0.0 Abs Immat Gran (auto) 0.03 Absolute Neuts (auto) 6.2 Absolute Nucleated RBC 0.000 Nucleated RBC % (auto) 0.0 Sodium 141 Potassium 3.6 Chloride 103 Carbon Dioxide 27 Anion Gap 15 BUN 25 H Creatinine 1.15 Estim Creat Clear Calc 58.5 Estimated GFR > 60 Random Glucose 148 H Calcium 9.0 Total Bilirubin 0.7 AST 36 ALT 31 Alkaline Phosphatase 98 Troponin I High Sens 111.5 H* 121.8 H* Total Protein 7.1 Albumin 3.9 Lipase 17 EKGs shows atrial flutter with ventricularly paced rhythm Assessment and Plan (1) Acute coronary syndrome: Status: Acute Patient with sudden onset symptoms at rest similar to his angina, symptoms highly suggestive of acute coronary syndrome and possibly represent possible graft closure. Currently he is chest pain-free. He requires cardiac catheterization to further delineate the cause of his symptoms and further treatment including interventions if so required. I would advised him to be started on nitro paste. He has been given aspirin. I would switch his Eliquis for IV heparin for at least 48-72 hours. Continue metoprolol therapy. Will need an echocardiogram. Discussed with him the need for cardiac catheterization including possible risks, benefits and alternatives and possible outcomes. He showed understanding and agreement when I spoke to him. Will transfer him to [facility] once bed is available. Echocardiogram should be requested. Will follow with you Procedures Date of Service Date of Service: 05/02/25
--- NOTE | 2025-05-02 13:03 | PM.EVENT ---
Event Note Date of Service: 05/02/25 Event Note: Discharge: Patient was admitted for chest pain, due to underlying coronary artery disease, plan made to start heparin drip, obtain echocardiogram and consider transfer to [facility] for cardiac catheterization. Patient was initially admitted to the hospital but then changed his mind citing he would not want to be admitted, did not want heparin drip, did not want transfer to [facility] and would not want a cardiac catheterization. He has elected to leave the hospital against medical advice. He is alert and oriented x3 and understands the risks of leaving. Physical exam unchanged from admission Discharge diagnosis-chest pain/unstable angina Time Spent With Patient Time: Total time managing care of this patient today ____ minutes.
--- NOTE | 2025-05-02 13:53 | PC.NURSE ---
Report given to Mey JEFFERS at [facility]
[2025-05-02 13:56] VITALS: BP 121/57; PULSE 70; RESP 16; O2SAT 95
[2025-05-02 15:28] VITALS: BP 121/57; PULSE 70; RESP 16; TEMP 36.8; O2SAT 95
--- NOTE | 2025-05-02 15:29 | PC.NURSE ---
Patient denies sob or chest pain, states he [facility] to [facility], does not care if he drops . Daughter aware
--- NOTE | 2025-05-08 06:59 | PM.DS ---
DS: Providers Provider Date of Service: 05/02/25 Date of admission: 05/02/25 09:24 Date of discharge: 05/02/25 Primary care physician: Unknown Physician Consults: 05/02/25 10:01 Consult to Cardiology Routine Consulting Provider: [facility] Reason for consultation: chest pain Has provider been notified: No Attending physician on discharge: Sindhu Jordan Discharging clinician: Saba Giordano DS: Diagnosis Discharge Diagnosis (1) Acute coronary syndrome: Status: Acute DS: Summary Hospital Course Hospital Course: Patient was admitted for chest pain. Cardiac enzymes remained flat history artery disease, Cardiology recommended switching Eliquis to heparin drip, obtaining echocardiogram and considering transfer to [facility] for cardiac catheterization. Patient has declined heparin drip, echocardiogram and does not want to be transferred to [facility], does not want cardiac catheterization. And ultimately elected to leave the hospital against medical advice. He was awake, alert and was able to explain the risks of leaving without further treatment. He is encouraged to return to the hospital if his symptoms worsened. Time Attestation Total time managing care of this patient today: 30 mintues. Discharge Coordination Time (in mins): 30 Quality: Safe Use of Opioids Does Pt have an Active Cancer Diagnosis on the Problem List?: No Quality: Stroke Does the patient have a stroke diagnosis?: No Physical Exam Vital Signs: Vital Signs: Last Vital Signs Temp 98.2 F 05/02/25 15:28 Pulse 70 05/02/25 15:28 Resp 16 05/02/25 15:28 BP 121/57 L 05/02/25 15:28 Pulse Ox 95 05/02/25 15:28 O2 Del Method Room Air 05/02/25 15:28 BMI result Body Mass Index 36.6 Const: Other: physical exam unchanged from admission Discharge Plan Discharge Patient Disposition: Left Against Medical Advice Discharge Diagnosis: chest pain Referrals: [facility] [Outside] - 1 Week Physician,Unknown J [Primary Care Provider, Medical] - 1 Week Discharge Medications: Continued cyanocobalamin (vitamin B-12) 500 mcg Tablet 500 mcg PO DAILY montelukast 5 mg Tablet,Chewable 5 mg PO BEDTIME lidocaine 4 % Adhesive Patch,Medicated 1 patch TOPICAL DAILY Protocol: Apply to: Apply to: LOWER BACK torsemide 20 mg Tablet 40 mg PO DAILY fluticasone furoate [Arnuity Ellipta] 200 mcg/actuation Blister With Device 1 inh INHALATION DAILY ferrous sulfate 325 mg (65 mg iron) Tablet 325 mg PO DAILY fluticasone propionate 50 mcg/actuation [place],Suspension 1 spray INTRANASAL DAILY Rx Instructions: administer into each nostril ascorbic acid (vitamin C) 500 mg Tablet 500 mg PO DAILY ipratropium-albuterol [DuoNeb] 0.5 mg-3 mg(2.5 mg base)/3 mL Solution For Nebulization 3 ml INHALATION Q6H PRN (Reason: Cough) cholecalciferol (vitamin D3) [Optimal D3] 1,250 mcg (50,000 unit) capsule 1,250 mcg PO Q28D gabapentin 100 mg capsule 200 mg PO BEDTIME docusate sodium 100 mg capsule 100 mg PO BID PRN (Reason: Constipation) polyethylene glycol 3350 17 gram/dose powder 17 g PO Q12H PRN (Reason: Constipation) fluoride (sodium) [PreviDent 5000 Booster Plus] 1.1 % paste 1 appl dental BEDTIME epinephrine 0.3 mg/0.3 mL syringe 0.3 mg IM Q10M PRN (Reason: Anaphylaxis) Rx Instructions: for 2 doses guaifenesin 600 mg tablet extended release 12hr 600 mg PO Q12H metoprolol succinate 25 mg tablet extended release 24 hr 12.5 mg PO DAILY Protocol: Hold for SBP< HOLD for SBP < : 100 thiamine HCl (vitamin B1) 100 mg tablet 100 mg PO DAILY atorvastatin 80 mg tablet 80 mg PO DAILY potassium chloride 10 mEq capsule, extended release 10 meq PO DAILY apixaban 5 mg tablet 5 mg PO BID acetaminophen 325 mg capsule 650 mg PO Q8H PRN (Reason: DISCOMFORT/TEMP >101) naloxone 0.4 mg/mL solution 0.4 mg subcut Q2M PRN (Reason: OPIOD OVERDOSE) Rx Instructions: NTExceed 10 mg total dose/episode tamsulosin 0.4 mg capsule 0.4 mg PO DAILY allopurinol 200 mg tablet 200 mg PO DAILY aspirin [Adult Aspirin Regimen] 81 mg tablet,delayed release (DR/EC) 81 mg PO DAILY glucagon 1 mg/0.2 mL auto-injector 1 mg subcut Q15M PRN (Reason: Hypoglycemia) Rx Instructions: RECHECK FSG IN 15 MIN, RETREAT UNTIL FSG IS EQUAL TO 100 MG/DL dextrose 40 % gel 10 g PO Q15M PRN (Reason: Hypoglycemia) Rx Instructions: until symptoms of low blood sugar are controlled albuterol sulfate 90 mcg/actuation HFA aerosol inhaler 1 inh inhalation Q8H PRN (Reason: Wheezing) Discharge Orders: Discharge Order (Routine); Ordered 05/02/25 Ordered By: Saba Giordano Activity on Discharge: As tolerated Print Language: Estonian Care Plan Goals: see below Health Concerns: Chest pain Plan of Treatment: Left against medical advice. Recommended heparin drip and transferred to [facility] for cardiac catheterization. Patient has declined and elects to return back to [facility]. The risks were discussed in detail and he understands and accepts risks of worsening heart disease, acute coronary syndrome. Assessment: See discharge summary Discharge Date/Time: 05/02/25 17:40
== END 2025-05-02 17:40 | disposition left against medical advice (07) ==
LOC: HO.ED 09:28 → HO.EDOVER 09:44
PROVIDERS: Emergency Medicine; Admitting Provider Physician Assistant Medical; Emergency Provider Emergency Medicine; Visit Provider Physician Assistant Medical
DX: R07.2 Precordial pain (principal); I24.9 Acute ischemic heart disease, unspecified; I48.91 Unspecified atrial fibrillation; Z53.29 Procedure and treatment not carried out because of patient's decision for other reasons
CPT/HCPCS: 36415; 71045; 80053; 83690; 84484; 85025; 93005; 99222; 99284; Q9957

== ENCOUNTER → 2025-05-02 05:06 | Outpatient (BNV) | payer MEDICAID, SELFPAY | PROVIDERS: Admitting Provider Physician Assistant Medical; Emergency Provider Emergency Medicine; Visit Provider Internal Medicine Cardiovascular Disease | DX: I48.92 Unspecified atrial flutter (principal); Z95.0 Presence of cardiac pacemaker | CPT/HCPCS: 93010 ==

== ENCOUNTER → 2025-05-02 05:14 | Outpatient (BNV) | payer MEDICAID, SELFPAY | PROVIDERS: Emergency Provider Emergency Medicine; Visit Provider Radiology Diagnostic Radiology | DX: R07.2 Precordial pain (principal) | CPT/HCPCS: 71045 ==

== ENCOUNTER → 2025-05-02 09:24 | Outpatient (BNV) | payer MEDICAID, SELFPAY | PROVIDERS: Admitting Provider Physician Assistant Medical; Emergency Provider Emergency Medicine; Visit Provider Internal Medicine Cardiovascular Disease | DX: I24.9 Acute ischemic heart disease, unspecified (principal) | CPT/HCPCS: 99222 ==

== ENCOUNTER → 2025-05-02 09:24 | Outpatient (BNV) | payer MEDICAID, SELFPAY | PROVIDERS: Admitting Provider Physician Assistant Medical; Emergency Provider Emergency Medicine; Visit Provider Physician Assistant Medical | DX: I24.9 Acute ischemic heart disease, unspecified (principal) | CPT/HCPCS: 99223; 99239; 99499 ==

== ENCOUNTER 2025-05-25 21:34 | Emergency (ER) | payer MEDICAID, SELFPAY ==
--- NOTE | ~2025-05-25 | XR_ITS ---
CLINICAL HISTORY: AMS, cough 1 view chest x-ray Comparison: CR - XR CHEST 1V - 05/02/25 05:18 EDT Findings: Mild interstitial prominence in both lungs. Small left pleural effusion. Mild cardiomegaly. No acute fracture. Left chest single lead pacemaker in stable position. IMPRESSION: 1. Mild diffuse interstitial prominence in both lungs and small left pleural effusion along with mild cardiomegaly, may represent fluid overload/CHF. This document has been electronically signed by: Jose Arellano MD on 05/25/2025 22:56:47
--- NOTE | ~2025-05-25 | CT_ITS ---
CLINICAL HISTORY: AMS CT head without contrast Comparison: None provided Findings: No acute intracranial fluid collection or hematoma. Moderate chronic white matter disease with volume loss. 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 No acute process in sinuses or mastoids. No acute bony abnormality. Impression: No acute intracranial process This document has been electronically signed by: Jamil Muir MD on 05/25/2025 23:13:34
[2025-05-25 21:40] VITALS: BP 120/63; BP 144/48; PULSE 70; RESP 21; TEMP 36.8; O2SAT 96; BMI 34.8
--- NOTE | 2025-05-25 21:47 | ED.AMS ---
HPI - Altered Mental Status General Chief Complaint: Altered Mental Status Stated Complaint: AMS slumped over to R LKWT 820pm GCS=8 HR 73 Time Seen by Provider: 05/25/25 21:47 Source: EMS, RN notes reviewed and old records reviewed Mode of arrival: EMS Limitations: altered mental status History of Present Illness ED Provider: Dr. Aishwarya Velez HPI narrative: 79-year-old male with extensive past medical history including atrial flutter with a pacemaker placement, diabetes, COPD, hypertension, CKD [facility] from [facility] with reported altered mental status. EMS reports they are called when the patient had an episode of unresponsiveness at about 8:30 p.m. tonight. A timeline is rather unclear. EMS reports nurse's told them that the patient was talking to his friend when he became unresponsive at about 8:20 p.m. evidently he stopped talking, slumped to the right side and stopped talking. Evidently 10 minutes later he was able to take all of his nighttime medications. EMS was called for continued altered mental status. Patient takes multiple medications at night including gabapentin, blood pressure, cholesterol and COPD medications. No reported illness prior to this. There is no reports of a fever or vomiting today. No further information is able to be obtained at this time. Related Data Home Medications ?Medication ?Instructions ?Recorded ?Confirmed acetaminophen 325 mg capsule 650 mg PO Q8H PRN DISCOMFORT/TEMP 06/14/24 05/26/25 >101 albuterol sulfate 90 mcg/actuation 1 inh inhalation Q8H PRN Wheezing 06/14/24 05/26/25 aerosol inhaler allopurinol 200 mg tablet 200 mg PO DAILY 06/14/24 05/26/25 apixaban 5 mg tablet 5 mg PO BID 06/14/24 05/26/25 aspirin 81 mg tablet,delayed 81 mg PO DAILY 06/14/24 05/26/25 release (Adult Aspirin Regimen) atorvastatin 80 mg tablet 80 mg PO DAILY 06/14/24 05/26/25 cholecalciferol (vitamin D3) 1,250 1,250 mcg PO Q28D 06/14/24 05/26/25 mcg (50,000 unit) capsule (Optimal D3) dextrose 40 % oral gel 10 g PO Q15M PRN Hypoglycemia 06/14/24 05/26/25 docusate sodium 100 mg capsule 100 mg PO BID PRN Constipation 06/14/24 05/26/25 epinephrine 0.3 mg/0.3 mL 0.3 mg IM Q10M PRN Anaphylaxis 06/14/24 05/26/25 injection syringe fluoride (sodium) 1.1 % dental 1 appl dental BEDTIME 06/14/24 05/26/25 paste (PreviDent 5000 Booster Plus) gabapentin 100 mg capsule 200 mg PO BEDTIME 06/14/24 05/26/25 guaifenesin 600 mg tablet, 600 mg PO Q12H 06/14/24 05/26/25 extended release 12 hr metoprolol succinate 25 mg 12.5 mg PO DAILY 06/14/24 05/26/25 tablet,extended release 24 hr naloxone 0.4 mg/mL injection 0.4 mg subcut Q2M PRN OPIOD 06/14/24 05/26/25 solution OVERDOSE polyethylene glycol 3350 17 17 g PO Q12H PRN Constipation 06/14/24 05/26/25 gram/dose oral powder potassium chloride 10 mEq 10 meq PO DAILY 06/14/24 05/26/25 capsule,extended release tamsulosin 0.4 mg capsule 0.4 mg PO DAILY 06/14/24 05/26/25 thiamine HCl (vitamin B1) 100 mg 100 mg PO DAILY 06/14/24 05/26/25 tablet ascorbic acid (vitamin C) 500 mg 500 mg PO DAILY 05/02/25 05/26/25 tablet cyanocobalamin (vitamin B-12) 500 500 mcg PO DAILY 05/02/25 05/26/25 mcg tablet ferrous sulfate 325 mg (65 mg 325 mg PO DAILY 05/02/25 05/26/25 iron) tablet fluticasone furoate 200 1 inh inhalation DAILY 05/02/25 05/26/25 mcg/actuation blister powder for inhalation (Arnuity Ellipta) fluticasone propionate 50 1 spray intranasal DAILY 05/02/25 05/26/25 mcg/actuation nasal spray,suspension ipratropium 0.5 mg-albuterol 3 mg 3 ml inhalation Q6H PRN Cough 05/02/25 05/26/25 (2.5 mg base)/3 mL nebulization soln lidocaine 4 % topical patch 1 patch topical DAILY 05/02/25 05/26/25 montelukast 5 mg chewable tablet 5 mg PO BEDTIME 05/02/25 05/26/25 torsemide 20 mg tablet 40 mg PO DAILY 05/02/25 05/26/25 Allergies Allergy/AdvReac Type Severity Reaction Status Date / Time Penicillins Allergy Mild Unknown Verified 05/25/25 21:45 Review of Systems Review of Systems: Yes Unobtainable due to mental status PMFSH Past Medical History Medical History Pilonidal cyst Surgical History Hx of melanoma excision (~2016) Hx of appendectomy (~1954) Hx of lithotripsy (~11/2021) Hx of cardiac pacemaker (~08/2021) Family History Family History Sister FH: ovarian cancer Social History Social History Patient Tobacco Use Status: Tobacco use Unknown Smoked in Last 30 Days: No Use of substances other than those prescribed or required for medical reasons: No Advance Directives: No Advance Directives Information Provided: No Do you have a plan to hurt others: No Plan Physical Exam ED Exam Exam: GENERAL: Chronically ill-appearing, pale, somnolent, localizes to pain, responds with the incoherence sounds, GCS 8. SKIN: Pale, warm, dry, no rashes noted. HEENT: Normocephalic, atraumatic, no stridor, posterior oropharynx nonerythematous, EOMI. NECK: Soft, supple, full ROM, midline structures nontender, no step-offs, no deformities, no lymphadenopathy. CHEST: Heart regular rate and rhythm, no murmurs, symmetric chest rise and fall. PULMONARY: Clear to auscultation bilaterally, no labored breathing, no wheezes/rhales/ rhonchi, occasional bronchospastic cough. ABDOMINAL: Soft, protuberant, positive bowel sounds in all quadrants. : Deferred. MUSCULOSKELETAL: Normal tone, full range of motion, no deformities, 2+ pitting peripheral edema. NEURO: GCS 8, CN II through XII intact, moves arms equally. Vital Signs: Vital Signs - 24 hr 05/25/25 21:40 05/25/25 23:28 05/26/25 00:56 Temperature 98.2 F Pulse Rate 70 70 70 Respiratory Rate 21 H 15 20 Blood Pressure 144/48 H 136/60 169/47 H Pulse Oximetry 96 98 97 Oxygen Delivery Method Room Air Room Air Room Air 05/26/25 02:38 05/26/25 04:23 05/26/25 07:05 Temperature 97.8 F Pulse Rate 69 70 70 Respiratory Rate 13 12 17 Blood Pressure 136/49 L 97/60 97/60 Pulse Oximetry 97 97 97 Oxygen Delivery Method Room Air Room Air Room Air BMI result Body Mass Index 34.8 Medications Administered Discontinued Medications Generic Name Dose Route Start Last Admin Trade Name Freq PRN Reason Stop Dose Admin Acetaminophen 1,000 mg in 100 mls @ 400 mls/hr 05/26/25 04:07 05/26/25 04:35 Ofirmev IV 05/26/25 04:21 Infused ONCE ONE Infusion Medical Decision Making Medical Decision Making MDM Narrative: Patient presents today with a chief complaint of altered mental status. Differential diagnosis for AMS is incredibly broad and includes infection, intracranial process such as hemorrhage, stroke or mass, electrolyte abnormality, hypercarbia, hypoxia, toxic encephalopathy, among many others. Broad-based workup was initiated to further evaluate the etiology of patient's symptoms based on the above exam and history. Patient arrives to the emergency department with a GCS of 8. Very difficult to arouse but he does localize to pain and mumbles incoherently. Easily falls back asleep. I suspect that he may have either had too many medications tonight or maybe got medications that were not prescribed to him. He is maintaining his airway within normal blood gas. Vital signs are otherwise reassuring. CT does not show evidence of acute process. His blood work is normal. He is continuing to rest comfort and will continue to monitor. If his mentation does not improve, he may need admission for further care and evaluation. Patient now awake, aggressively alert and requesting discharge back to the [facility]. Refusing to answer many questions and does not know why he is in the hospital. He has baseline dementia. After several hours of being awake, I feel that he is stable for discharge back to the correction. Suspect polypharmacy. Differential Diagnosis Differential Diagnoses: The differential diagnosis associated with the presentation includes (as above) Admission/Observation Consideration of admission/observation: Escalation of care including admission/observation considered Lab Data MDM Lab Attestation statement: I reviewed the patient's lab results. 05/25/25 22:04 05/25/25 22:04 Labs: Lab Results 05/25/25 05/25/25 05/25/25 Range/Units 22:01 22:04 23:28 WBC 8.1 (4.8-10.8) X10*3/uL RBC 3.86 L (4.60-5.80) X10*6/uL Hgb 13.1 L (14.0-18.0) g/dl Hct 38.4 L (42.0-52.0) % MCV 99.5 H (80.0-98.0) fL MCH 33.9 H (27.0-33.0) pg MCHC 34.1 (31.0-36.0) g/dl RDW 13.9 (11.0-16.0) % Plt Count 180 (160-400) X10*3/uL MPV 11.5 (9.4-12.4) fL Immature Gran % (Auto) 0.6 H (0.0-0.4) % Neut % (Auto) 68.7 (45-73) % Lymph % (Auto) 17.0 L (20-40) % [place] % (Auto) 10.4 (2-11) % Eos % (Auto) 2.8 (0-4) % Baso % (Auto) 0.5 (0-2) % Lymph # (Auto) 1.4 (1.2-4.9) X10*3/uL [place] # (Auto) 0.8 (0.1-1.2) X10*3/uL Eos # (Auto) 0.2 (0.0-0.4) X10*3/uL Baso # (Auto) 0.0 (0.0-0.2) X10*3/uL Abs Immat Gran (auto) 0.05 H (0.00-0.03) X10*3/uL Absolute Neuts (auto) 5.6 (2.0-8.3) x10*3/uL Absolute Nucleated RBC 0.000 (0.0-0.012) X10*3/uL Nucleated RBC % (auto) 0.0 (0.0-0.2) /100WBC PT 23.1 H (10.9-12.4) SEC INR 2.0 H (0.9-1.1) O2 Saturation 96.0 % ABG pH at Pt Temp 7.47 H (7.35-7.45) ABG pCO2 at Pt Temp 44 (32-45) mmHg ABG pO2 at Pt Temp 82 L (83-108) mmHg ABG HCO3 32 H (22-26) mmol/L ABG Base Excess (Actual) 7.7 mmol/L Sodium 136 (135-145) mmol/L Potassium 3.7 (3.3-5.1) mmol/L Chloride 101 (96-108) mmol/L Carbon Dioxide 27 (22-29) mmol/L Anion Gap 12 (12-20) BUN 28 H (9-16) mg/dL Creatinine 1.12 (0.5-1.4) mg/dL Estim Creat Clear Calc 64.4 Estimated GFR > 60 Random Glucose 241 H (60-115) mg/dL Lactic Acid 1.7 (0.5-2.0) mmol/L Calcium 8.7 (8.4-10.2) mg/dL Magnesium 1.7 (1.6-2.6) mg/dL Total Bilirubin 0.4 (0.0-1.0) mg/dL AST 30 (5-37) U/L ALT 29 (0-40) U/L Alkaline Phosphatase 98 (39-117) U/L Troponin I High Sens 128.8 H* (<3.5-35.0) ng/L NT-Pro-B Natriuret Pep 1310.2 H (<300) pg/mL Total Protein 6.7 (6.5-8.0) g/dL Albumin 3.7 (3.5-5.0) g/dL Urine Color Yellow Urine Appearance Clear Urine pH 5.0 (5.0-9.0) Ur Specific [place] 1.015 (1.005-1.025) Urine Protein Negative (Neg-Trace) mg/dL Urine Glucose (UA) Negative (Negative) mg/dL Urine Ketones Negative (Negative) mg/dL Urine Blood Large (3+) H (Negative) Urine Nitrite Negative (Negative) Ur Leukocyte Esterase Negative (Negative) Urine RBC >20 H (0-2) /HPF Urine WBC 0-5 (0-5) /HPF Ur Squamous Epith Cells 0-2 (0-2) /HPF Urine Bacteria None Seen (None Seen) Hyaline Casts 0-2 (0-2) /LPF Urine Opiates Screen Not Detected (Not Detect) Ur Buprenorphine Scrn Not Detected (Not Detect) ng/mL Ur Oxycodone Screen Not Detected (Not Detect) ng/mL Urine Methadone Screen Not Detected (Not Detect) ng/mL Urine Fentanyl Screen Not Detected (Not Detect) Ur Barbiturates Screen Not Detected (Not Detect) Ur Phencyclidine Scrn Not Detected (Not Detect) Ur Amphetamines Screen Not Detected (Not Detect) U Benzodiazepines Scrn Not Detected (Not Detect) Urine Cocaine Screen Not Detected (Not Detect) U Marijuana (THC) Screen Not Detected (Not Detect) Ethyl Alcohol < 10 mg/dL COVID-19 (VINNIE) Negative (Negative) COVID-19 Clin Com See Note Influenza Type A (FLAVIO) Negative (Negative) Influenza Type B (FLAVIO) Negative (Negative) Influenza A & B Note See Note 05/26/25 Range/Units 02:40 WBC (4.8-10.8) X10*3/uL RBC (4.60-5.80) X10*6/uL Hgb (14.0-18.0) g/dl Hct (42.0-52.0) % MCV (80.0-98.0) fL MCH (27.0-33.0) pg MCHC (31.0-36.0) g/dl RDW (11.0-16.0) % Plt Count (160-400) X10*3/uL MPV (9.4-12.4) fL Immature Gran % (Auto) (0.0-0.4) % Neut % (Auto) (45-73) % Lymph % (Auto) (20-40) % [place] % (Auto) (2-11) % Eos % (Auto) (0-4) % Baso % (Auto) (0-2) % Lymph # (Auto) (1.2-4.9) X10*3/uL [place] # (Auto) (0.1-1.2) X10*3/uL Eos # (Auto) (0.0-0.4) X10*3/uL Baso # (Auto) (0.0-0.2) X10*3/uL Abs Immat Gran (auto) (0.00-0.03) X10*3/uL Absolute Neuts (auto) (2.0-8.3) x10*3/uL Absolute Nucleated RBC (0.0-0.012) X10*3/uL Nucleated RBC % (auto) (0.0-0.2) /100WBC PT (10.9-12.4) SEC INR (0.9-1.1) O2 Saturation % ABG pH at Pt Temp (7.35-7.45) ABG pCO2 at Pt Temp (32-45) mmHg ABG pO2 at Pt Temp (83-108) mmHg ABG HCO3 (22-26) mmol/L ABG Base Excess (Actual) mmol/L Sodium (135-145) mmol/L Potassium (3.3-5.1) mmol/L Chloride (96-108) mmol/L Carbon Dioxide (22-29) mmol/L Anion Gap (12-20) BUN (9-16) mg/dL Creatinine (0.5-1.4) mg/dL Estim Creat Clear Calc Estimated GFR Random Glucose (60-115) mg/dL Lactic Acid (0.5-2.0) mmol/L Calcium (8.4-10.2) mg/dL Magnesium (1.6-2.6) mg/dL Total Bilirubin (0.0-1.0) mg/dL AST (5-37) U/L ALT (0-40) U/L Alkaline Phosphatase (39-117) U/L Troponin I High Sens 128.0 H* (<3.5-35.0) ng/L NT-Pro-B Natriuret Pep (<300) pg/mL Total Protein (6.5-8.0) g/dL Albumin (3.5-5.0) g/dL Urine Color Urine Appearance Urine pH (5.0-9.0) Ur Specific [place] (1.005-1.025) Urine Protein (Neg-Trace) mg/dL Urine Glucose (UA) (Negative) mg/dL Urine Ketones (Negative) mg/dL Urine Blood (Negative) Urine Nitrite (Negative) Ur Leukocyte Esterase (Negative) Urine RBC (0-2) /HPF Urine WBC (0-5) /HPF Ur Squamous Epith Cells (0-2) /HPF Urine Bacteria (None Seen) Hyaline Casts (0-2) /LPF Urine Opiates Screen (Not Detect) Ur Buprenorphine Scrn (Not Detect) ng/mL Ur Oxycodone Screen (Not Detect) ng/mL Urine Methadone Screen (Not Detect) ng/mL Urine Fentanyl Screen (Not Detect) Ur Barbiturates Screen (Not Detect) Ur Phencyclidine Scrn (Not Detect) Ur Amphetamines Screen (Not Detect) U Benzodiazepines Scrn (Not Detect) Urine Cocaine Screen (Not Detect) U Marijuana (THC) Screen (Not Detect) Ethyl Alcohol mg/dL COVID-19 (VINNIE) (Negative) COVID-19 Clin Com Influenza Type A (FLAVIO) (Negative) Influenza Type B (FLAVIO) (Negative) Influenza A & B Note Independent Interpretation I performed an independent interpretation of an: EKG, Plain X-Ray and CT Scan Interpretation: My independent interpretation of the ECG reveals ventricular paced rhythm with rate of 70, leftward axis, QTC 542 QRS 172, no ST elevations or depressions to suggest ischemic changes, relatively unchanged from previous on 05/02/2025. CT head shows no acute bleeding/injury. Radiology Impression Discussion of test interpretation with radiology: I have reviewed the radiologist's reading. Independent Historian Clinical information obtained from an independent historian. History obtained from or confirmed by: EMS External Record Review External record reviewed: Inpatient record and Outpatient record Chronic Conditions Patient?s care impacted by: Diabetes, Hypertension and Other (CKD, CHF) Discharge Plan Discharge Clinical Impression: Acute encephalopathy Patient Disposition: Xfer SNF Transfer Details: BACK TO [facility] Instructions: Encephalopathy (DC) Additional Instructions: Workup today has been reassuring. CT of the brain, chest x-ray, EKG, blood work all relatively baseline. Continue to watch for changes in mentation. Return to the ER with any signs of seizure activity, worsening encephalopathy, any concerning symptoms such as fever or chest pain or severe headache. Prescriptions: No Action cyanocobalamin (vitamin B-12) 500 mcg Tablet 500 mcg PO DAILY montelukast 5 mg Tablet,Chewable 5 mg PO BEDTIME lidocaine 4 % Adhesive Patch,Medicated 1 patch TOPICAL DAILY Protocol: Apply to: Apply to: LOWER BACK torsemide 20 mg Tablet 40 mg PO DAILY fluticasone furoate [Arnuity Ellipta] 200 mcg/actuation Blister With Device 1 inh INHALATION DAILY ferrous sulfate 325 mg (65 mg iron) Tablet 325 mg PO DAILY fluticasone propionate 50 mcg/actuation [place],Suspension 1 spray INTRANASAL DAILY Rx Instructions: administer into each nostril ascorbic acid (vitamin C) 500 mg Tablet 500 mg PO DAILY ipratropium-albuterol [DuoNeb] 0.5 mg-3 mg(2.5 mg base)/3 mL Solution For Nebulization 3 ml INHALATION Q6H PRN (Reason: Cough) cholecalciferol (vitamin D3) [Optimal D3] 1,250 mcg (50,000 unit) capsule 1,250 mcg PO Q28D gabapentin 100 mg capsule 200 mg PO BEDTIME docusate sodium 100 mg capsule 100 mg PO BID PRN (Reason: Constipation) polyethylene glycol 3350 17 gram/dose powder 17 g PO Q12H PRN (Reason: Constipation) fluoride (sodium) [PreviDent 5000 Booster Plus] 1.1 % paste 1 appl dental BEDTIME epinephrine 0.3 mg/0.3 mL syringe 0.3 mg IM Q10M PRN (Reason: Anaphylaxis) Rx Instructions: for 2 doses guaifenesin 600 mg tablet extended release 12hr 600 mg PO Q12H metoprolol succinate 25 mg tablet extended release 24 hr 12.5 mg PO DAILY Protocol: Hold for SBP< HOLD for SBP < : 100 thiamine HCl (vitamin B1) 100 mg tablet 100 mg PO DAILY atorvastatin 80 mg tablet 80 mg PO DAILY potassium chloride 10 mEq capsule, extended release 10 meq PO DAILY apixaban 5 mg tablet 5 mg PO BID acetaminophen 325 mg capsule 650 mg PO Q8H PRN (Reason: DISCOMFORT/TEMP >101) naloxone 0.4 mg/mL solution 0.4 mg subcut Q2M PRN (Reason: OPIOD OVERDOSE) Rx Instructions: NTExceed 10 mg total dose/episode tamsulosin 0.4 mg capsule 0.4 mg PO DAILY allopurinol 200 mg tablet 200 mg PO DAILY aspirin [Adult Aspirin Regimen] 81 mg tablet,delayed release (DR/EC) 81 mg PO DAILY dextrose 40 % gel 10 g PO Q15M PRN (Reason: Hypoglycemia) Rx Instructions: until symptoms of low blood sugar are controlled albuterol sulfate 90 mcg/actuation HFA aerosol inhaler 1 inh inhalation Q8H PRN (Reason: Wheezing) Referrals: DR ALEJO CASTILLO: DAMIEN MICHAEL [Other] Referral Note: PER [facility] [employer] [Outside] Interventions: ED Discharge Assessment Last Done: 05/26/25 14:45 Discharge Date/Time: 05/26/25 14:45 Print Language: Marshallese
--- NOTE | 2025-05-25 21:48 | ECG_ITS ---
Test Reason : AMS Blood Pressure : */* mmHG Vent. Rate : 70 BPM Atrial Rate : 300 BPM P-R Int : * ms QRS Dur : 172 ms QT Int : 502 ms P-R-T Axes : 85 -84 94 degrees QTcB Int : 542 ms Atrial flutter with Ventricular-paced rhythm Abnormal ECG When compared with ECG of 02-May-2025 05:06, No significant change was found Referred By: Aishwarya Velez Electronically Signed By: RODOLFO FITZGERALD MD
[2025-05-25 21:50] VITALS: O2SAT 95
[2025-05-25 22:06] LABS: ABG HCO3 32 mmol/L (22-26); ABG O2 % Saturation 96.0 %
[2025-05-25 22:16] LABS: MANUAL DIFF FLAG NO
[2025-05-25 22:17] LABS: Hematocrit 38.4 % (42.0-52.0); Hemoglobin 13.1 g/dl (14.0-18.0); Imm Gran Abs Auto 0.05 X10*3/uL (0.00-0.03); Imm Gran Pct Auto 0.6 % (0.0-0.4); Lymphocytes Absolute Auto 1.4 X10*3/uL (1.2-4.9); Mean Corpuscular HGB Conc 34.1 g/dl (31.0-36.0); Mean Corpuscular Hemoglobin 33.9 pg (27.0-33.0); Mean Corpuscular Volume 99.5 fL (80.0-98.0); NRBC Abs Auto 0.000 X10*3/uL (0.0-0.012); NRBC Pct Auto 0.0 /100WBC (0.0-0.2); Platelet Count 180 X10*3/uL (160-400); Red Blood Count 3.86 X10*6/uL (4.60-5.80); White Blood Count 8.1 X10*3/uL (4.8-10.8)
--- OUTSIDE RECORDS SUMMARY | 2025-05-25 22:20 | XMS_ITS | Encounter Summary ---
Author Organization [facility] Address [address] [place] [address] Care Team Providers Care Tailing Machine Operator Name Role Phone Homar Watson MD Primary Care Provider [phone] Encounter Details Date Type Department Care Team (Late st Contact Info) Description 03/13/2025 Lab Requisition [facility] - Main Lab [address] [facility] [place] [address] Homar Watson MD [address] [place] [address] Essential (primary) hypertension Social History [...] LAB CHEMISTRY METHOD 03/13/2025 11:23 AM EDT [facility] Potassium 4.1 3.5 - 5.5 mmol/L LAB CHEMISTRY METHOD 03/13/2025 11:23 AM EDT [facility] Chloride 99 96 - 110 mmol/L LAB CHEMISTRY METHOD 03/13/2025 11:23 AM EDT [facility] CO2 34(H) 21 - 32 mmol/L LAB CHEMISTRY METHOD 03/13/2025 11:23 AM [facility] Anion Gap 5 3 - 11 LAB CHEMISTRY METHOD 03/13/2025 11:23 AM [facility] Glucose 135(H) 70 - 100 mg/dL LAB CHEMISTRY METHOD 03/13/2025 11:23 AM [facility] BUN 19 5 - 25 mg/dL LAB CHEMISTRY METHOD 03/13/2025 11:23 AM [facility] Creatinine 1.17 0.70 - 1.30 mg/dL LAB CHEMISTRY METHOD 03/13/2025 11:23 AM [facility] eGFR 63 >=60 mL/min/1. 73m2 LAB CHEMISTRY METHOD 03/13/2025 11:23 AM [facility] Comment:Calculation based on the Chronic Kidney Disease Epidemiology Collaboration (CKD-EPI) equation refit without adjustment for race. BUN/Creatinine Ratio 16.2 LAB CHEMISTRY METHOD 03/13/2025 11:23 AM [facility] Calcium 9.1 8.5 - 10.5 mg/dL LAB CHEMISTRY METHOD 03/13/2025 11:23 AM [facility] Blood Venous blood specimen / Unknown Venipuncture / Unknown 03/13/2025 5:59 AM EDT 03/13/2025 10:16 AM EDT us Homar Watson MD LAB BLOOD ORDERABLES Final R esult [facility] [address] [place] [address], * (ABNORMAL) Complete blood count (03/13/2025 5:59 AM EDT) WBC 6.9 4.8 - 10.8 K/mcL LAB HEMETOLOGY METHOD 03/13/2025 10:58 AM [facility] RBC 3.90(L) 4.50 - 5.50 M/mcL LAB HEMETOLOGY METHOD 03/13/2025 10:58 AM [facility] Hemoglobin 13.0(L) 13.5 - 17.5 g/dL LAB HEMETOLOGY METHOD 03/13/2025 10:58 AM [facility] Hematocrit 41.6(L) 42.0 - 54.0 % LAB HEMETOLOGY METHOD 03/13/2025 10:58 AM [facility] MCV 106.1(H) 79.0 - 98.0 FL LAB HEMETOLOGY METHOD 03/13/2025 10:58 AM [facility] MCH 33.2(H) 27.0 - 32.0 pcg LAB HEMETOLOGY METHOD 03/13/2025 10:58 AM [facility] MCHC 31.3(L) 32.0 - 37.0 g/dL LAB HEMETOLOGY METHOD 03/13/2025 10:58 AM [facility] RDW 14.3 11.0 - 15.0 % LAB HEMETOLOGY METHOD 03/13/2025 10:58 AM [facility] Platelets 191 130 - 400 K/mcL LAB HEMETOLOGY METHOD 03/13/2025 10:58 AM [facility] MPV 12.4(H) 7.0 - 11.0 FL LAB HEMETOLOGY METHOD 03/13/2025 10:58 AM [facility] NRBC 0.0 <1.0 % LAB HEMETOLOGY METHOD 03/13/2025 10:58 AM [facility] NRBC Absolute 0.00 <0.10 K/mcL LAB HEMETOLOGY METHOD 03/13/2025 10:58 AM [facility] Blood Venous blood specimen / Unknown Venipuncture / Unknown 03/13/2025 5:59 AM EDT 03/13/2025 10:16 AM EDT us Homar Watson MD LAB BLOOD ORDERABLES Final R esult [facility] ([facility] [address] [place] [address], documented in this encounter Visit Diagnoses Diagnosis Essential (primary) hypertension Unspecified essential hypertension documented in this encounter Care Teams Tailing Machine Operator Relationship Specialty Start Date End Date Homar Watson MD [address] [place] [address] PCP - General Family Medicine 07/11/24 documented as of this encounter
--- OUTSIDE RECORDS SUMMARY | 2025-05-25 22:20 | XMS_ITS | Encounter Summary ---
Author Organization [facility] Address [address] [place] [address] Care Team Providers Care Clinical Quality Manager Name Role Phone Homar Watson MD Primary Care Provider [phone]- [phone] Encounter Details Date Type Department Care Team (Late st Contact Info) Description 08/06/2024 Lab Requisition [facility] - Main Lab [address] [facility] [employer] [place] [address] Homar Watson MD [address] [place] [address] Other prison (current) drug therapy Social History Tobacco Use [...] URINE Routine 08/05/2024 12:00 AM EST Other prison (current) drug therapy documented in this encounter [...] AM EST Performed at: 01 - [facility] [address] [place], [place] [id number] Home Therapy Clinician: Lavelle Johnson PhD, Phone: [phone] us Homar Watson MD LAB URINE ORDERABLES Final R esult [facility] documented in this encounter Visit Diagnoses Diagnosis Other prison (current) drug therapy documented in this encounter Care Teams Clinical Quality Manager Relationship Specialty Start Date End Date Homar Watson MD [address] [place] [address] PCP - General Family Medicine 07/11/24 documented as of this encounter
--- OUTSIDE RECORDS SUMMARY | 2025-05-25 22:20 | XMS_ITS | Encounter Summary ---
Author Organization [employer] Address [address] [place] [address] Care Team Providers Care Interactive Media Designer Name Role Phone Homar Watson MD Primary Care Provider [phone]- [phone] Encounter Details Date Type Department Care Team (Late st Contact Info) Description 02/17/2025 Lab Requisition [facility] - Main Lab [address] [place] [address] Homar Watson MD [address] [place] [address] Personal history of other diseases [...] LAB CHEMISTRY METHOD 02/17/2025 11:34 AM EDT [facility] Potassium 3.6 3.5 - 5.5 mmol/L LAB CHEMISTRY METHOD 02/17/2025 11:34 AM EDT [facility] Chloride 99 96 - 110 mmol/L LAB CHEMISTRY METHOD 02/17/2025 11:34 AM [facility] CO2 29 21 - 32 mmol/L LAB CHEMISTRY METHOD 02/17/2025 11:34 AM [facility] Anion Gap 10 3 - 11 LAB CHEMISTRY METHOD 02/17/2025 11:34 AM [facility] Glucose 173(H) 70 - 100 mg/dL LAB CHEMISTRY METHOD 02/17/2025 11:34 AM [facility] BUN 25 5 - 25 mg/dL LAB CHEMISTRY METHOD 02/17/2025 11:34 AM [facility] Creatinine 1.30 0.70 - 1.30 mg/dL LAB CHEMISTRY METHOD 02/17/2025 11:34 AM [facility] eGFR 56(L) >=60 mL/min/1. 73m2 LAB CHEMISTRY METHOD 02/17/2025 11:34 AM [facility] Comment:Calculation based on the Chronic Kidney Disease Epidemiology Collaboration (CKD-EPI) equation refit without adjustment for race. BUN/Creatinine Ratio 19.2 LAB CHEMISTRY METHOD 02/17/2025 11:34 AM [facility] Calcium 8.6 8.5 - 10.5 mg/dL LAB CHEMISTRY METHOD 02/17/2025 11:34 AM [facility] Blood Venous blood specimen / Unknown Venipuncture / Unknown 02/17/2025 7:17 AM EDT 02/17/2025 10:42 AM EDT us Homar Watson MD LAB BLOOD ORDERABLES Final R esult [facility] [address] [place] [address], * (ABNORMAL) Complete blood count (02/17/2025 7:17 AM EDT) WBC 12.6(H) 4.8 - 10.8 K/mcL LAB HEMETOLOGY METHOD 02/17/2025 11:21 AM [facility] RBC 3.70(L) 4.50 - 5.50 M/mcL LAB HEMETOLOGY METHOD 02/17/2025 11:21 AM [facility] Hemoglobin 12.9(L) 13.5 - 17.5 g/dL LAB HEMETOLOGY METHOD 02/17/2025 11:21 AM [facility] Hematocrit 39.5(L) 42.0 - 54.0 % LAB HEMETOLOGY METHOD 02/17/2025 11:21 AM [facility] MCV 106.5(H) 79.0 - 98.0 FL LAB HEMETOLOGY METHOD 02/17/2025 11:21 AM [facility] MCH 34.8(H) 27.0 - 32.0 pcg LAB HEMETOLOGY METHOD 02/17/2025 11:21 AM [facility] MCHC 32.7 32.0 - 37.0 g/dL LAB HEMETOLOGY METHOD 02/17/2025 11:21 AM [facility] RDW 14.5 11.0 - 15.0 % LAB HEMETOLOGY METHOD 02/17/2025 11:21 AM [facility] Platelets 181 130 - 400 K/mcL LAB HEMETOLOGY METHOD 02/17/2025 11:21 AM [facility] MPV 12.6(H) 7.0 - 11.0 FL LAB HEMETOLOGY METHOD 02/17/2025 11:21 AM [facility] NRBC 0.0 <1.0 % LAB HEMETOLOGY METHOD 02/17/2025 11:21 AM [facility] NRBC Absolute 0.00 <0.10 K/mcL LAB HEMETOLOGY METHOD 02/17/2025 11:21 AM EDT [facility] Blood Venous blood specimen / Unknown Venipuncture / Unknown 02/17/2025 7:17 AM EDT 02/17/2025 10:42 AM EDT Homar Watson MD LAB BLOOD ORDERABLES Final R esult [facility] [address] [place] [address], documented in this encounter Visit Diagnoses Diagnosis Personal history of other diseases of the respiratory system Anemia, unspecified documented in this encounter Care Teams Interactive Media Designer Relationship Specialty Start Date End Date Homar Watson MD [address] [place] [address] PCP - General Family Medicine 07/11/24 documented as of this encounter
--- OUTSIDE RECORDS SUMMARY | 2025-05-25 22:20 | XMS_ITS | Encounter Summary ---
Author Organization [employer] Address [address] [place] [address] Care Team Providers Care Rn New Graduate Name Role Phone Homar Watson MD Primary Care Provider Encounter Details Date Type Department Care Team (Late st Contact Info) Description 07/22/2024 Lab Requisition [facility] - Main Lab [address] [place] [address] Homar Watson MD [address] [place] [address] Elevated urine levels of drugs, [...] LAB CHEMISTRY METHOD 07/22/2024 3:17 PM EST [facility] Comment:Certain OTC medicati ons containing ephedrine, phenylephrine, pseudoephedrine and phenylpropanolamine can cause false positive results. Barbiturate Screen, Ur Negative Negative LAB CHEMISTRY METHOD 07/22/2024 3:17 PM EST [facility] Benzodiazepine Screen, Ur Negative Negative LAB CHEMISTRY METHOD 07/22/2024 3:17 PM EST [facility] Cocaine Screen, Ur Negative Negative LAB CHEMISTRY METHOD 07/22/2024 3:17 PM [facility] Opiate Screen, Ur Negative Negative LAB CHEMISTRY METHOD 07/22/2024 3:17 PM [facility] Cannabinoid (THC) Screen, Ur Negative Negative LAB CHEMISTRY METHOD 07/22/2024 3:17 PM EST [facility] Comment:Specimens from patie nts taking pantoprazole sodium (Protonix) have been shown to produce false positive results. Oxycodone Screen, Ur Negative Negative LAB CHEMISTRY METHOD 07/22/2024 3:17 PM [facility] Fentanyl, Ur Negative Negative LAB CHEMISTRY METHOD 07/22/2024 3:17 PM [facility] Urine Urine specimen obtained by clean catch procedure / Unknown 07/21/2024 11:00 AM EST 07/22/2024 11:41 AM EST [facility] - 07/22/2024 3:17 PM EST [...] MD LAB URINE ORDERABLES Final R esult [facility]) [facility] [address] [place] [address], documented in this encounter Visit Diagnoses Diagnosis Elevated urine levels of drugs, medicaments and biological substances Encounter for blood-alcohol and blood-drug test documented in this encounter Care Teams Rn New Graduate Relationship Specialty Start Date End Date Homar Watson MD [address] [place] [address] PCP - General Family Medicine 07/11/24 documented as of this encounter
--- OUTSIDE RECORDS SUMMARY | 2025-05-25 22:20 | XMS_ITS | Encounter Summary ---
Author Organization [employer] Address [address] [place] [address] Care Team Providers Care Web Project Manager Name Role Phone Homar Watson MD Primary Care Provider [phone]- [phone] Encounter Details Date Type Department Care Team (Late st Contact Info) Description 10/22/2024 Lab Requisition [facility] - Main Lab [address] [facility] [place] [address] Homar Watson MD [address] [place] [address] Drug abuse counseling and surveillance [...] Negative LAB CHEMISTRY METHOD 10/22/2024 10:02 AM [facility] Comment:Certain OTC medicati ons containing ephedrine, phenylephrine, pseudoephedrine and phenylpropanolamine can cause false positive results. Barbiturate Screen, Ur Negative Negative LAB CHEMISTRY METHOD 10/22/2024 10:02 AM EST [facility] Benzodiazepine Screen, Ur Negative Negative LAB CHEMISTRY METHOD 10/22/2024 10:02 AM [facility] Cocaine Screen, Ur Negative Negative LAB CHEMISTRY METHOD 10/22/2024 10:02 AM [facility] Opiate Screen, Ur Negative Negative LAB CHEMISTRY METHOD 10/22/2024 10:02 AM [facility] Cannabinoid (THC) Screen, Ur Negative Negative LAB CHEMISTRY METHOD 10/22/2024 10:02 AM [facility] Comment:Specimens from patie nts taking pantoprazole sodium (Protonix) have been shown to produce false positive results. Fentanyl, Ur Negative Negative LAB CHEMISTRY METHOD 10/22/2024 10:02 AM [facility] Oxycodone Screen, Ur Negative Negative LAB CHEMISTRY METHOD 10/22/2024 10:02 AM [facility] Urine Urine specimen obtained by clean catch procedure / Unknown Non-blood Collection / Unknown 10/22/2024 1:45 AM EST 10/22/2024 9:12 AM EST [facility] - 10/22/2024 10:02 AM EST Assay [...] MD LAB URINE ORDERABLES Final R esult [facility] [address] [place] [address], documented in this encounter Visit Diagnoses Diagnosis Drug abuse counseling and surveillance of drug abuser documented in this encounter Care Teams Web Project Manager Relationship Specialty Start Date End Date Homar Watson MD [address] [place] [address] PCP - General Family Medicine 07/11/24 documented as of this encounter
--- OUTSIDE RECORDS SUMMARY | 2025-05-25 22:20 | XMS_ITS | Encounter Summary ---
Author Organization [employer] Address [address] [place] [address] Care Team Providers Care Director Of Psychology Name Role Phone Homar Watosn MD Primary Care Provider [phone] Encounter Details Date Type Department Care Team (Late st Contact Info) Description 03/18/2025 Lab Requisition [facility] - Main Lab [address] [facility] [place] [address] Homar Watson MD [address] [place] [address] Other dietary vitamin B12 deficiency [...] Hold for add-ons. 03/18/2025 11:01 AM EDT [facility] Comment:Auto resulted. Blood Venous blood specimen / Unknown Venipuncture / Unknown 03/18/2025 8:16 AM EDT 03/18/2025 9:07 AM EDT us Homar Watson MD LAB BLOOD ORDERABLES Final R esult [facility] [address] [place] [address], * SST tube (03/18/2025 8:16 AM EDT) Extra Tube Hold for add-ons. 03/18/2025 11:01 AM EDT [facility] Comment:Auto resulted. Blood Venous blood specimen / Unknown Venipuncture / Unknown 03/18/2025 8:16 AM EDT 03/18/2025 9:07 AM EDT Homar Watson MD LAB BLOOD ORDERABLES Final R esult Performing Organization Address City/[facility]/ZIP Co de Phone Number [facility] [address] [place] [address], [place] [phone] * SST tube (03/18/2025 8:16 AM EDT) Pathologist [facility] Extra Tube Hold for add-ons. 03/18/2025 11:01 AM EDT [facility] Comment:Auto resulted. Blood Venous blood specimen / Unknown Venipuncture / Unknown 03/18/2025 8:16 AM EDT 03/18/2025 9:07 AM EDT Homar Watson MD LAB BLOOD ORDERABLES Final R esult Performing Organization Address [facility] Co de Phone Number [facility] [address] [place] [address], [place] [phone] * Rheumatoid factor (03/18/2025 8:16 AM EDT) Rheumatoid Factor <10.0 <15.0 I Unit/mL LAB CHEMISTRY METHOD 03/18/2025 10:46 AM EDT [facility] Blood Venous blood specimen / Unknown Venipuncture / Unknown 03/18/2025 8:16 AM EDT 03/18/2025 9:07 AM EDT us Homar Watson MD LAB BLOOD ORDERABLES Final R esult Performing Organization Address City/[facility]/ZIP Co de Phone Number [facility] [address] [place] [address], [place] [phone] * Anti-scleroderma antibody (03/18/2025 8:16 AM EDT) Scleroderma SCL - 70 Negative Negative LAB CHEMISTRY METHOD 03/22/2025 1:11 PM EDT [facility] Blood Venous blood specimen / Unknown Venipuncture / Unknown 03/18/2025 8:16 AM EDT 03/18/2025 9:07 AM EDT Homar Watson MD LAB BLOOD ORDERABLES Final R esult Performing Organization Address [facility]/ZIP Co de Phone Number [facility] [address] [place] [address], * Sjogrens antibodies, SSA and SSB (03/18/2025 8:16 AM EDT) Sjogren's SS-A (Ro) Ab Quant 1 <20 units LAB CHEMISTRY METHOD 03/22/2025 1:11 PM EDT [facility] Sjogren's SS-A (Ro) Ab Negative Negative LAB CHEMISTRY METHOD 03/22/2025 1:11 PM EDT [facility] Sjogren's SS-B (La) Ab Quant 3 <20 units LAB CHEMISTRY METHOD 03/22/2025 1:11 PM EDT [facility] Sjogren's SS-B (La) Ab Negative Negative LAB CHEMISTRY METHOD 03/22/2025 1:11 PM EDT [facility] Blood Venous blood specimen / Unknown Venipuncture / Unknown 03/18/2025 8:16 AM EDT 03/18/2025 9:07 AM EDT Homar Watson MD LAB BLOOD ORDERABLES Final R esult Performing Organization Address City/[facility]/ZIP Co de Phone Number [facility] [address] [place] [address], * Cyclic citrullinated peptide, IgG and IgA (03/18/2025 8:16 AM EDT) [facility] CCP AB Quant 7 <20 Units LAB CHEMISTRY METHOD 03/25/2025 10:29 AM EDT [facility] Cyclic Citrullinated Peptide (CCP) Antibody Negative Negative LAB CHEMISTRY METHOD 03/25/2025 10:29 AM EDT [facility] Blood Venous blood specimen / Unknown Venipuncture / Unknown 03/18/2025 8:16 AM EDT 03/18/2025 9:07 AM EDT us Homar Watson MD LAB BLOOD ORDERABLES Final R esult Performing Organization Address City/[facility]/ZIP Co de Phone Number [facility] [address] [place] [address], [place] [phone] * ROGER IFA with titer and pattern (03/18/2025 8:16 AM EDT) [facility] ROGER Negative Negative 03/19/2025 10:12 AM EDT [facility] Blood Venous blood specimen / Unknown Venipuncture / Unknown 03/18/2025 8:16 AM EDT 03/18/2025 9:07 AM EDT Homar Watson MD LAB BLOOD ORDERABLES Final R esult [facility] [address] [place] [address], [place] [phone] * Vitamin B12 (03/18/2025 8:16 AM EDT) [facility] Vitamin B-12 772 250 - 900 pcg/mL LAB CHEMISTRY METHOD 03/18/2025 11:08 AM EDT [facility] Blood Venous blood specimen / Unknown Venipuncture / Unknown 03/18/2025 8:16 AM EDT 03/18/2025 9:07 AM EDT Homar Watson MD LAB BLOOD ORDERABLES Final R esult Performing Organization Address City/[facility]/ZIP Co de Phone Number [facility] [address] [place] [address], [place] [phone] * Folate (03/18/2025 8:16 AM EDT) Folate 9.6 2.8 - 17.0 ng/ml LAB CHEMISTRY METHOD 03/18/2025 11:08 AM EDT [facility] Blood Venous blood specimen / Unknown Venipuncture / Unknown 03/18/2025 8:16 AM EDT 03/18/2025 9:07 AM EDT Homar Watson MD LAB BLOOD ORDERABLES Final R esult Performing Organization Address [facility] Co de Phone Number [facility] [address] [place] [address], [place] [phone] * Iron and TIBC (03/18/2025 8:16 AM EDT) [facility] Iron 66 50 - 160 mcg/dL LAB CHEMISTRY METHOD 03/18/2025 10:46 AM EDT [facility] TIBC 320 250 - 450 mcg/dL LAB CHEMISTRY METHOD 03/18/2025 10:46 AM EDT [facility] Iron Saturation 21 20 - 50 % LAB CHEMISTRY METHOD 03/18/2025 10:46 AM EDT [facility] Blood Venous blood specimen / Unknown Venipuncture / Unknown 03/18/2025 8:16 AM EDT 03/18/2025 9:07 AM EDT Homar Watson MD LAB BLOOD ORDERABLES Final R esult Performing Organization Address City/[facility]/ZIP Co de Phone Number [facility] [address] [place] [address], [place] [phone] * Ferritin (03/18/2025 8:16 AM EDT) Ferritin 156 26 - 388 ng/mL LAB CHEMISTRY METHOD 03/18/2025 11:08 AM EDT [facility] Blood Venous blood specimen / Unknown Venipuncture / Unknown 03/18/2025 8:16 AM EDT 03/18/2025 9:07 AM EDT Homar Watson MD LAB BLOOD ORDERABLES Final R esult [facility] [address] [place] [address], [place] [phone] documented in this encounter Visit Diagnoses Diagnosis Other dietary vitamin B12 deficiency anemia Anemia, unspecified documented in this encounter Care Teams Director Of Psychology Relationship Specialty Start Date End Date Homar Watson MD [address] [place] [address] PCP - General Family Medicine 07/11/24 documented as of this encounter
--- OUTSIDE RECORDS SUMMARY | 2025-05-25 22:20 | XMS_ITS | Encounter Summary ---
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) drug therapy URINALYSIS WITH REFLEX MICROSCOPIC AND CULTURE Routine 10/20/2024 2:00 PM EST Other mcc (current) drug therapy documented in this encounter Results * Urinalysis with reflex microscopic and culture (10/20/2024 2:00 PM EST) Specific [place] Urine 1.012 1.003 - 1.030 LAB URINALYSIS - AUTOMATED METHOD 10/21/2024 12:[address] [facility] pH, Urine 5.5 5.0 - 8.0 pH LAB URINALYSIS - AUTOMATED METHOD 10/21/2024 12:[address] [facility] Leukocytes, Urine Negative Negative LAB URINALYSIS - AUTOMATED METHOD 10/21/2024 12:58 PM [facility] Nitrite, Urine Negative Negative LAB URINALYSIS - AUTOMATED METHOD 10/21/2024 12:58 PM [facility] Protein, Urine Negative <=Trace mg/dL LAB URINALYSIS - AUTOMATED METHOD 10/21/2024 12:58 PM [facility] Glucose, Urine Negative Negative mg/dL LAB URINALYSIS - AUTOMATED METHOD 10/21/2024 12:58 PM [facility] Ketones, Urine Negative Negative mg/dL LAB URINALYSIS - AUTOMATED METHOD 10/21/2024 12:58 PM [facility] Urobilinogen, Urine 0.2 0.2 - 1.0 mg/dL LAB URINALYSIS - AUTOMATED METHOD 10/21/2024 12:58 PM [facility] Bilirubin, Urine Negative Negative LAB URINALYSIS - AUTOMATED METHOD 10/21/2024 12:58 PM [facility] Blood, Urine Negative Negative LAB URINALYSIS - AUTOMATED METHOD 10/21/2024 12:58 PM [facility] Urine Urine specimen obtained by clean catch procedure / Unknown Non-blood Collection / Unknown 10/20/2024 2:00 PM EST 10/21/2024 12:18 PM EST us Homar Watson MD LAB URINE ORDERABLES Final R esult [facility] [address] [place] [address], [place] [phone] documented in this encounter Visit Diagnoses Diagnosis 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
--- OUTSIDE RECORDS SUMMARY | 2025-05-25 22:20 | XMS_ITS | Encounter Summary ---
Author Organization [employer] Address [address] [place] [address] Care Team Providers Care Hospital Superintendent Name Role Phone Homar Watson MD Primary Care Provider [phone] Encounter Details Date Type Department Care Team (Late st Contact Info) Description 10/15/2024 Lab Requisition [facility] - Main Lab [address] [facility] [place] [address] Homar Watson MD [facility] [place] [address] Chronic systolic (congestive) heart failure [...] natriuretic peptide (10/15/2024 6:14 AM EST) Pathologist [facility] BNP 113(H) <=100 pcg/mL LAB CHEMISTRY METHOD 10/15/2024 12:22 PM [facility] Blood Venous blood specimen / Unknown Venipuncture / Unknown 10/15/2024 6:14 AM EST 10/15/2024 10:50 AM EST us Homar Watson MD LAB BLOOD ORDERABLES Final R esult [facility] [address] [place] [address], [place] [phone] * (ABNORMAL) Basic metabolic panel (10/15/2024 6:14 AM EST) [facility] Sodium 139 133 - 145 mmol/L LAB CHEMISTRY METHOD 10/15/2024 1:01 PM [facility] Potassium 4.4 3.5 - 5.5 mmol/L LAB CHEMISTRY METHOD 10/15/2024 1:01 PM [facility] Chloride 100 96 - 110 mmol/L LAB CHEMISTRY METHOD 10/15/2024 1:01 PM [facility] CO2 30 21 - 32 mmol/L LAB CHEMISTRY METHOD 10/15/2024 1:01 PM [facility] Anion Gap 9 3 - 11 LAB CHEMISTRY METHOD 10/15/2024 1:01 PM [facility] Glucose 107(H) 70 - 100 mg/dL LAB CHEMISTRY METHOD 10/15/2024 1:01 PM [facility] BUN 30(H) 5 - 25 mg/dL LAB CHEMISTRY METHOD 10/15/2024 1:01 PM [facility] Creatinine 1.57(H) 0.70 - 1.30 mg/dL LAB CHEMISTRY METHOD 10/15/2024 1:01 PM [facility] eGFR 45(L) >=60 mL/min/1. 73m2 LAB CHEMISTRY METHOD 10/15/2024 1:01 PM [facility] Comment:Calculation based on the Chronic Kidney Disease Epidemiology Collaboration (CKD-EPI) equation refit without adjustment for race. BUN/Creatinine Ratio 19.1 LAB CHEMISTRY METHOD 10/15/2024 1:01 PM [facility] Calcium 8.9 8.5 - 10.5 mg/dL LAB CHEMISTRY METHOD 10/15/2024 1:01 PM [facility] Blood Venous blood specimen / Unknown Venipuncture / Unknown 10/15/2024 6:14 AM EST 10/15/2024 10:50 AM EST Homar Watson MD LAB BLOOD ORDERABLES Final R esult [facility] [address] [place] [address], * (ABNORMAL) Complete blood count (10/15/2024 6:14 AM EST) WBC 7.0 4.8 - 10.8 K/[facility] LAB HEMETOLOGY METHOD 10/15/2024 12:09 PM [facility] RBC 3.70(L) 4.50 - 5.50 M/[facility] LAB HEMETOLOGY METHOD 10/15/2024 12:09 PM [facility] Hemoglobin 12.2(L) 13.5 - 17.5 g/dL LAB HEMETOLOGY METHOD 10/15/2024 12:09 PM [facility] Hematocrit 38.4(L) 42.0 - 54.0 % LAB HEMETOLOGY METHOD 10/15/2024 12:09 PM [facility] MCV 104.6(H) 79.0 - 98.0 FL LAB HEMETOLOGY METHOD 10/15/2024 12:09 PM [facility] MCH 33.2(H) 27.0 - 32.0 pcg LAB HEMETOLOGY METHOD 10/15/2024 12:09 PM [facility] MCHC 31.8(L) 32.0 - 37.0 g/dL LAB HEMETOLOGY METHOD 10/15/2024 12:09 PM [facility] RDW 13.7 11.0 - 15.0 % LAB HEMETOLOGY METHOD 10/15/2024 12:09 PM [facility] Platelets 168 130 - 400 K/mcL LAB HEMETOLOGY METHOD 10/15/2024 12:09 PM [facility] MPV 12.2(H) 7.0 - 11.0 FL LAB HEMETOLOGY METHOD 10/15/2024 12:09 PM [facility] NRBC 0.0 <1.0 % LAB HEMETOLOGY METHOD 10/15/2024 12:09 PM [facility] NRBC Absolute 0.00 <0.10 K/mcL LAB HEMETOLOGY METHOD 10/15/2024 12:09 PM [facility] Blood Venous blood specimen / Unknown Venipuncture / Unknown 10/15/2024 6:14 AM EST 10/15/2024 10:50 AM EST us Homar Watson MD LAB BLOOD ORDERABLES Final R esult [facility] [address] [place] [address], documented in this encounter Visit Diagnoses Diagnosis Chronic systolic (congestive) heart failure (CMS/HCC V24, CMS/HCC V28) Anemia, unspecified Chronic kidney disease, unspecified Chronic obstructive pulmonary disease, unspecified (CMS/HCC V24, CMS/HCC V28) documented in this encounter Care Teams Hospital Superintendent Relationship Specialty Start Date End Date Homar Watson MD [address] [place] [address] PCP - General Family Medicine 07/11/24 documented as of this encounter
--- OUTSIDE RECORDS SUMMARY | 2025-05-25 22:20 | XMS_ITS | Clinical Summary ---
Author Organization [address] [facility] Address [address] [place] [address] Phone Care Team Providers Care Spoke Maker Name Role Phone Homar Watson MD Primary Care Provider Encounters Date Type Department Care Team Description 04/22/2025 Lab Requisition [facility] [address] [place] [phone] Homar Watson MD Encounter for screening, unspecified; Encounter for other administrative examinations 03/19/2025 Lab Requisition [facility] [address] [place] [phone] Homar Watson MD Anemia, unspecified; Type 2 diabetes mellitus without complications ([facility] V24, [facility] V28) 03/18/2025 Lab Requisition [facility] [address] [place] [phone] Homar Watson MD Anemia, unspecified; Type 2 diabetes mellitus without complications ([facility] V24, [facility] V28) 03/18/2025 Lab Requisition [facility] [address] [place] [phone] Homar Watson MD Other dietary vitamin B12 deficiency anemia; Anemia, unspecified 03/13/2025 Lab Requisition [facility] [address] [place] [phone] Homar Watson MD Essential (primary) hypertension from Last 3 Months Social History Tobacco [...] Control Test (HGBA1C) 03/18/2025 COVID-19 Vaccine ( - season) 2025 Influenza Vaccine (#1) 2025 Diabetes: [...] 03/13/2025 5:59 AM EDT Essential (primary) hypertension from Last 3 Months Results * Drug abuse screen 8a panel, urine (04/21/2025 7:00 AM EDT) Amphetamine Screen, Ur Negative Negative LAB CHEMISTRY METHOD 04/22/2025 1:20 PM EDT [facility] Comment:Certain OTC medicati ons containing ephedrine, phenylephrine, pseudoephedrine and phenylpropanolamine can cause false positive results. Barbiturate Screen, Ur Negative Negative LAB [facility]STR[facility] Benzodiazepine Screen, Ur Negative Negative LAB CHEMISTRY METHOD 04/22[facility]2025 [facility] Cocaine Screen, Ur Negative Negative LAB CHEMISTRY METHOD 04/22[facility]2025 [facility] Opiate Screen, Ur Negative Negative LAB CHEMISTRY METHOD 04/22/2025 1:[address] [facility] Cannabinoid (THC) Screen, Ur Negative Negative LAB CHEMISTRY METHOD 04/22/2025 1:[address] [facility] Comment:Specimens from patie nts taking pantoprazole sodium (Protonix) have been shown to produce false positive results. Oxycodone Screen, Ur Negative Negative LAB CHEMISTRY METHOD 04/22[facility]2025 [facility] Fentanyl, Ur Negative Negative LAB CHEMISTRY METHOD 04/22/2025 1:[address] [facility] Urine Urine specimen from urethra / Unknown Non-blood Collection / Unknown 04/21/2025 7:00 AM EDT 04/22/2025 10:42 AM EDT [facility] - 04/22/2025 1:20 PM EDT Assay [...] ORDERABLES Final R esult Performing Organization Address [facility] Co de Phone Number [facility] [address] [place] [address], [place] [phone] * SST tube (03/18/2025 8:16 AM EDT) Only the most recent of3 resultswithin the time period is included. [facility] Extra Tube Hold for add-ons. 03/18/2025 11:01 AM EDT [facility] Comment:Auto resulted. Blood Venous blood specimen / Unknown Venipuncture / Unknown 03/18/2025 8:16 AM EDT 03/18/2025 9:07 AM EDT Homar Watson MD LAB BLOOD ORDERABLES Final R esult Performing Organization Address [facility] de Phone Number [facility] [address] [place] [address], [place] [phone] * Sjogrens antibodies, SSA and SSB (03/18/2025 8:16 AM EDT) Pathologist [facility] Sjogren's SS-A (Ro) Ab Quant 1 <20 units LAB CHEMISTRY METHOD 03/22/2025 1:11 PM EDT [facility] Sjogren's SS-A (Ro) Ab Negative Negative LAB CHEMISTRY METHOD 03/22/2025 1:11 PM EDT [facility] Sjogren's SS-B (La) Ab Quant 3 <20 units LAB CHEMISTRY METHOD 03/22/2025 1:11 PM EDT [facility] Sjogren's SS-B (La) Ab Negative Negative LAB CHEMISTRY METHOD 03/22/2025 1:11 PM EDT [facility] Blood Venous blood specimen / Unknown Venipuncture / Unknown 03/18/2025 8:16 AM EDT 03/18/2025 9:07 AM EDT Homar Watson MD LAB BLOOD ORDERABLES Final R esult Performing Organization Address [facility]/ZIP Co de Phone Number [facility] [address] [place] [address], [place] [phone] * Cyclic citrullinated peptide, IgG and IgA (03/18/2025 8:16 AM EDT) CCP AB Quant 7 <20 Units LAB CHEMISTRY METHOD 03/25/2025 10:29 AM EDT [facility] Cyclic Citrullinated Peptide (CCP) Antibody Negative Negative LAB CHEMISTRY METHOD 03/25/2025 10:29 AM EDT [facility] Blood Venous blood specimen / Unknown Venipuncture / Unknown 03/18/2025 8:16 AM EDT 03/18/2025 9:07 AM EDT Homar Watson MD LAB BLOOD ORDERABLES Final R esult Performing Organization Address City/[facility]/ZIP Co de Phone Number [facility] [address] [place] [address], [place] [phone] * ROGER IFA with titer and pattern (03/18/2025 8:16 AM EDT) ROGER Negative Negative 03/19/2025 10:12 AM EDT [facility] Blood Venous blood specimen / Unknown Venipuncture / Unknown 03/18/2025 8:16 AM EDT 03/18/2025 9:07 AM EDT Homar Watson MD LAB BLOOD ORDERABLES Final R esult [facility] [address] [place] [address], [place] [phone] * Iron and TIBC (03/18/2025 8:16 AM EDT) Iron 66 50 - 160 mcg/dL LAB CHEMISTRY METHOD 03/18/2025 10:46 AM EDT [facility] TIBC 320 250 - 450 mcg/dL LAB CHEMISTRY METHOD 03/18/2025 10:46 AM EDT [facility] Iron Saturation 21 20 - 50 % LAB CHEMISTRY METHOD 03/18/2025 10:46 AM EDT [facility] Blood Venous blood specimen / Unknown Venipuncture / Unknown 03/18/2025 8:16 AM EDT 03/18/2025 9:07 AM EDT Homar Watson MD LAB BLOOD ORDERABLES Final R esult Performing Organization Address City/[facility]/ZIP Co de Phone Number [facility] [address] [place] [address], [place] [phone] * Anti-scleroderma antibody (03/18/2025 8:16 AM EDT) Scleroderma SCL - 70 Negative Negative LAB CHEMISTRY METHOD 03/22/2025 1:11 PM EDT [facility] Blood Venous blood specimen / Unknown Venipuncture / Unknown 03/18/2025 8:16 AM EDT 03/18/2025 9:07 AM EDT us Homar Watson MD LAB BLOOD ORDERABLES Final R esult [facility] [address] [place] [address], [place] [phone] * Rheumatoid factor (03/18/2025 8:16 AM EDT) Rheumatoid Factor <10.0 <15.0 I Unit/mL LAB CHEMISTRY METHOD 03/18/2025 10:46 AM EDT [facility] Blood Venous blood specimen / Unknown Venipuncture / Unknown 03/18/2025 8:16 AM EDT 03/18/2025 9:07 AM EDT us Homar Watson MD LAB BLOOD ORDERABLES Final R esult Performing Organization Address City/[facility]/ZIP Co de Phone Number [facility] [address] [place] [address], [place] [phone] * Folate (03/18/2025 8:16 AM EDT) Pathologist [facility] Folate 9.6 2.8 - 17.0 ng/ml LAB CHEMISTRY METHOD 03/18/2025 11:08 AM EDT [facility] Blood Venous blood specimen / Unknown Venipuncture / Unknown 03/18/2025 8:16 AM EDT 03/18/2025 9:07 AM EDT us Homar Watson MD LAB BLOOD ORDERABLES Final R esult Performing Organization Address City/[facility]/ZIP Co de Phone Number [facility] [address] [place] [address], [place] [phone] * Ferritin (03/18/2025 8:16 AM EDT) Ferritin 156 26 - 388 ng/mL LAB CHEMISTRY METHOD 03/18/2025 11:08 AM EDT [facility] Blood Venous blood specimen / Unknown Venipuncture / Unknown 03/18/2025 8:16 AM EDT 03/18/2025 9:07 AM EDT us Homar Watson MD LAB BLOOD ORDERABLES Final R esult [facility] [address] [place] [address], [place] [phone] * Vitamin B12 (03/18/2025 8:16 AM EDT) [facility] Vitamin B-12 772 250 - 900 pcg/mL LAB CHEMISTRY METHOD 03/18/2025 11:08 AM EDT [facility] Blood Venous blood specimen / Unknown Venipuncture / Unknown 03/18/2025 8:16 AM EDT 03/18/2025 9:07 AM EDT Homar Watson MD LAB BLOOD ORDERABLES Final R esult Performing Organization Address [facility]/ZIP Co de Phone Number [facility] [address] [place] [address], [place] [phone] * (ABNORMAL) Complete blood count (03/13/2025 5:59 AM EDT) [facility] WBC 6.9 4.8 - 10.8 K/mcL LAB HEMETOLOGY METHOD 03/13/2025 10:58 AM EDT [facility] RBC 3.90(L) 4.50 - 5.50 M/mcL LAB HEMETOLOGY METHOD 03/13/2025 10:[address] [facility] Hemoglobin 13.0(L) 13.5 - 17.5 g/dL LAB HEMETOLOGY METHOD 03/13/2025 10:58 AM EDT [facility] Hematocrit 41.6(L) 42.0 - 54.0 % LAB HEMETOLOGY METHOD 03/13/2025 10:58 AM EDT [facility] MCV 106.1(H) 79.0 - 98.0 FL LAB HEMETOLOGY METHOD 03/13/2025 10:58 AM EDT [facility] MCH 33.2(H) 27.0 - 32.0 pcg LAB HEMETOLOGY METHOD 03/13/2025 10:58 AM EDT [facility] MCHC 31.3(L) 32.0 - 37.0 g/dL LAB HEMETOLOGY METHOD 03/13/2025 10:58 AM EDT [facility] RDW 14.3 11.0 - 15.0 % LAB HEMETOLOGY METHOD 03/13/2025 10:58 AM EDT [facility] Platelets 191 130 - 400 K/mcL LAB HEMETOLOGY METHOD 03/13/2025 10:58 AM EDT [facility] MPV 12.4(H) 7.0 - 11.0 FL LAB HEMETOLOGY METHOD 03/13/2025 10:58 AM EDT [facility] NRBC 0.0 <1.0 % LAB HEMETOLOGY METHOD 03/13/2025 10:58 AM EDT [facility] NRBC Absolute 0.00 <0.10 K/mcL LAB HEMETOLOGY METHOD 03/13/2025 10:58 AM T [facility] Blood Venous blood specimen / Unknown Venipuncture / Unknown 03/13/2025 5:59 AM EDT 03/13/2025 10:16 AM EDT us Homar Watson MD LAB BLOOD ORDERABLES Final R esult [facility] [address] [place] [address], * (ABNORMAL) Basic metabolic panel (03/13/2025 5:59 AM EDT) Sodium 138 133 - 145 mmol/L LAB CHEMISTRY METHOD 03/13/2025 11:23 AM EDT [facility] Potassium 4.1 3.5 - 5.5 mmol/L LAB CHEMISTRY METHOD 03/13/2025 11:23 AM EDT [facility] Chloride 99 96 - 110 mmol/L LAB CHEMISTRY METHOD 03/13/2025 11:[address] [facility] CO2 34(H) 21 - 32 mmol/L LAB CHEMISTRY METHOD 03/13/2025 11:[address] [facility] Anion Gap 5 3 - 11 LAB CHEMISTRY METHOD 03/13/2025 11:[address] [facility] Glucose 135(H) 70 - 100 mg/dL LAB CHEMISTRY METHOD 03/13/2025 11:[address] [facility] BUN 19 5 - 25 mg/dL LAB CHEMISTRY METHOD 03/13/2025 11:[address] [facility] Creatinine 1.17 0.70 - 1.30 mg/dL LAB CHEMISTRY METHOD 03/13/2025 11:[address] [facility] eGFR 63 >=60 mL/min/1. 73m2 LAB CHEMISTRY METHOD 03/13/2025 11:[address] [facility] Comment:Calculation based on the Chronic Kidney Disease Epidemiology Collaboration (CKD-EPI) equation refit without adjustment for race. BUN/Creatinine Ratio 16.2 LAB CHEMISTRY METHOD 03/13/2025 11:[address] [facility] Calcium 9.1 8.5 - 10.5 mg/dL LAB CHEMISTRY METHOD 03/13/2025 11:[address] [facility] Blood Venous blood specimen / Unknown Venipuncture / Unknown 03/13/2025 5:59 AM EDT 03/13/2025 10:16 AM EDT us Homar Watson MD LAB BLOOD ORDERABLES Final R esult [facility] [address] [place] [address], from Last 3 Months Insurance MEDICAID - [place] Care Teams Spoke Maker Relationship Specialty Start Date End Date Homar Watson MD [address] [place] [address] PCP - General Family Medicine 07/11/24
--- OUTSIDE RECORDS SUMMARY | 2025-05-25 22:20 | XMS_ITS ---
Author Organization [facility] Care Team Providers Care Finance Business Partner Name Role Phone Irma Beach Unavailable Unavailable Homar Watson Unavailable Unavailable Homar Patel Unavailable Unavailable Vandana Keita Unavailable Unavailable Minerva Montano Unavailable Angelina vailable Allergies and adverse reactions Code CodeSystem Substance Reaction Severity StartDate Concern Status [id number] SNOMED CT Penicillins Unknown 02/21/2024 activ e Care Team Name Role Address Phone Organization Dates Homar Patel PCP [address] [place] [address], [address], [place] (Office): : [facility] 02/27/2024 - present Irma Beach [address] [place] [address], [address], [place] (Office[place] : [facility] 02/27/2024 - present Homar Watson [address], [address], [place] (Office): : [facility] 02/27/2024 - present Vandana Keita [facility], [place], [address], [place] (Fax): [facility] 02/27/2024 - present Minerva Montano [address] [place], [place], [phone], [facility] (Office): : [facility] 02/27/2024 - present Encounters EncounterType Code CodeSystem Description Performer ServiceDe liveryLocation Date Ambulatory Encounter CPT Code = [address] Disorder of nervous system due to type 2 diabetes mellitus [id number] [facility] Address: [address] [place] [address], [address] [place] [address]. 02/26 Ambulatory Encounter CPT Code = [address] Acute exacerbation of chronic obstructive pulmonary disease [id number] [facility] Address: [address] [place] [address], [address] [place] [address]. 02/26 Ambulatory Encounter CPT Code = [address] Bronchitis [id number] [facility] Address: [address] [place] [address], [address] [place] [address], [facility]. 02/26 Ambulatory Encounter CPT Code = [address] Hypertensive heart and chronic kidney disease [id number] [facility] Address: [address] [place] [address], [address] [place] [address]. 02/26 Ambulatory Encounter CPT Code = [address] Chronic cough [id number] [facility] Address: [address] [place] [address], [address] [place] [address], [facility]. 02/26 Ambulatory Encounter CPT Code = [address] Chronic kidney disease [id number] [facility] Address: [address] [place] [address], [address] [place] [address]. 02/26 Ambulatory Encounter CPT Code = [address] Spondylosis [id number] [facility] Address: [address] [place] [address], [address] [place] [address]. 02/26 Ambulatory Encounter CPT Code = [address] Pain [id number] [facility] Address: [address] [place] [address], [address] [place] [address]. 02/26 Ambulatory Encounter CPT Code = [address] Nicotine dependence [id number] [facility] Address: [address] [place] [address], [address] [place] [address]. 02/26 Ambulatory Encounter CPT Code = [address] Cough [id number] [facility] Address: [address] [place] [address], [address] [place] [address]. 02/26 Ambulatory Encounter CPT Code = [address] Disorder of skin and/or subcutaneous tissue [id number] [facility] Address: [address] [place] [address], [address] [place] [address]. 02/26 Ambulatory Encounter CPT Code = [address] Muscle pain [id number] [facility] Address: [address] [place] [address], [address] [place] [address], [facility]. 02/26 Ambulatory Encounter CPT Code = [address] Adjustment disorder with anxious mood [id number] [facility] Address: [address] [place] [address], [address] [place] [address]. 02/26 Ambulatory Encounter CPT Code = [address] Combined form of senile cataract [id number] [facility] Address: [address] [place] [address], [address] [place] [address], [facility]. 02/26 Ambulatory Encounter CPT Code = [address] Presbyopia [id number] [facility] Address: [address] [place] [address], [address] [place] [address]. 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 02/26 Ambulatory Encounter CPT Code = [address] Dystrophia unguium [id number] [facility] Address: [address] [place] [address], [address] [place] [address]. 02/26 Ambulatory Encounter CPT Code = [address] Onychomycosis due to dermatophyte [id number] [facility] Address: [address] [place] [address], [address] [place] [address]. 02/26 Ambulatory Encounter CPT Code = 83952 [address] Peripheral circulatory disorder due to type 2 diabetes mellitus [id number] [facility] Address: [address] [place] [address], [address] [place] [address]. 02/26 Ambulatory Encounter CPT Code = [address] Adjustment disorder [id number] [facility] Address: [address] [place] [address], [address] [place] [address]. 02/26 Ambulatory Encounter CPT Code = 29999 9718[address] Congestive heart failure [id number] [facility] Address: [address] [place] [address], [address] [place] [address]. 02/26 Ambulatory Encounter CPT Code = [address] Atrial flutter [id number] [facility] Address: [address] [place] [address], [address] [place] [address]. 02/26 Ambulatory Encounter CPT Code = [address] Hypertensive heart failure [id number] [facility] Address: [address] [place] [address], [address] [place] [address], [facility]. 02/26 Ambulatory Encounter CPT Code = [address] Benign prostatic hyperplasia [id number] [facility] Address: [address] [place] [address], [address] [place] [address]. 02/26 Ambulatory Encounter CPT Code = [address] Muscle weakness [id number] [facility] Address: [address] [place] [address], [address] [place] [address], [facility]. 02/26 Ambulatory Encounter CPT Code = [address] Sick sinus syndrome [id number] [facility] Address: [address] [place] [address], [address] [place] [address]. 02/26 Ambulatory Encounter CPT Code = [address] Abnormal gait [id number] [facility] Address: [address] [place] [address], [address] [place] [address]. 02/26 Ambulatory Encounter CPT Code = [address] Type 2 diabetes mellitus [id number] [facility] Address: [address] [place] [address], [address] [place] [address]. 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 02/26 Ambulatory Encounter CPT Code = 93389 [address]773613 2530793 [address] Bilateral localized swelling of lower limbs [id number] [facility] Address: [address] [place] [address], [address] [place] [address]. 02/26 Ambulatory Encounter CPT Code = [address] Constipation [id number] [facility] Address: [address] [place] [address], [address] [place] [address]. 02/26 Ambulatory Encounter CPT Code = [address] Localized edema [id number] [facility] Address: [address] [place] [address], [address] [place] [address], [facility]. 02/26 Ambulatory Encounter CPT Code = 50494 [address] Long-term current use of anticoagulant [id number] [facility] Address: [address] [place] [address], [address] [place] [address]. 02/26 Ambulatory Encounter CPT Code = [address] Type 2 diabetes mellitus without complication [id number] [facility] Address: [address] [place] [address], [address] [place] [address]. 02/26 Ambulatory Encounter CPT Code = [address] Asteatosis cutis [id number] [facility] Address: [address] [place] [address], [address] [place] [address]. 02/26 Ambulatory Encounter CPT Code = [address] Typical atrial flutter [id number] [facility] Address: [address] [place] [address], [address] [place] [address]. 02/26 Ambulatory Encounter CPT Code = [address] Gout [id number] [facility] Address: [address] [place] [address], [address] [place] [address]. 02/26 Ambulatory Encounter CPT Code = [address] Primary gout [id number] [facility] Address: [address] [place] [address], [address] [place] [address]. 02/26 Ambulatory Encounter CPT Code = 67939 52064[address] Long-term current use of drug therapy [id number] [facility] Address: [address] [place] [address], [address] [place] [address]. 02/26 Ambulatory Encounter CPT Code = 66516 0955519 39212[address] Long-term current use of aspirin [id number] [facility] Address: [address] [place] [address], [address] [place] [address]. 02/26 Ambulatory Encounter CPT Code = [address] Hypokalemia [id number] [facility] Address: [address] [place] [address], [address] [place] [address]. 02/26 Ambulatory Encounter CPT Code = [address] Chronic diastolic heart failure [id number] [facility] Address: [address] [place] [address], [address] [place] [address], [facility]. 02/26 Ambulatory Encounter CPT Code = [address] Urinary tract infectious disease [id number] [facility] Address: [address] [place] [address], [address] [place] [address], [facility]. 02/26 Ambulatory Encounter CPT Code = 00467 49906[address] Subsequent non-ST segment elevation myocardial infarction [id number] [facility] Address: [address] [place] [address], [address] [place] [address], [facility]. 02/26 Ambulatory Encounter CPT Code = [address] Angina pectoris [id number] [facility] Address: [address] [place] [address], [address] [place] [address], [facility]. 02/26 Ambulatory Encounter CPT Code = [address] Old myocardial infarction [id number] [facility] Address: [address] [place] [address], [address] [place] [address], [facility]. 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 02/26 Ambulatory Encounter CPT Code = [address] Hyperlipidemia [id number] [facility] Address: [address] [place] [address], [address] [place] [address], [facility]. 02/26 Ambulatory Encounter CPT Code = [address] Low blood pressure [id number] [facility] Address: [address] [place] [address], [address] [place] [address], [facility]. 02/26 Ambulatory Encounter CPT Code = [address] Neck pain [id number] [facility] Address: [address] [place] [address], [address] [place] [address], [facility]. 02/26 Ambulatory Encounter CPT Code = [address] Lumbago with sciatica [id number] [facility] Address: [address] [place] [address], [address] [place] [address], [facility]. 02/26 Ambulatory Encounter CPT Code = 91114 [address]35[address] Kyphosis of thoracic spine [id number] [facility] Address: [address] [place] [address], [address] [place] [address]. 02/26 Ambulatory Encounter CPT Code = [address] Thiamine deficiency [id number] [facility] Address: [address] [place] [address], [address] [place] [address]. 02/26 Ambulatory Encounter CPT Code = 66960 [address]396[address] Retention of urine [id number] [facility] Address: [address] [place] [address], [address] [place] [address]. 02/26 Ambulatory Encounter CPT Code = [address] Essential hypertension [id number] [facility] Address: [address] [place] [address], [address] [place] [address], [facility]. 02/26 Ambulatory Encounter CPT Code = [address] Obesity [id number] [facility] Address: [address] [place] [address], [address] [place] [address]. 02/26 Ambulatory Encounter CPT Code = 02820 [address]75[address] Peripheral vascular disease [id number] [facility] Address: [address] [place] [address], [address] [place] [address], [facility]. 02/26 Ambulatory Encounter CPT Code = [address]14 [address] Vitamin D deficiency [id number] [facility] Address: [address] [place] [address], [address] [place] [address], [facility]. 02/26 Ambulatory Encounter CPT Code = [address] Fall [id number] [facility] Address: [address] [place] [address], [address] [place] [address]. 02/26 Ambulatory Encounter CPT Code = [address]95 [address]109[address] Body mass index 30+ - obesity [id number] [facility] Address: [address] [place] [address], [address] [place] [address], [facility]. 02/26 Ambulatory Encounter CPT Code = [address] Anemia [id number] [facility] Address: [address] [place] [address], [address] [place] [address], [facility]. 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 02/26 Ambulatory Encounter CPT Code = 47036 [address]327[address] Anemia in chronic kidney disease [id number] [facility] Address: [address] [place] [address], [address] [place] [address]. 02/26 Ambulatory Encounter CPT Code = 89940 6627041 [address]45[address] Need for personal care assistance [id number] [facility] Address: [address] [place] [address], [address] [place] [address], [facility]. 02/26 Ambulatory Encounter CPT Code = [address] Dyspnea [id number] [facility] Address: [address] [place] [address], [address] [place] [address], [facility]. 02/26 Ambulatory Encounter CPT Code = 19290 [address] Chest pain [id number] [facility] Address: [address] [place] [address], [address] [place] [address], [facility]. 02/26 Ambulatory Encounter CPT Code = [address] Benign prostatic hyperplasia with outflow obstruction [id number] [facility] Address: [address] [place] [address], [address] [place] [address], [facility]. 02/26 Ambulatory Encounter CPT Code = [address] Aortocoronary bypass graft present [id number] [facility] Address: [address] [place] [address], [address] [place] [address]. 02/26 Ambulatory Encounter CPT Code = [address] Chronic obstructive pulmonary disease [id number] [facility] Address: [address] [place] [address], [address] [place] [address], [facility]. 02/26 Ambulatory Encounter CPT Code = 99840 2771689 70677[address] Atherosclerosi s of coronary artery without angina pectoris [id number] [facility] Address: [address] [place] [address], [address] [place] [address]. 02/26 Ambulatory Encounter CPT Code = [address] Atrial fibrillation [id number] [facility] Address: [address] [place] [address], [address] [place] [address], [facility]. 02/26 Ambulatory Encounter CPT Code = 02055 [address]659[address] Chronic kidney disease stage 3 [id number] [facility] Address: [address] [place] [address], [address] [place] [address], [facility]. 02/26 Ambulatory Encounter CPT Code = [address] Primary gout [id number] [facility] Address: [address] [place] [address], [address] [place] [address], [facility]. 02/26 Ambulatory Encounter CPT Code = [address] Complete atrioventricul ar block [id number] [facility] Address: [address] [place] [address], [address] [place] [address], [facility]. 02/26 Ambulatory Encounter CPT Code = [address] Osteoarthritis [id number] [facility] Address: [address] [place] [address], [address] [place] [address], [facility]. 02/26 Ambulatory Encounter CPT Code = [address] Urinary tract obstruction [id number] [facility] Address: [address] [place] [address], [address] [place] [address]. 02/26 Ambulatory Encounter CPT Code = [address] Congenital malformation of the respiratory system [id number] [facility] Address: [address] [place], [address], [facility]. 02/26 Ambulatory Encounter CPT Code = [address] Recurrent pneumonia [id number] [facility] hospital Address: [address] [place] [address], [address], [facility]. 02/26 Ambulatory Encounter CPT Code = [address] Implantation procedure [id number] [facility] Address: [address] [place] [address], [address], [facility]. 02/26 Goals Section Goals Description Status Target [...] to discuss op enly with the facility social welfare clerk any feelings or coping impairments I may [...] Code Name Recorded Time Value Entered By Chair/dcg-yc-npkgk transfer 05/25/2025 Independent sully Does the resident use a wheelchair and/or scooter? 05/25/2025 Yes (qualifier value) hward Eating 05/25/2025 Independent sully Indicate the type of wheelchair or scooter used 05/25/2025 Manual wheelchair (physical object) hward Lower body dressing 05/25/2025 Independent hward Lying to sitting on side of bed 05/25/2025 Independent hward Oral hygiene 05/25/2025 Independent eluna Personal hygiene 05/25/2025 Independent purviard Picking up object 05/25/2025 Independent purviard Putting on/taking off footwear 05/25/2025 Independen t hward Roll left and right 05/25/2025 Independent hward Shower/bathe self 05/25/2025 Independent mwhitlock Sit to lying 05/25/2025 Independent hward Sit to stand 05/25/2025 Independent hward Toilet transfer 05/25/2025 Independent hward Toileting hygiene 05/25/2025 Independent hward Upper body dressing 05/25/2025 Independent hward Walk 10 feet 05/25/2025 Independent hward Walk 150 feet 05/25/2025 Not assessed hward Wheel 50 feet with two turns 05/25/2025 Independent hwjuani Immunizations Immunization Status Vaccine Details Vaccine Code [...] date: 4 consent date: 4 Resident refused [email or web address] vaccine this shift. patient objection PneumoPPV cancelled [...] consent date: 8 Refused series patient objection COVID cancelled SARS-COV-2 (COVID-19) vaccine, mRNA, spike [...] Date Indication Tamsulosin HCl Cap 0.4 MG aborted 07005 9 RXNORM 1 alice t Oral one time a day Routin e Give 1 alice t orall y one time a day relat ed to Benig n prost atic hyper plasi a with lower urina ry tract symp (N40. 1) 05/08 - Insta-Gluco se Oral Gel 77.4 % aborted 93375 22 RXNORM 1 dose Oral as needed PRN Give 1 dose by mouth as neede d for hypog lycem ia relat ed to Type 2 diabe kya melli tus with diabe tic neuro dai , [...] MIN UNTIL GREAT ER THAN 100 BS 05/08 hypoglycemi a Albuterol Sulfate Inhal Aero 108 MCG/ACT (90MCG Base Equiv) aborted 11 RXNORM 1 puff Inhala tion as needed PRN 1 puff inhal e orall y every 8 hours as neede d for Wheez ing relat ed to Chron ic obstr uctiv e pulmo nary disea se, unspe cifie d (J44. 9) 05/08 Wheezing Glucagon Subcutaneou s Soln Pref Syringe 1 MG/0.2ML aborted 61581 16 RXNORM 1 mg Subcut aneous as needed PRN Injec t 1 mg subcu taneo usly as neede d for hypog lycem ia relat ed to Type 2 diabe kya rosai tus with diabe tic neuro dai , unsp (E11. 40) Give1 mg reche ck FSG in 15 mins (with in 30 mins of initi al FSG) retre at until FSG is equal to 100mg /DL every 15 mins 05/08 hypoglycemi a Apixaban Tab 5 MG aborted 31567 47 RXNORM 1 table t Oral two times a day Routin e Give 1 table t orall y two times a day relat ed to Unspe cifie d atria l fibri llati on (I48. 91) 05/08 - Docusate Sodium Oral Capsule 100 MG aborted 86300 05 RXNORM 1 capsu le Oral as needed PRN Give 1 capsu le by mouth every 12 hours as neede d for const ipati on relat ed to CONST IPATI ON, UNSPE CIFIE D (K59. 00) 05/08 constipatio n GlycoLax Powder aborted 63189 3 RXNORM 17 gram Oral as needed PRN Give 17 gram by mouth every 12 hours as neede d for const ipati on relat ed to CONST IPATI ON, UNSPE CIFIE D (K59. 00) mix with 4-6oz fluid of prefe rence unles s contr aindi cated 05/08 constipatio n Ipratropium -Albuterol Inhalation Solution 0.5-2.5 (3) MG/3ML aborted 96113 02 RXNORM 1 vial Inhala tion as [...] for wheez ing/s ob for 5 Days 05/08 Cough 28528 02 RXNORM 1 vial Inhala tion three [...] for wheez ing/s ob for 5 Days 05/08 wheezing/so b Allopurinol Oral Tablet 100 MG aborted 9 RXNORM 2 table t Oral one time a day Routin e Give 2 table t by mouth one time a day relat ed to IDIOP ATHIC GOUT, RIGHT ANKLE AND FOOT (M10. 071) 05/08 - Gabapentin Oral Capsule 100 MG aborted 99726 0 RXNORM 2 capsu le Oral at bedtime Routin e Give 2 capsu le by mouth at bedti me relat ed to TYPE 2 DIABE KYA MELLI TUS WITH DIABE TIC NEURO DAI , UNSPE CIFIE D (E11. 40) 05/08 - Aspirin Tab Delayed Release 81 MG aborted 37112 6 RXNORM 1 table t Oral one time a day Routin e Give 1 table t orall y one time a day relat ed to Unspe cifie d atria l fibri llati on (I48. 91) 05/08 - Thiamine HCl Tab 100 MG aborted 59705 3 RXNORM 1 table t Oral one time a day Routin e Give 1 table t orall y one time a day relat ed to Kendy ine defic iency , unspe cifie d (E51. 9) 05/08 - Atorvastati n Calcium Tab 80 MG (Base Equivalent) aborted 05712 5 RXNORM 1 table t Oral one time a day Routin e Give 1 table t orall y one time a day relat ed to Hyper lipid emia, unspe cifie d (E78. 5) 05/08 - Potassium Chloride Tab ER 10 mEq aborted 48733 3 RXNORM 1 table t Oral one time a day Routin e Give 1 table t orall y one time a day relat ed to Hypok alemi a (E87. 6) 05/08 - Vitamin B12 Oral Tablet 500 MCG aborted 1 table t Oral one time a day Routin e Give 1 table t by mouth one time a day relat ed to Vitam in B12 defic iency anemi a, unspe cifie d (D51. 9) 05/08 - Iron Oral Tablet 325 (65 Fe) MG aborted 325 mg Oral in the morning Routin e Give 325 mg by mouth in the [facility] ng for anaem ia 05/08 anaemia Ascorbic Acid Tablet 500 MG aborted 59428 2 RXNORM 1 table t Oral one time a day Routin e Give 1 table t by mouth one time a day for immun e syste m suppo rt 05/08 immune system support Metoprolol Succinate ER Oral Tablet Extended Release 24 Hour 25 MG aborted 60700 7 RXNORM 0.5 table t Oral in the evening Routin e Give 0.5 table t by mouth in the [facility] ng relat ed to ESSESTELA TIAL (PRIM TAM) HYPER TENSI ON (I10) Hold for SBP <100 05/08 - Arnuity Ellipta Inhalation Aerosol Powder Breath Activated 200 MCG/ACT aborted 85370 68 RXNORM 1 inhal ation Inhala tion one time a day Routin e 1 inhal ation inhal e orall y one time a day for ? ild 05/08 ? ild Flonase Allergy Relief Nasal Suspension 50 MCG/ACT active 61523 33 RXNORM 1 spray Nasal one time a day Routin e 1 spray in both nostr ils one time a day relat ed to SICK SINUS SYNDR OME (I49. 5) 2024 - - Singulair Oral Tablet Chewable 5 MG active 25672 3 RXNORM 1 table t Oral at bedtime Routin e Give 1 table t by mouth at bedti me relat ed to CHRON IC OBSTR UCTIV E PULMO NARY DISEA SEJAIMIE (J44. 9) 2024 - - Nitroglycer in Sublingual Tablet Sublingual 0.3 MG complet ed 8 RXNORM 1 table t Sublin gual one time only One Time Only Give 1 table t subli ngual ly one time only for chest pain until 05/02 23:59 05/03 chest pain Tamsulosin HCl Cap 0.4 MG active 01182 9 RXNORM 1 alice t Oral one time a day Routin e Give 1 alice t orall y one time a day relat ed to Benig n prost atic hyper plasi a with lower urina ry tract symp (N40. 1) 2024 - - Lidocaine External Patch 4 % active 51816 94 RXNORM n/a n/a Topica l one time a day Routin e Apply to to lower back topic ally one time a day relat ed to LUM GO WITH SCIAT JAIMIE DICKEY SIDE (M54. 40) put on in am and remov ed 12 hours later and remov e per sched ule 2024 - - Insta-Gluco se Oral Gel 77.4 % active 40413 22 RXNORM 1 dose Oral as needed PRN Give 1 dose by mouth as neede d for hypog lycem ia relat ed to Type 2 diabe kya melli tus with diabe tic neuro dai , [...] MIN UNTIL GREAT ER THAN 100 BS 2024 - hypoglycemi a Albuterol Sulfate Inhal Aero 108 MCG/ACT (90MCG Base Equiv) active 35089 11 RXNORM 1 puff Inhala tion as needed PRN 1 puff inhal e orall y every 8 hours as neede d for Wheez ing relat ed to Chron ic obstr uctiv e pulmo nary disea se, unspe cifie d (J44. 9) 2024 - Wheezing Glucagon Subcutaneou s Soln Pref Syringe 1 MG/0.2ML active 74755 16 RXNORM 1 mg Subcut aneous as needed PRN Injec t 1 mg subcu taneo usly as neede d for hypog lycem ia relat ed to Type 2 diabe kya melli tus with diabe tic neuro dai , unsp (E11. 40) Give1 mg reche ck FSG in 15 mins (with in 30 mins of initi al FSG) retre at until FSG is equal to 100mg /DL every 15 mins 2024 - hypoglycemi a Apixaban Tab 5 MG active 64371 47 RXNORM 1 table t Oral two times a day Routin e Give 1 table t orall y two times a day relat ed to Unspe cifie d atria l fibri llati on (I48. 91) 2024 - - Naloxone HCl Injection Solution 0.4 MG/ML active 04508 29 RXNORM 1 ml Intram uscula r [...] ing resid ent. Call 911-U joaquina RENDON 2024 - suspected opioid overdose Naloxone HCl Nasal Liquid 4 MG/0.1ML active 80571 59 RXNORM 1 spray in nostri l [...] ing resid ent. Call 911-U joaquina RENDON 2024 - suspected opioid overdose Acetaminoph en Tablet 325 MG active 65387 2 RXNORM 2 table t Oral as needed PRN Give 2 table t by mouth every 8 hours as neede d for gener al disco mfort /temp above 101 relat ed to UNSPE CIFIE D OSTEO ARTHR ITIS, UNSPE CIFIE D SITE (M19. 90) not to excee d 3gm/[address] [facility] es 2024 - general discomfort/ temp above 101 GuaiFENesin ER Tablet Extended Release 12 Hour 600 MG active 40133 2 RXNORM 1 table t Oral every 12 hours Routin e Give 1 table t by mouth every 12 hours for COUGH ING relat ed to CHRON IC OBSTR UCTIV E PULMO NARY DISEA SE, UNSPE CIFIE D (J44. 9) 2024 - COUGHING EPINEPHrine Injection Solution Auto-inject or 0.3 MG/0.3ML active 46493 05 RXNORM 0.3 ml Intram uscula r as needed PRN Injec t 0.3 ml intra muscu larly as neede d for Anaph ylaxi s may repea t in 3-5 minut es for 2 doses 2024 - Anaphylaxis PreviDent 5000 Booster Plus Dental Paste 1.1 % active 74047 4 RXNORM 1 appli catio n Dental one time a day Routin e 1 appli catio n denta l one time a day for Denta l Care Resid ent able to compl ete on own with set up help. 2024 - Dental Care Optimal D3 Oral Capsule 1.25 MG (74735 UT) active 1 capsu le Oral one time a day Routin e Give 1 capsu le by mouth one time a day start ing on the and endin g on the every month relat ed to VITAM IN D DEFIC IENCY , UNSPE CIFIE D (E55. 9) 2024 - - Docusate Sodium Oral Capsule 100 MG active 10387 05 RXNORM 1 capsu le Oral as needed PRN Give 1 capsu le by mouth every 12 hours as neede d for const ipati on relat ed to CONST IPATI ON, UNSPE CIFIE D (K59. 00) 2024 - constipatio n Torsemide Oral Tablet 20 MG active 1 RXNORM 2 table t Oral one time a day Routin e Give 2 table t by mouth one time a day relat ed to UNSPE CIFIE D DIAST OLIC (NADIA ESTIV E) HEART FAILU RE (I50. 30) 2 tabs = TD 40mg 2024 - - GlycoLax Powder active 59777 3 RXNORM 17 gram Oral as needed PRN Give 17 gram by mouth every 12 hours as neede d for const ipati on relat ed to CONST IPATI ON, UNSPE CIFIE D (K59. 00) mix with 4-6oz fluid of prefe rence unles s contr aindi cated 2024 - constipatio n Ipratropium -Albuterol Inhalation Solution 0.5-2.5 (3) MG/3ML active 61323 02 RXNORM 1 vial Inhala tion as needed PRN 1 vial inhal e orall y every 6 hours as neede d for Cough relat ed to SHORT NESS OF BREAT H (R06. 02);C HRONI C OBSTR UCTIV E PULMO NARY DISEA SE, UNSPE CIFIE D (J44. 9) For cough or wheez e 2024 - Cough Allopurinol Oral Tablet 100 MG active 9 RXNORM 2 table t Oral one time a day Routin e Give 2 table t by mouth one time a day relat ed to IDIOP ATHIC GOUT, RIGHT ANKLE AND FOOT (M10. 071) 2024 - - Gabapentin Oral Capsule 100 MG active 66894 0 RXNORM 2 capsu le Oral at bedtime Routin e Give 2 capsu le by mouth at bedti me relat ed to TYPE 2 DIABE KYA ROSAI TUS WITH DIABE TIC NEURO DAI , UNSPE CIFIE D (E11. 40) 2024 - - Aspirin Tab Delayed Release 81 MG active 10937 6 RXNORM 1 table t Oral one time a day Routin e Give 1 table t orall y one time a day relat ed to Unspe cifie d atria l fibri llati on (I48. 91) 2024 - - Thiamine HCl Tab 100 MG active 50010 3 RXNORM 1 table t Oral one time a day Routin e Give 1 table t orall y one time a day relat ed to Kendy ine defic iency , unspe cifie d (E51. 9) 2024 - - Atorvastati n Calcium Tab 80 MG (Base Equivalent) active 35368 5 RXNORM 1 table t Oral one time a day Routin e Give 1 table t orall y one time a day relat ed to Hyper lipid emia, unspe cifie d (E78. 5) 2024 - - Potassium Chloride Tab ER 10 mEq active 25409 3 RXNORM 1 table t Oral one [...] Give 325 mg by mouth in the morni ng for anaem ia 2024 - anaemia Ascorbic Acid Tablet 500 MG active 90818 2 RXNORM 1 table t Oral one time a day Routin e Give 1 table t by mouth one time a day for immun e syste m suppo rt 2024 - immune system support Metoprolol Succinate ER Oral Tablet Extended Release 24 Hour 25 MG active 51364 7 RXNORM 0.5 table t Oral in the evening Routin e Give 0.5 table t by mouth in the eveni ng relat ed to ESSEN TIAL (PRIM TAM) HYPER TENSI ON (I10) Hold for SBP <100 2024 - - Arnuity Ellipta Inhalation Aerosol Powder Breath Activated 200 MCG/ACT active 85916 68 RXNORM 1 inhal ation Inhala tion one time a day Routin e 1 inhal ation inhal e orall y one time a day for ? ild 2024 - ? ild Naloxone HCl Injection Solution 0.4 MG/ML aborted 43313 29 RXNORM 1 ml Intram uscula r [...] ing resid ent. Call 911-U joaquina RENDON 05/08 suspected opioid overdose Naloxone HCl Nasal Liquid 4 MG/0.1ML aborted 28402 59 RXNORM 1 spray in nostri l [...] ing resid ent. Call 911-U joaquina RENDON 05/08 suspected opioid overdose Acetaminoph en Tablet 325 MG aborted 69457 2 RXNORM 2 table t Oral as needed PRN Give 2 table t by mouth every 8 hours as neede d for gener al disco mfort /temp above 101 relat ed to UNSPE CIFIE D OSTEO ARTHR ITIS, UNSPE CIFIE D SITE (M19. 90) not to excee d 3gm/2 4hour s from all [facility] es 05/08 general discomfort/ temp above 101 GuaiFENesin ER Tablet Extended Release 12 Hour 600 MG aborted 14632 2 RXNORM 1 table t Oral every 12 hours Routin e Give 1 table t by mouth every 12 hours for COUGH ING relat ed to CHRON IC OBSTR UCTIV E PULMO NARY DISEA SE, UNSPE CIFIE D (J44. 9) 05/08 COUGHING EPINEPHrine Injection Solution Auto-inject or 0.3 MG/0.3ML aborted 96717 05 RXNORM 0.3 ml Intram uscula r as needed PRN Injec t 0.3 ml intra muscu larly as neede d for Anaph ylaxi s may repea t in 3-5 minut es for 2 doses 05/08 Anaphylaxis PreviDent 5000 Booster Plus Dental Paste 1.1 % aborted 20531 4 RXNORM 1 appli catio n Dental one time a day Routin e 1 appli catio n denta l one time a day for Denta l Care Resid ent able to compl ete on own with set up help. 05/08 Dental Care Optimal D3 Oral Capsule 1.25 MG (55206 UT) aborted 1 capsu le Oral one time a day Routin e Give 1 capsu le by mouth one time a day start ing on the and endin g on the every month relat ed to MIKAYLA IN D DEFIC IENCY , UNSPE CIFIE D (E55. 9) 05/08 - Torsemide Oral Tablet 20 MG aborted 1 RXNORM 2 table t Oral one time a day Routin e Give 2 table t by mouth one time a day relat ed to UNSPE CIFIE D DIAST OLIC (NADIA ESTIV E) HEART FAILU RE (I50. 30) 2 tabs = TD 40mg 05/08 - Lidocaine External Patch 4 % aborted 82966 94 RXNORM n/a n/a Topica l one time a day Routin e Apply to to lower back topic ally one time a day relat ed to LUMBA GO WITH SCIAT ICA, UNSPE CIFIE D SIDE (M54. 40) put on in am and remov ed 12 hours later and remov e per sched ule 05/08 - Mental Status Section Date Assessment Total Score Description 04/27/2025 BIMS 15 cognitively int act CAM 0 No delirium ind icated PHQ-9 00 02/02/2025 BIMS 15 cognitively int act CAM 0 No delirium ind icated PHQ-9 00 Insurance Providers Plan of Treatment Section Interventions Intervention Code Code System Display Name Proposed D ate Problems Problem # Description Date of onset Resolved Date Code CodeSystem Concern Status 1 CHRONIC OBSTRUCTIVE PULMONARY DISEASE WITH (ACUTE) EXACERBATION 10/31/[address] active 2 BRONCHITIS, NOT SPECIFIED ACUTE OR CHRONIC 10/29/[address] active 3 HYPERTENSIVE HEART AND CHRONIC KIDNEY DISEASE WITHOUT HEART FAILURE, WITH STAGE 1 THROUGH STAGE 4 CHRONIC KIDNEY DISEASE, OR UNSPECIFIED CHRONIC KIDNEY DISEASE 10/26/[address] active 4 CHRONIC COUGH 10/22/[address] active 5 CHRONIC KIDNEY DISEASE, UNSPECIFIED 10/22/[address] active 6 PAIN, UNSPECIFIED 10/01/[address] active 7 PERSONAL HISTORY OF NICOTINE DEPENDENCE 10/01/[address] active 8 SPONDYLOSIS, UNSPECIFIED 10/01/[address] active 9 COUGH, UNSPECIFIED 09/16/[address] active 10 MYALGIA, OTHER SITE 05/23/[address] active 11 PERSONAL HISTORY OF DISEASES OF THE SKIN AND SUBCUTANEOUS TISSUE 05/23/[address] active 12 ADJUSTMENT DISORDER WITH ANXIETY 03/25/[address] active 13 COMBINED FORMS OF AGE-RELATED CATARACT, BILATERAL 03/13/[address] active 14 PRESBYOPIA 03/13/[address] active 15 NAIL DYSTROPHY 03/11/[address] active 16 TINEA UNGUIUM 03/11/[address] active 17 TYPE 2 DIABETES MELLITUS WITH OTHER CIRCULATORY COMPLICATIONS 03/11/[address] active 18 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, BILATERAL LEGS 03/11/[address] active 19 ADJUSTMENT DISORDER, UNSPECIFIED 03/04/[address] active 20 BENIGN PROSTATIC HYPERPLASIA WITHOUT LOWER URINARY TRACT SYMPTOMS 02/29/[address] active 21 HYPERTENSIVE HEART DISEASE WITH HEART FAILURE 02/29/[address] active 22 MUSCLE WEAKNESS (GENERALIZED) 02/29/[address] active 23 SICK SINUS SYNDROME 02/29/[address] active 24 TYPE 2 DIABETES MELLITUS WITH DIABETIC CHRONIC KIDNEY DISEASE 02/29/[address] active 25 TYPE 2 DIABETES MELLITUS WITH DIABETIC PERIPHERAL ANGIOPATHY WITHOUT GANGRENE 02/29/[address] active 26 UNSPECIFIED ABNORMALITIES OF GAIT AND MOBILITY 02/29/[address] active 27 UNSPECIFIED ATRIAL FLUTTER 02/29/[address] active 28 UNSPECIFIED DIASTOLIC (CONGESTIVE) HEART FAILURE 02/29/[address] active 29 ANEMIA IN CHRONIC KIDNEY DISEASE 02/21/[address] active 30 ANEMIA, UNSPECIFIED 02/21/[address] active 31 ANGINA PECTORIS, UNSPECIFIED 02/21/[address] active 32 ATHEROSCLEROSIS OF CORONARY ARTERY BYPASS GRAFT(S) WITHOUT ANGINA PECTORIS 02/21/[address] active 33 ATHEROSCLEROTIC HEART DISEASE OF CIRCLE CORONARY ARTERY WITHOUT ANGINA PECTORIS 02/21/[address] active 34 ATRIOVENTRICULAR BLOCK, COMPLETE 02/21/[address] active 35 BENIGN PROSTATIC HYPERPLASIA WITH LOWER URINARY TRACT SYMPTOMS 02/21/[address] active 36 BODY MASS INDEX [BMI] 37.0-37.9, ADULT 02/21/[address] active 37 CERVICALGIA 02/21/[address] active 38 CHEST PAIN, UNSPECIFIED 02/21/[address] active 39 CHRONIC DIASTOLIC (CONGESTIVE) HEART FAILURE 02/21/[address] active 40 CHRONIC KIDNEY DISEASE, STAGE 3 UNSPECIFIED 02/21/[address] active 41 CHRONIC OBSTRUCTIVE PULMONARY DISEASE, UNSPECIFIED 02/21/[address] active 42 CONSTIPATION, UNSPECIFIED 02/21/[address] active 43 ESSENTIAL (PRIMARY) HYPERTENSION 02/21/[address] active 44 GOUT, UNSPECIFIED 02/21/[address] active 45 HISTORY OF FALLING 02/21/[address] active 46 HYPERLIPIDEMIA, UNSPECIFIED 02/21/[address] active 47 HYPOKALEMIA 02/21/[address] active 48 HYPOTENSION, UNSPECIFIED 02/21/[address] active 49 IDIOPATHIC GOUT, LEFT ANKLE AND FOOT 02/21/[address] active 50 IDIOPATHIC GOUT, RIGHT ANKLE AND FOOT 02/21/[address] active 51 LOCALIZED EDEMA 02/21/[address] active 52 LOCALIZED SWELLING, MASS AND LUMP, LOWER LIMB, BILATERAL 02/21/[address] active 53 BAKER DOUGHNUT (CURRENT) USE OF ANTICOAGULANTS 02/21/[address] active 54 BAKER DOUGHNUT (CURRENT) USE OF ASPIRIN 02/21/[address] active 55 LUMBAGO WITH SCIATICA, UNSPECIFIED SIDE 02/21/[address] active 56 NEED FOR ASSISTANCE WITH PERSONAL CARE 02/21/[address] active 57 OBESITY, UNSPECIFIED 02/21/[address] active 58 OBSTRUCTIVE AND REFLUX UROPATHY, UNSPECIFIED 02/21/[address] active 59 OLD MYOCARDIAL INFARCTION 02/21/[address] active 60 OTHER SENIOR LIVING (CURRENT) DRUG THERAPY 02/21/[address] active 61 PERIPHERAL VASCULAR DISEASE, UNSPECIFIED 02/21/[address] active 62 PERSONAL HISTORY OF URINARY (TRACT) INFECTIONS 02/21/[address] active 63 PRESENCE OF AORTOCORONARY BYPASS GRAFT 02/21/[address] active 64 RETENTION OF URINE, UNSPECIFIED 02/21/[address] active 65 SHORTNESS OF BREATH 02/21/[address] active 66 SUBSEQUENT NON-ST ELEVATION (NSTEMI) MYOCARDIAL INFARCTION 02/21/[address] active 67 THIAMINE DEFICIENCY, UNSPECIFIED 02/21/[address] active 68 TYPE 2 DIABETES MELLITUS WITH DIABETIC NEUROPATHY, UNSPECIFIED 02/21/[address] active 69 TYPE 2 DIABETES MELLITUS WITHOUT COMPLICATIONS 02/21/[address] active 70 TYPICAL ATRIAL FLUTTER 02/21/[address] active 71 UNSPECIFIED ATRIAL FIBRILLATION 02/21/[address] active 72 UNSPECIFIED KYPHOSIS, THORACIC REGION 02/21/[address] active 73 UNSPECIFIED OSTEOARTHRITIS, UNSPECIFIED SITE 02/21/[address] active 74 VITAMIN B12 DEFICIENCY ANEMIA, UNSPECIFIED 02/21/[address] active 75 VITAMIN D DEFICIENCY, UNSPECIFIED 02/21/[address] active 76 XEROSIS CUTIS 02/21/[address] active 77 PERSONAL HISTORY OF (CORRECTED) CONGENITAL MALFORMATIONS OF RESPIRATORY SYSTEM 09/05/[address] active 78 PERSONAL HISTORY OF OTHER DISEASES OF THE RESPIRATORY SYSTEM 09/05/[address] active 79 PRESENCE OF CARDIAC PACEMAKER 08/21/[address] active Reason for Referral No Reasons for Referral Entered Social History Social History Observation Description Start Date End Date Code Code System Current Smoking Status Tobacco smoking consumption unknown 839593586 SNOMED CT Sex Assigned At Male 1945 36361-2 [facility] Gender Identity Sexual Orientation Vital Signs Code Code System Vitals Name Values and Units Timing Information 9279-1 [facility] Respiratory Rate Value=18.0 Units=/m in 05/26/2025 85160-6 [facility] O2 % BldC Oximetry Value=97.0 Units= % 05/26/2025 59855-6 [facility] Pain Level Value=0.0 05/26/2025 8462-4 [facility] Blood Pressure-Diastolic Value=75 Un its=mmHg 05/26/2025 8480-6 [facility] Blood Pressure-Systolic Aupel=212 Un its=mmHg 05/26/2025 8867-4 [facility] Heart rate Value=72.0 Units=/min 11/2024 8310-5 [facility] Body Temperature Value=98.3 Units= F 05/07/2025 66786-8 [facility] Weight Enmkq=174.5 Units=Lbs 8302-2 [facility] Height Value=66.0 Units=Inches 01/28/2025
--- OUTSIDE RECORDS SUMMARY | 2025-05-25 22:20 | XMS_ITS | Encounter Summary ---
Author Organization [employer] Address [address] [place] [address] Care Team Providers Care Box Truck Washer Name Role Phone Homar Watson MD Primary Care Provider [phone] Encounter Details Date Type Department Care Team (Latest Contact Info) Description 03/19/2025 Lab Requisition [facility] - Main Lab [address] [facility] [place] [address] Homar Watson MD [address] [place] [phone] Anemia, unspecified; Type 2 diabetes mellitus without complications (CMS/HCC V24, CMS/[facility] V28) Social History Tobacco Use Types Packs/Day [...] 2 diabetes mellitus without complications (CMS/HCC V24, CMS/[facility] V28) documented in this encounter Care Teams Box Truck Washer Relationship Specialty Start Date End Date Homar Watson MD [address] [place] [phone] PCP - General Family Medicine 07/11/24 documented as of this encounter
--- OUTSIDE RECORDS SUMMARY | 2025-05-25 22:20 | XMS_ITS | Encounter Summary ---
Author Organization [employer] Address [address] [place] [address] Care Team Providers Care Catholic Priest Name Role Phone Homar Watson MD Primary Care Provider [phone] Encounter Details Date Type Department Care Team (Latest Contact Info) Description 03/18/2025 Lab Requisition [facility] - Main Lab [address] [facility] [place] [address] Homar Watson MD [address] [place] [phone] Anemia, unspecified; Type 2 diabetes mellitus without complications (CMS/HCC V24, CMS/[facility] V28) Social History Tobacco Use [...] diabetes mellitus without complications (CMS/HCC V24, CMS/[facility] V28) documented in this encounter Care Teams Catholic Priest Relationship Specialty Start Date End Date Homar Watson MD [address] [place] [phone] PCP - General Family Medicine 07/11/24 documented as of this encounter
--- OUTSIDE RECORDS SUMMARY | 2025-05-25 22:20 | XMS_ITS | Clinical Summary ---
Author Organization [facility] Address [address] [place] [address] Care Team Providers Care Chef Manager Name Role Phone Homar Patel Primary Care Provider Unavaila ble Allergies Active Allergy Reactions Criticality Noted Date Comments Penicillins Hives 08/12/2022 Medications cyanocobalamin (VITAMIN B12) 500 mcg tablet Take 500 mcg by mouth once a day. Active tamsulosin (FLOMAX) 0.4 mg capsule Take 0.4 mg by mouth once a day. Active docusate sodium (COLACE) 100 mg capsule Take 1 capsule (100 mg total) by mouth 2 times a day. 3 Active albuterol 2.5 mg/3 mL (0.083%) nebulizer solution Inhale 1 vial via nebulizer every 6 hours as needed for wheezing or shortness of breath. Active aspirin 81 mg EC tablet Take 81 mg by mouth once a day. Active atorvastatin (LIPITOR) 80 mg tablet Take 80 mg by mouth nightly. Active cholecalciferol (VITAMIN D3) 1,000 unit tablet Take 2,000 Units by mouth once a day. Active acetaminophen (TYLENOL) 325 mg tablet Take 2 tablets (650 mg total) by mouth every 6 hours as needed for pain, headache or fever. 3 Active polyethylene glycol 3350 (MIRALAX) 17 gram packet Take 1 packet (17 g total) by mouth once a day. Mix powder in 4 to 8 oz of water, juice, coffee, or tea prior to administration . 1 packet 3 Active multivitamin tablet Take 1 tablet by mouth once a day. 0 3 Active thiamine mononitrate (VITAMIN B1) 100 mg tablet Take 1 tablet (100 mg total) by mouth once a day. 3 Active apixaban (ELIQUIS) 5 mg tablet Take 5 mg by mouth every 12 hours. Active metoprolol tartrate (LOPRESSOR) 25 mg tablet Take 0.5 tablets (12.5 mg total) by mouth 2 times a day. 3 Active furosemide (LASIX) 20 mg tablet Take 1 tablet (20 mg total) by mouth 2 times a day. 60 tablet 1 3 Active potassium chloride ER (KLOR-CON) 20 mEq tablet Take 1 tablet (20 mEq total) by mouth once a day. 30 tablet 1 3 Active empagliflozin (Jardiance) 10 mg Take 10 mg by mouth once a day. Active gabapentin (NEURONTIN) 100 mg capsule Take 100 mg by mouth. Active allopurinoL (ZYLOPRIM) 100 mg tablet Take 100 mg by mouth once a day. Active colchicine (COLCRYS) 0.6 mg tablet Take 0.6 mg by mouth daily. Active Active Problems Problem Noted Date Diagnosed Date Chest pain 10/27/2023 Class 2 severe obesity due t o excess calories with serious comorbidity and body mass index (BMI) of 37.0 to 37.9 in adult 10/27/2023 Malnutrition 09/21/2022 Assessment & Plan (09/21/2022 9:14 PM EST): NUTRITION CONSULT: Level Of Malnutrition: Severe Malnutrition Malnutrition present on admission?: Yes Malnutrition in the Context of Acute Illness or Injury Energy Intake (% of estimated energy requirement): </equal 50% for >/equal 5 days Weight Loss (% change from baseline over time): >5% over 1 month Interventions / Recommendations: - Consider downgrading diet to Easy to Chew - Add Ensure HP Bid (Breakfast, Lunch - Vanilla) - Add thiamin supplementation Dehydration 09/19/2022 Decreased activities of daily living (ADL) 08/23 Mobility impaired 08/22/2022 Assessment & Plan (09/23/2022 8:13 PM EST): PT consult this admission. Needs rehab. S/P CABG x 4 2022 Assessment & Plan (08/23/2022 10:35 PM EST): DAMON to LAD, SVG to diagonal, SVG to OM, SVG to PDA on 08/18/[address] Strickland. ASA, statin, beta raul post-op Essential hypertension 08/12/2022 Assessment & Plan (09/19/2022 11:32 PM EST): Will continue with Lopressor 12.5 mg q 12 hrs Assessment & Plan (08/21/2022 7:19 PM EST): Preadmission metoprolol, amlodipine and torsemide. Lopressor resumed at 12.5 mg BID on POD #3 Assessment & Plan (08/14/2022 10:40 AM EST): Hx of HTN, on amlodipine 10 mg daily and torsemide 20 mg BID at home. >>Torsemide on hold d/t YNES and pt euvolemic >>Amlodipine on hold 08/13 d/t soft BPs >>SBPs today are 110-120's Plan: -Cont metoprolol tartrate 25mg PO BID -HOLD amlodipine -HOLD torsemide as he is euvolemic on exam -BPs on left arm only due to BP differential -AHA diet Mixed hyperlipidemia 08/12/2022 Assessment & Plan (09/19/2022 11:37 PM EST): Continue Atorvastatin 80 mg QHS Assessment & Plan (08/20/2022 10:32 AM EST): Preadmission atorvastatin restarted and increased to high intensity post CABG. Assessment & Plan (08/14/2022 10:41 AM EST): Mixed hyperlipidemia with LDL 167 mg/dL, trigs 225, HDL 28. On atorvastatin 20 mg at home, which was increased to 80mg in light of CAD diagnosis. Plan: -Continue increased dose of atorvastatin at 80 mg HS -Goal LDL <70 -AHA diet Atrial flutter 08/12/2022 Assessment & Plan (08/28/2022 10:00 PM EST): Preadmission lopressor and eliquis. CHRISTOPHER clip applied intraoperatively. Postoperative anticoagulation with Coumadin, Heparin bridge low intensity protocol Assessment & Plan (08/14/2022 10:42 AM EST): Hx of Aflutter with CHADSVASc 6 (age, HTN, DM2, CHF, and PVD), on eliquis 5 mg BID at home. On tele pt is V paced with underlying aflutter. No signs of bleeding on exam. Patient denies any hematuria, melena or bright red blood with bowel movements. >>Eliquis on hold as pt is on hep gtt for ACS Plan: -Cont Heparin gtt per ACS protocol -HOLD eliquis -Continue lopressor 25 mg BID -Telemetry monitoring SSS (sick sinus syndrome) 08/12/2022 Assessment & Plan (09/19/2022 11:34 PM EST): S/P PPM, [employer] Remains V paced 70 bpm Assessment & Plan (08/20/2022 10:05 AM EST): Single chamber [employer] PPM present. Assessment & Plan (08/14/2022 10:43 AM EST): Hx of SSS s/p [employer] single chamber PPM. Paced rhythm on telemetry with PVCs and underlying Aflutter. PAD (peripheral artery disease) 08/12/2022 Assessment & Plan (09/19/2022 11:39 PM EST): L femoral endarterectomy/thrombectomy on 08/[address] Bennett Continue ASA, statin therapy Patient with doppler signals L DP Assessment & Plan (08/27/2022 11:01 PM EST): Patient was cleared by vascular surgery for CABG. Poor flow to lower extremities. Continue to monitor BLE DP/PTs. LLE angiogram 08/25 ?revascularization this admission Patient with poor doppler signal L AT Patient is s/p LLE angiogram 08/25 L femoral endarterectomy/thrombectomy on 08/[address] Bennett Assessment & Plan (08/15/2022 9:14 AM EST): Patient presents to [facility] with bilateral lower extremity pain. Patient describes symptoms of claudication worsening with activity. Patient states that his pain is worse in his left leg. No signs of necrosis, and leg is pink. Patient had DANIEL/TBI at [place] that showed on the 0mmHG LLE DP/PT and 91 mmHg RLE DP and 98mmHg RLE PT suggestive of severe PAD. Venous duplex negative for DVT. Left DP pulses are not dopplerable at [facility] and at [facility]. Vascular surgery was consulted at [facility] and recommended LLE angiography. Vascular surgery consulted at [facility] on 08/12/22. Recommended high intensity statin and aspirin as well as outpatient follow-up 1 month after CABG. However cardiac surgery expressed concerns of limb ischemia during CABG evaluation and is requesting CT angio aorta with distal runoffs. After study is obtained discussion can be had between cardiac surgery, cardiology and vascular surgery to discuss risks of CABG. Plan: -Vascular surgery consulted, and signed off at this time -Q2H neurovascular checks BLE: DP/PT changed to every 12 hours given stable neurovascular checks -ABIs with transmetatarsal pressures completed, showing poor flow -CTA aorta with distal runoff completed this AM --> Dr Strickland to review Type 2 diabetes mellitus, [facility] long-term current use of insulin 08/12/2022 Assessment & Plan (09/19/2022 11:37 PM EST): Low dose SSI [facility] Dietary modification Assessment & Plan (08/20/2022 10:32 AM EST): Baseline hemoglobin A1c 5.7. Preadmission metformin. Current glycemic control with subcutaneous insulin. Assessment & Plan (08/14/2022 10:46 AM EST): Type II diabetic on metformin 500mg BID. A1C 5.7%. Patient denies ever having been on insulin. Blood sugars this hospitalization have been well controlled. Metformin on hold. Plan: -Hold metformin -FSBS QAC/HS with LDISS prn -ADA diet (HFpEF) heart failure with preserved ejection fr action 08/12/2022 Assessment & Plan (09/20/2022 9:43 PM EST): Lasix currently being held given admission for dehydration requiring IVF Patient scheduled for TTE 09/20 Cardiology consulted troponin leak, likely demand ischemia TTE (09/20): EF 55-60%, no valve disease, no pericardial effusion. RV function now low normal as compared to prior TTE on 08/12/22 Assessment & Plan (08/31/2022 8:59 PM EST): Preop EF: 65-70%. Preadmission torsemide stopped in favor of IV lasix POD# 3. Now on Lasix 40 mg po daily. Assessment & Plan (08/14/2022 10:47 AM EST): Patient has a history of CHF per [facility] documentation with last TTE on August 2021 shows an EF of 55 to 60%, restrictive left ventricular diastolic filling pattern, and elevated left atrial pressure. Echo further shows an atrial septal defect left to right flow, likely PFO. There is trace aortic regurgitation, mild mitral regurgitation, and mild tricuspid regurgitation, PASP 28 mmHg. At [place], BNP was elevated at 259 in the setting of obesity with BMI 35.83kg/m2. He was given IV fluids at [facility] with improvement in his renal function from 1.7 back to his baseline and to 1.54. Cardiac cath showed normal LVEDP. He has no lower extremity edema, JVD or hepatojugular reflex on exam. His weight decreased from 100.7 kg to 98.8 kg in 24 hours. Plan: -I&Os, daily weights, Na restricted diet -AHA diet -Hold torsemide 20 mg Bid 2/2 YNES and apparent euvolemia on exam BPH (benign prostatic hyperplasia) 08/12/2022 Assessment & Plan (09/19/2022 11:36 PM EST): Continue Ditropan and Flomax Assessment & Plan (08/20/2022 10:30 AM EST): Preadmission tamsulosin and oxybutynin restarted. Assessment & Plan (08/14/2022 10:47 AM EST): Chronic, on oxybutynin 5 mg 3 times a day and tamsulosin 0.4 mg daily. Plan: -cont home meds NSTEMI (non-ST elevated myocardial infarction) 1 10/13/2021 Coronary artery disease 08/12/2022 Assessment & Plan (09/19/2022 11:35 PM EST): S/P CABG x4 08/18/22 ASA and beta raul resumed Continue with statin therapy Assessment & Plan (08/23/2022 10:34 PM EST): Multivessel CAD per cardiac catheterization. Now status post CABG. ASA, statin LVH (left ventricular hypertrophy) 08/12/2022 Assessment & Plan (08/14/2022 10:48 AM EST): Patient underwent TTE on 08/12/2022 showing vigorous LVEF (65 to 70%) as well as significant LVH. Given there was also reduced global longitudinal strain as well as reduced tissue Doppler velocities the question was raised of infiltrative cardiomyopathy including amyloidosis. Plan: -Serum immunofixation as well as free light chains were sent & are pending results -Can consider outpatient cardiac MRI Chronic anticoagulation 08/12/2022 Resolved Problems Problem Noted Date Diagnosed Date Resolved Date Postoperative hypotension 2022 Assessment & Plan (08/20/2022 10:01 AM EST): We will wean midodrine as tolerated. Angina pectoris, unstable 08/12/2022 Assessment & Plan (08/23/2022 10:32 PM EST): Now S/P CABG Assessment & Plan (08/17/2022 9:05 AM EST): Joao Olguin is a 76 y.o. male with CKD, HTN, HLD, HFpEF, Atrial Flutter on Eliqius, SSS s/p single chamber [employer] PPM, PVD, BPH, NIDDM on metformin only, and obesity who presented to [facility] from [facility] with complaints of acute worsening of chronic shortness of breath and bilateral LE pain (worse in the left) with exertion. Patient endorses 2 months of intermittent shortness of breath and chest pain not completely associated with exertion. EKG showed V paced rhythm with underlying aflutter.high sensitivity troponin peaked 62. CTA unremarkable. He had an asymptomatic nuc stress test with small to moderate sized defect of mild intensity in the anteroapical wall of the left ventricle that improved at rest. LVEF 49%. TTE as of 08/2021 showed an EF 55-60% with a restrictive diastolic filling pattern. No current TTE on file. Attempted to perform a cardiac catheterization at [place] [facility] via the right radial artery, however the wire was unable to be passed (known vasculopath) and poor plethysmography. The cardiac cath was aborted and he was transferred to [facility] for cardiac catheterization. 08/12/22: Now s/p successful cardiac catheterization with Dr. Amado showing: LVEDP 12mmHg, R dominant coronary anatomy, 3v CAD (including mid LAD [employer]ULT [employer] with L-L and R-L collaterals). 08/14: pt remains stable without chest pain or SOB. CTS work-up in process. Dr Strickland requesting CTA aorta with distal runoffs (ordered/pending) for further vascular work-up. Pt remains on hep gtt. GDMT with ASA, high dose statin, BB. 08/15: HD stable without CP or SOB. CTA aorta with distal runoffs completed early this AM --> Dr Strickland to review. Remains on hep gtt 08/16: BP on the softer side low 100s, however BP was switched to the leg... which has extensive arterial stenosis and blockages and is inaccurate. 08/17: Chest pain free, no events overnight Plan: -CABG w/Dr. Strickland 08/18 -Cont heparin gtt -Daily BMP, CBC -Cont ASA 81mg daily, Atorvastatin 80mg QHS, Metoprolol tartrate 25mg BID -NTG SL & EKG PRN chest pain -Telemetry monitoring -BP on Left arm Encounters Date Type Department Care Team Description 05/15/2025 Orders Only [facility] Special[facility] Surgical Services at [place] [address] [place] [address] Dank Smith NP PVD (peripheral vascular disease) (Primary Dx) 05/15/2025 Orders Only [facility] Vascular Surgery [address] [place] [id number] [employer] Winding Operator: Monse Cordoba NP PVD (peripheral vascular disease) (Primary Dx) from Last 3 Months Immunizations Immunization Administration Dates Next Due Influenza, Injectable, Quadr ivalent, Preservative Free 08/13/2022(Deferred: Patient Refused) Family History Medical History Relation Name Comments Alcohol abuse Father Cirrhosis Father No Known Problems Mother Relation Name Status Comments Father Mother Social History Tobacco Use Types Packs/Day Years Used Date Smoking Tobacco: Former Cigarettes Q uit: 08/21/1991 Smokeless Tobacco: Never Tobacco Cessation:Counseling Given: Not Answered Alcohol Use Standard Drinks/Week Comments Not Currently 0 (1 standard drink = 0.6 oz pur e alcohol) quit 52 years ago Sex and Gender Information Value Date Recorded Sex Assigned at Male 08/12/2022 7:42 AM EST Legal Sex Male 5:18 PM EST Gender Identity Male 08/12/2022 7:42 AM EST Sexual Orientation Not on file Last Filed Vital Signs Vital Sign Reading Time Taken Comments Blood Pressure 98/67 10/30/2023 5:12 PM EDT Pulse 70 10/29/2023 11:26 PM EDT Temperature 36.6 C (97.9 F) 10/30/2023 4:35 PM EDT Respiratory Rate 17 10/30/2023 4:35 PM EDT Oxygen Saturation 90% 10/30/2023 4:35 PM EDT nurse aware Inhaled Oxygen Concentration - - Weight 104.8 kg (231 lb) 10/30/2023 10:51 AM EDT Height 167.6 cm (5' 6 ) 10/30/2023 10:51 AM EDT Body Mass Index 37.28 10/30/2023 10:51 AM EDT Plan of Treatment Upcoming Encounters Date Type Department Care Team (Late st Contact Info) Description 06/09/2025 1:00 PM EDT Appointment [facility] Vascular [facility] [address] [place] [address] 06/09/2025 1:45 PM EDT Appointment [facility]ascular Lab [address] [place] [address] 06/09/2025 2:40 PM EDT Follow-Up [facility] Vascular Surgery [address] [place] [address] [employer] Winding Operator: Rolando Francis MD [address] [place] [phone] 06/20/2025 4:30 PM EDT Office Visit [facility] 4th floor Cardiology Medicine [address] [place] [address] [employer] W[employer] Operator: Chris Jung MD [address] [place] [address] [id number] Health Maintenance Due Date Last Done Comments Ophthalmology Exam 1955 Urine Microalbumin 1955 Pneumococcal Vaccine: 50+ Years (1 of 2 - PCV) 1964 DTaP,Tdap,and Td Vaccines (1 - Tdap) 1967 Zoster Vaccines (1 of 2) 1995 RSV Vaccine (60+ years old and patients) (1 - 1-dose 75+ series) 2020 Hemoglobin A1C 04/30/2024 10/29/2023, 08/13/2022 Alcohol/Substance Use Screening 08/21/2024 Depression Screening and Follow-Up 08/21/2024 Health Care Proxy Review 08/21/2024 Social Drivers of Health Annual Screening 08/21/2024 Basic Metabolic Panel 10/29/2024 10/30/2023 , 10/29/2023, 10/27/2023, Additional history exists COVID-19 Vaccine ( season) 2025 08/01/2021, 10/05/2020, 09/07/2020 Influenza Vaccine (#1) 2025 Hepatitis C Screening Completed 09/18/2021 Hepatitis B Vaccines Aged Out No long er eligible based on patient's age to complete this topic Medical Devices Implanted Type Area C Developer Device Identifier Shelf Expiration Date Model / Serial / Lot Device Exclusion Christopher With Preloaded V-Clip Single Use Sterile 45mm Atriclip Flex-V - [id number] - [id number] Implanted:Qty: 1 on 2022 by Shanita Strickland MD at [facility] Implant N/A: Heart ATRICURE 05/21/2025 [id number] / [id number] / Description:Left Atrium appe ndage clip Patch Carotid Peripatch [id number] Xenosure - [id number] Implanted:Qty: 1 on 08/26/2022 by Rolando Bennett MD at [facility] Implant LEMAITRE VASCULAR 04/17/2028 [id number] / / [id number] Description:Lot number for s ashish prep [id number] Implanted:08/22 (Quantity not on file) Pacemaker [employer] [id number] / [id number] / Procedures * Due to [place] [employer] law, this organization might not be sharing negative HIV tests. Procedure Name Priority Date/Time Associated Diagnosis Comments COMPREHENSIVE METABOLIC PANEL Routine 10/30/2023 7:35 AM EDT HEMOGLOBIN A1C Routine 10/29/2023 4:36 AM EDT HEPATITIS C ANTIBODY W/REFLEX TO HCV RNA, QUANTITATIVE PCR Routine 09/18/2021 6:52 AM EST from Last 3 Months or Most Recently Relevant to Health Maintenance Results * Due to [place] [employer] law, this organization might not be sharing negative HIV tests. * (ABNORMAL) Comprehensive Metabolic Panel (10/30/2023 7:35 AM EDT) NA 139 136 - 145 mmol/L 10/30/2023 8:10 AM EDT [facility] K 3.9 3.5 - 5.3 mmol/L 10/30/2023 8:10 AM EDT [facility] Cl 107 98 - 107 mmol/L 10/30/2023 8:10 AM EDT [facility] CO2 28 22 - 30 mmol/L 10/30/2023 8:10 AM EDT [facility] Anion Gap 4(L) 5 - 15 10/30/2023 8:10 AM EDT [facility] Glucose 115(H) 70 - 99 mg/dL 10/30/2023 8:10 AM EDT [facility] Creatinine 1.20 0.60 - 1.30 mg/dL 10/30/2023 8:10 AM EDT [facility] Calcium 9.5 8.5 - 10.1 mg/dL 10/30/2023 8:10 AM EDT [facility] Total Protein 7.6 6.4 - 8.2 g/dL 10/30/2023 8:10 AM EDT [facility] Albumin 3.6 3.4 - 5.0 g/dL 10/30/2023 8:10 AM EDT [facility] Bilirubin, Total 1.2 0.3 - 1.2 mg/dL 10/30/2023 8:10 AM EDT [facility] Alkaline Phosphatase 76 50 - 136 U/L 10/30/2023 8:10 AM EDT [facility] AST 34 15 - 37 U/L 10/30/2023 8:10 AM EDT [facility] ALT 45 12 - 78 U/L 10/30/2023 8:10 AM EDT [facility] BUN 19(H) 7 - 18 mg/dL 10/30/2023 8:10 AM EDT [facility] eGFR 62 >=60 mL/min/1 .73m2 10/30/2023 8:10 AM EDT [facility] Comment:The estimated glomer ular filtration rate (eGFR) is calculated using a new formula developed by the NKF-ASN task force to eliminate race-based correction factors. The new formula uses serum/plasma creatinine, age, and gender to determine eGFR. A value below 60mls/min might indicate kidney disease and will be flagged. For additional information, see Tarah gibbons al, Am J Kidney Dis. 2021;79(2):268- 288, A Unifying Approach for GFR estimation: Recommendations of the NKF-ASN Task Force on Reassessing the Inclusion of Race in Diagnosing Kidney Disease . Blood Structure of peripheral vein / Unknown Venipuncture / Unknown 10/30/2023 7:35 AM EDT 10/30/2023 7:44 AM EDT Malina Bales MD LAB BLOOD ORDERABLES Alfreda l Result Performing Organization Address [facility] Co de Phone Number [facility] CENTERCadent SkatazUNITED STATES AIR [facility] [address] [place] [phone], * (ABNORMAL) Hemoglobin A1c (10/29/2023 4:36 AM EDT) Hemoglobin A1c 6.3(H) <5.7 % 10/29/2023 5:16 AM EDT [facility] PlutoraALLEGIANCE SPECIALTY HOSPITAL OF GREENVILLELionexpoUNITED STATES [facility] Comment: Patients >=18 years: 5.7-6.4% Increased risk for diabetes (prediabetes) >= 6.5% Diabetes Patients <18 years: Hemoglobin A1c criteria for diagnosing diabetes have not been established for this age range. Estimated Average Glucose 134 mg/dL 10/29/2023 5:16 AM EDT [facility] [employer] [facility] ROCKWALLSoylent Corporation [facility]ENTERLionexpoUNITED [facility] Blood Structure of peripheral vein / Unknown Venipuncture / Unknown 10/29/2023 4:36 AM EDT 10/29/2023 4:57 AM EDT Malina Bales MD LAB BLOOD ORDERABLES Alfreda l Result Performing Organization Address [facility]/ZIP Co de Phone Number [facility] [employer] [facility] MevvyUNITED STATES [facility] [address] [place] [phone], * Hepatitis C Antibody w/Reflex to HCV RNA, Quantitative PCR (09/18/2021 6:52 AM EST) Hepatitis C Virus Antibody Nonreactive NonReactive 09/18/2021 6:52 AM EST [facility] 09/18/2021 6:52 AM EST us Niko Perez LAB BLOOD ORDERABLES Edited R esult - Final [facility] [address] [place] [address], [place] from Last 3 Months or Most Recently Relevant to Health Maintenance Insurance [facility] Member Subscriber Plan / Payer (Ef fective 2018-Present) Name:Joao Olguin Relation to Subscriber:Self Name:Joao Olguin Payer ID:[id number] Type:Not on file [phone] Address: [address] [place] [id number] HSNO/[employer] [facility] [employer] Member Subscriber Plan / Payer (Ef fective 2018-Present) Name:Joao Olguin Relation to Subscriber:Self Name:Joao Olguin Payer ID:[id number] Type:Not on file [phone] Address: [address] [place] [phone] Advance Directives Documents on File Type Date Recorded Patient Mat Cutter Expl [facility] Health Care Proxy 08/12/2022 8:36 AM 09-12 * Full Code (Latest Code Status on File) Date Activated Date Inactivated Comments 10/27/2023 6:37 PM 10/30/2023 7:59 PM * Full Code Date Activated Date Inactivated Comments 09/19/2022 6:59 PM 09/26/2022 3:12 PM * Full Code Date Activated Date Inactivated Comments 2022 3:51 PM 09/01/2022 3:16 PM * Full Code Date Activated Date Inactivated Comments 08/12/2022 7:44 AM 2022 3:51 PM Care Teams Chef Manager Relationship Specialty Start Date End Date Homar Patel [address] [place] [id number] PCP - General Rheumatology 05/15/25
--- OUTSIDE RECORDS SUMMARY | 2025-05-25 22:20 | XMS_ITS | Encounter Summary ---
Author Organization [employer] Address [address] [place] [address] Care Team Providers Care Sprue Knocker Name Role Phone Homar Watson MD Primary Care Provider [phone]- [phone] Encounter Details Date Type Department Care Team (Late st Contact Info) Description 10/12/2024 Lab Requisition [facility] - Main Lab [address] [facility] [employer] [place] [address] Homar Watson MD [address] [place] [address] Acute sinusitis, unspecified Social History [...] Sputum No pathogens isolated. 10/15/2024 8:43 AM [facility] Gram Stain Result >25 WBCs, 10-25 Epithelials - Acceptable for Culture(A) 10/15/2024 8:43 AM EST [facility] Gram Stain Result Many Polymorphonuclear leukocytes(A) 10/15/2024 8:43 AM [facility] Gram Stain Result Rare Epithelial cells(A) 10/15/2024 8:43 AM [facility] Gram Stain Result Moderate Gram positive cocci in pairs(A) 10/15/2024 8:43 AM EST [facility] Sputum, expectorated Lung structure / Unknown Non-blood Collection / Unknown 10/11/2024 7:30 PM EST 10/12/2024 10:30 AM EST us Homar Watson MD LAB MICROBIOLOGY - GENERAL O RDERABLES Final Result [facility] [address] [place] [address], documented in this encounter Visit Diagnoses Diagnosis Acute sinusitis, unspecified documented in this encounter Care Teams Sprue Knocker Relationship Specialty Start Date End Date Homar Watson MD [address] [place] [address] PCP - General Family Medicine 07/11/24 documented as of this encounter
--- OUTSIDE RECORDS SUMMARY | 2025-05-25 22:20 | XMS_ITS | Encounter Summary ---
Author Organization [employer] Address [address] [place] [address] Care Team Providers Care General Farmworker Name Role Phone Homar Watson MD Primary Care Provider [phone]- [phone] Encounter Details Date Type Department Care Team (Late st Contact Info) Description 10/26/2024 Lab Requisition [facility] - Main Lab [address] [facility] [place] [address] Homar Watson MD [address] [place] [id number] Anemia, unspecified; Heart failure, unspecified (CMS/HCC V24, [...] unspecified documented in this encounter Care Teams General Farmworker Relationship Specialty Start Date End Date Homar Watson MD [address] [place] [address] PCP - General Family Medicine 07/11/24 documented as of this encounter
--- OUTSIDE RECORDS SUMMARY | 2025-05-25 22:20 | XMS_ITS | Encounter Summary ---
Author Organization [employer] Address [address] [place] [address] Care Team Providers Care Round Boner Name Role Phone Homar Watson MD Primary Care Provider [phone]- [phone] Encounter Details Date Type Department Care Team (Latest Contact Info) Description 07/11/2024 Lab Requisition [facility] - Main Lab [address] [place] [address] Homar Watson MD [facility] [place] [address] Chronic kidney disease, unspecified; Type 2 diabetes mellitus without complications (CMS/HCC V24, CMS/[facility] V28) Social History Tobacco Use [...] unspecified Type 2 diabetes mellitus without complications ([facility]) documented in this encounter Results * (ABNORMAL) Basic metabolic panel (07/11/2024 5:11 AM EST) Sodium 141 133 - 145 mmol/L LAB CHEMISTRY METHOD 07/11/2024 9:03 AM EST [facility] Potassium 4.5 3.5 - 5.5 mmol/L LAB CHEMISTRY METHOD 07/11/2024 9:03 AM EST [facility] Chloride 102 96 - 110 mmol/L LAB CHEMISTRY METHOD 07/11/2024 9:03 AM EST [facility] CO2 34(H) 21 - 32 mmol/L LAB CHEMISTRY METHOD 07/11/2024 9:03 AM [facility] Anion Gap 5 3 - 11 LAB CHEMISTRY METHOD 07/11/2024 9:03 AM [facility] Glucose 134(H) 70 - 100 mg/dL LAB CHEMISTRY METHOD 07/11/2024 9:03 AM [facility] BUN 21 5 - 25 mg/dL LAB CHEMISTRY METHOD 07/11/2024 9:03 AM [facility] Creatinine 1.31(H) 0.70 - 1.30 mg/dL LAB CHEMISTRY METHOD 07/11/2024 9:03 AM [facility] eGFR 56(L) >=60 mL/min/1. 73m2 LAB CHEMISTRY METHOD 07/11/2024 9:03 AM [facility] Comment:Calculation based on the Chronic Kidney Disease Epidemiology Collaboration (CKD-EPI) equation refit without adjustment for race. BUN/Creatinine Ratio 16.0 LAB CHEMISTRY METHOD 07/11/2024 9:03 AM [facility] Calcium 9.3 8.5 - 10.5 mg/dL LAB CHEMISTRY METHOD 07/11/2024 9:03 AM [facility] Blood Venous blood specimen / Unknown Venipuncture / Unknown 07/11/2024 5:11 AM EST 07/11/2024 7:54 AM EST us Homar Watson MD LAB BLOOD ORDERABLES Final R esult [facility] [address] [place] [address], documented in this encounter Visit Diagnoses Diagnosis Chronic kidney disease, unspecified Type 2 diabetes mellitus without complications (CMS/HCC V24, CMS/HCC V28) documented in this encounter Care Teams Round Boner Relationship Specialty Start Date End Date Homar Watson MD [address] [place] [address] PCP - General Family Medicine 07/11/24 documented as of this encounter
--- OUTSIDE RECORDS SUMMARY | 2025-05-25 22:20 | XMS_ITS | Encounter Summary ---
Author Organization [email or web address] Address [address] [place] [address] Care Team Providers Care Armorer Technician Name Role Phone Homar Watson MD Primary Care Provider [phone]- [phone] Encounter Details Date Type Department Care Team (Late st Contact Info) Description 10/24/2024 Lab Requisition [facility] - Main Lab [address] [place] [address] Homar Watson MD [address] [place] [address] Acute cough Social History Tobacco [...] Procedure Name Priority Date/Time Associated Diagnosis Comments [id number], RSV, FLU A AND B QUALITATIVE RT-PCR, LOCAL REFERENCE LAB Routine 10/23/2024 12:00 AM EST Acute cough documented in this encounter Results * [id number], RSV, Influenza A and B qualitative RT-PCR (10/23/2024 12:00 AM EST) SARS COV-2 Not Detected Not Detected LAB MOLECULAR DIAGNOSTICS METHOD 10/24/2024 3:42 PM EST [email or web address] Comment: Disclaimer: The manner in which this information is used to guide patient care is the responsibility of the healthcare provider. Testing was performed using the appening [employer] m SARS-CoV-2 test. This test has [...] for Healthcare Providers can be found at: https://www.fda.gov/media/824062/download Fact sheet for Patients can be found at: https://www.fda.gov/media/846113/download Influenza A PCR Not Detected Not Detected LAB MOLECULAR DIAGNOSTICS METHOD 10/24/2024 3:42 PM EST [facility] Influenza B PCR Not Detected Not Detected LAB MOLECULAR DIAGNOSTICS METHOD 10/24/2024 3:42 PM EST [facility] RSV PCR Not Detected Not Detected LAB MOLECULAR DIAGNOSTICS METHOD 10/24/2024 3:42 PM EST [facility] Swab Nasopharyngeal structure / Unknown 10/23/2024 10/24/2024 10:52 AM EST Homar Watson MD LAB MICROBIOLOGY - GENERAL O RDERABLES Final Result [facility] [address] [place] [address], documented in this encounter Visit Diagnoses Diagnosis Acute cough documented in this encounter Care Teams Armorer Technician Relationship Specialty Start Date End Date Homar Watson MD [address] [place] [address] PCP - General Family Medicine 07/11/24 documented as of this encounter
--- OUTSIDE RECORDS SUMMARY | 2025-05-25 22:20 | XMS_ITS | Encounter Summary ---
Author Organization [employer] Address [address] [place] [address] Care Team Providers Care Hogshead Hand Name Role Phone Homar Watson MD Primary Care Provider [phone]- [phone] Encounter Details Date Type Department Care Team (Late st Contact Info) Description 01/20/2025 Lab Requisition [facility] - Main Lab [address] [facility] [place] [address] Homar Watson MD [address] [place] [address] Elevated urine levels of drugs, [...] LAB CHEMISTRY METHOD 01/20/2025 8:40 AM EDT [facility] Comment:Certain OTC medicati ons containing ephedrine, phenylephrine, pseudoephedrine and phenylpropanolamine can cause false positive results. Barbiturate Screen, Ur Negative Negative LAB CHEMISTRY METHOD 01/20/2025 8:40 AM EDT [facility] Benzodiazepine Screen, Ur Negative Negative LAB CHEMISTRY METHOD 01/20/2025 8:40 AM EDT [facility] Cocaine Screen, Ur Negative Negative LAB CHEMISTRY METHOD 01/20/2025 8:40 AM [facility] Opiate Screen, Ur Negative Negative LAB CHEMISTRY METHOD 01/20/2025 8:40 AM [facility] Cannabinoid (THC) Screen, Ur Negative Negative LAB CHEMISTRY METHOD 01/20/2025 8:40 AM [facility] Comment:Specimens from patie nts taking pantoprazole sodium (Protonix) have been shown to produce false positive results. Oxycodone Screen, Ur Negative Negative LAB CHEMISTRY METHOD 01/20/2025 8:40 AM [facility] Fentanyl, Ur Negative Negative LAB CHEMISTRY METHOD 01/20/2025 8:40 AM [facility] Urine Urine specimen obtained by clean catch procedure / Unknown 01/20/2025 5:44 AM EDT 01/20/2025 7:24 AM EDT Narrative [facility] - 01/20/2025 8:40 AM EDT Assay [...] MD LAB URINE ORDERABLES Final R esult [facility]) [facility] [address] [place] [address], documented in this encounter Visit Diagnoses Diagnosis Elevated urine levels of drugs, medicaments and biological substances documented in this encounter Care Teams Hogshead Hand Relationship Specialty Start Date End Date Homar Watson MD [address] [place] [address] PCP - General Family Medicine 07/11/24 documented as of this encounter
--- OUTSIDE RECORDS SUMMARY | 2025-05-25 22:20 | XMS_ITS | Encounter Summary ---
Author Organization [employer] Address [address] [place] [address] Care Team Providers Care Oil Well Services Dispatcher Name Role Phone Homar Watson MD Primary Care Provider +1- [phone] Encounter Details Date Type Department Care Team (Latest Contact Info) Description 04/22/2025 Lab Requisition [facility] - Main Lab [address] [facility] [place] [address] Homar Watson MD [facility] [place] [address] Encounter for screening, unspecified; Encounter [...] LAB CHEMISTRY METHOD 04/22/2025 1:20 PM EDT [facility] Comment:Certain OTC medicati ons containing ephedrine, phenylephrine, pseudoephedrine and phenylpropanolamine can cause false positive results. Barbiturate Screen, Ur Negative Negative LAB CHEMISTRY METHOD 04/22/2025 1:20 PM EDT [facility] Benzodiazepine Screen, Ur Negative Negative LAB CHEMISTRY METHOD 04/22/2025 1:20 PM EDT [facility] Cocaine Screen, Ur Negative Negative LAB CHEMISTRY METHOD 04/22/2025 1:20 PM EDT [facility] Opiate Screen, Ur Negative Negative LAB CHEMISTRY METHOD 04/22/2025 1:20 PM T [facility] Cannabinoid (THC) Screen, Ur Negative Negative LAB CHEMISTRY METHOD 04/22/2025 1:20 PM T [facility] Comment:Specimens from patie nts taking pantoprazole sodium (Protonix) have been shown to produce false positive results. Oxycodone Screen, Ur Negative Negative LAB CHEMISTRY METHOD 04/22/2025 1:20 PM EDT [facility] Fentanyl, Ur Negative Negative LAB CHEMISTRY METHOD 04/22/2025 1:20 PM [facility] Urine Urine specimen from urethra / Unknown Non-blood Collection / Unknown 04/21/2025 7:00 AM EDT 04/22/2025 10:42 AM EDT Narrative [facility] - 04/22/2025 1:20 PM EDT [...] MD LAB URINE ORDERABLES Final R esult [facility]) [facility] [address] [place] [address], documented in this encounter Visit Diagnoses Diagnosis Encounter for screening, unspecified Encounter for other administrative examinations documented in this encounter Care Teams Oil Well Services Dispatcher Relationship Specialty Start Date End Date Homar Watson MD [address] [place] [address] PCP - General Family Medicine 07/11/24 documented as of this encounter
[2025-05-25 22:23] LABS: INTERNATIONAL NORM RATIO 2.0 (0.9-1.1); Prothrombin Time 23.1 SEC (10.9-12.4)
[2025-05-25 22:36] LABS: Alanine Aminotransferase 29 U/L (0-40); Albumin Level 3.7 g/dL (3.5-5.0); Alkaline Phosphatase 98 U/L (39-117); Anion Gap 12 (12-20); Aspartate Amino Transferase 30 U/L (5-37); Blood Urea Nitrogen 28 mg/dL (9-16); Calcium 8.7 mg/dL (8.4-10.2); Carbon Dioxide 27 mmol/L (22-29); Chloride 101 mmol/L (96-108); Creatinine Clr Calc Pharmacy 64.4; Estimated Glomerular Filt Rate > 60; Magnesium 1.7 mg/dL (1.6-2.6); Potassium 3.7 mmol/L (3.3-5.1); Sodium 136 mmol/L (135-145); Total Protein 6.7 g/dL (6.5-8.0)
[2025-05-25 22:44] LABS: COVID-19 Test Negative (Negative); IDNOW Serial# 55D5AD1C; IDNOW Serial# 58CA691E; Influenza B2 Negative (Negative)
[2025-05-25 22:48] LABS: Troponin-I High Sensitivity 128.8 ng/L (<3.5-35.0)
[2025-05-25 22:58] LABS: NT Pro B Type Natriuretic Pept 1310.2 pg/mL (<300)
[2025-05-25 23:28] VITALS: BP 136/60; PULSE 70; RESP 15; O2SAT 98
[2025-05-26] VITALS (7 sets, daily range): BP systolic 97–169; BP diastolic 47–68; PULSE 69–70; RESP 12–20; TEMP 36.6; O2SAT 95–97
[2025-05-26 00:02] LABS: Appearance Urine Clear; Glucose Urine UA Negative (Negative); PH 5.0 (5.0-9.0); Specific Gravity - Urine 1.015 (1.005-1.025); UMIC TRIGGER UACC YES
[2025-05-26 00:15] LABS: Cannabinoid Screen Urine Not Detected (Not Detect)
[2025-05-26 03:13] LABS: Troponin-I High Sensitivity 128.0 ng/L (<3.5-35.0)
--- NOTE | 2025-05-26 04:26 | PC.NURSE ---
Pt woke up, screaming and yelling, asking why he is here I never asked to come here . Pt requested to return back to the facility. States he is not ambulatory and uses a wheelchair at baseline. States he can take a few steps . Pt reports back pain. Oferred to reposition pt and he declined. made aware and is at bedside. Orders for pain management placed in MAR. Monitoring is ongoing.
--- NOTE | 2025-05-26 07:30 | PHA.MEDREC ---
Pharmacy Consult ? Medication Reconciliation Pharmacy has completed the medication reconciliation. Completed med rec with list from [facility].
--- NOTE | 2025-05-26 09:01 | PC.NURSE ---
patient remains agitated/uncooperative at this time. attempted to take patient's vitals when he became combative/swatting at staff. pt educated on importance of obtaining vitals but still refused. pt [facility] at [facility] time - ETA unknown. will update pt when able. plan of care ongoing.
--- NOTE | 2025-05-26 09:15 | PC.NURSE ---
pt up and OOB w/ walker. 2:1 assist needed to ambulate to the restroom to have a BM. bed change completed. pt placed in clean hospital attire. assisted back into bed/repositioned.
--- NOTE | 2025-05-26 09:56 | PC.NURSE ---
pt remains up for discharge but is unable to be transferred via EMS d/t inactive insurance purposes. attempted to call [facility] 4 times to speak with staff. this blurb writer spoke w/ different staff members and was hung up on 3 times. called the nursing inspection and testing supervisor and left a message. pending return call. plan of care ongoing.
--- NOTE | 2025-05-26 12:22 | PC.NURSE ---
per Veronica RN/CM, [facility] is arranging transport [facility]. ETA unknown. charge master coordinator notified/aware.
--- NOTE | 2025-05-26 14:43 | PC.NURSE ---
staff from [facility] here to pick patient up. report provided.
== END 2025-05-26 14:45 | disposition skilled nursing facility (03) ==
PROVIDERS: Emergency Provider Emergency Medicine; PCP Internal Medicine Rheumatology
DX: G93.40 Encephalopathy, unspecified (principal); R41.82 Altered mental status, unspecified; R06.02 Shortness of breath; I48.92 Unspecified atrial flutter; R94.31 Abnormal electrocardiogram [ECG] [EKG]; Z79.899 Other long term (current) drug therapy; Z11.52 Encounter for screening for COVID-19; Z51.81 Encounter for therapeutic drug level monitoring
CPT/HCPCS: 36415; 70450; 71045; 80053; 80307; 81001; 81003; 82803; 83605; 83735; 83880; 84484; 85025; 85610; 87040; 87502; 87635; 93005; 96374; 99285; J0131

== ENCOUNTER → 2025-05-25 21:48 | Outpatient (BNV) | payer SELFPAY | PROVIDERS: Emergency Provider Emergency Medicine; PCP Internal Medicine Rheumatology; Visit Provider Internal Medicine Cardiovascular Disease | DX: I48.92 Unspecified atrial flutter (principal); Z95.0 Presence of cardiac pacemaker | CPT/HCPCS: 93010 ==

== ENCOUNTER → 2025-05-25 21:51 | Outpatient (BNV) | payer SELFPAY | PROVIDERS: Emergency Provider Emergency Medicine; PCP Internal Medicine Rheumatology; Visit Provider Student in an Organized Health Care Education/Training Program | DX: R41.82 Altered mental status, unspecified (principal); J90 Pleural effusion, not elsewhere classified | CPT/HCPCS: 70450; 71045 ==